=== PATIENT | male | born 1955 | race Caucasian/White ===

== ENCOUNTER 2020-07-07 10:00 | Outpatient (REF) | payer MEDICARE, OTHER, SELFPAY ==
[2020-07-07 11:07] LABS: MANUAL DIFF FLAG NO
[2020-07-07 11:13] LABS: Basophils Percent Auto 0.5 % (0-2); Eosinophils Absolute Auto 0.2 X10*3/uL (0.0-0.4); Eosinophils Percent Auto 4.2 % (0-4); Hematocrit 46.7 % (42-52); Hemoglobin 15.5 g/dl (14.0-18.0); Imm Gran Abs Auto 0.01 X10*3/uL (0.00-0.03); Imm Gran Pct Auto 0.2 % (0.0-0.4); Lymphocytes Absolute Auto 2.3 X10*3/uL (1.2-4.9); Lymphocytes Percent Auto 40.2 % (20-40); Mean Corpuscular HGB Conc 33.2 g/dl (31.0-36.0); Mean Corpuscular Hemoglobin 31.2 pg (27.0-33.0); Mean Platelet Volume 10.6 fL (9.4-12.4); Monocytes Absolute Auto 0.5 X10*3/uL (0.1-1.2); Neutrophils Absolute Auto 2.7 X10*3/uL (2.0-8.3); Neutrophils Percent Auto 46.9 % (45-73); Platelet Count 174 X10*3/uL (160-400); Red Blood Count 4.97 X10*6/uL (4.60-5.80); Red Cell Distribution Width 12.6 % (11.0-16.0); White Blood Count 5.7 X10*3/uL (4.8-10.8)
[2020-07-07 12:12] LABS: Alanine Aminotransferase 38 U/L (0-40); Albumin Level 4.3 g/dL (3.5-5.0); Alkaline Phosphatase 68 U/L (39-117); Anion Gap 11 (12-20); Aspartate Amino Transferase 29 U/L (5-37); Blood Urea Nitrogen 12 mg/dL (9-16); Calcium 9.3 mg/dL (8.4-10.2); Carbon Dioxide 31 mmol/L (22-29); Chloride 104 mmol/L (96-108); Cholesterol 138 mg/dL; Estimated Glomerular Filt Rate > 60; Glucose Fasting 90 mg/dL (60-99); HDL Cholesterol 55 mg/dL; LDL Cholesterol Calculated 68 mg/dl; Potassium 4.5 mmol/L (3.3-5.1); Prostate Specific Antigen 0.38 ng/mL (<0.05-4.0); Sodium 141 mmol/L (135-145); Total Protein 6.8 g/dL (6.5-8.0); Triglycerides 78 mg/dL
== END 2020-07-07 10:01 | disposition home or self-care (01) ==
LOC: HO.MANLDS 10:00
PROVIDERS: PCP Internal Medicine; Visit Provider Internal Medicine
DX: Z00.00 Encounter for general adult medical examination without abnormal findings (principal); Z12.5 Encounter for screening for malignant neoplasm of prostate
CPT/HCPCS: 36415; 80053; 80061; 84153; 85025

== ENCOUNTER 2021-01-26 11:04 | Outpatient (REF) | payer MEDICARE, OTHER, SELFPAY ==
[2021-01-27 11:31] LABS: SARS COV2 IgG Negative (Negative)
== END 2021-01-26 11:05 | disposition home or self-care (01) ==
LOC: HO.MANLDS 11:04
PROVIDERS: PCP Internal Medicine; Visit Provider Internal Medicine
DX: Z20.822 Contact with and (suspected) exposure to COVID-19 (principal)
CPT/HCPCS: 36415; 86769

== ENCOUNTER 2021-08-06 07:39 | Outpatient (REF) | payer MEDICARE, OTHER, SELFPAY ==
[2021-08-06 11:20] LABS: Basophils Percent Auto 0.5 % (0-2); Eosinophils Absolute Auto 0.4 X10*3/uL (0.0-0.4); Eosinophils Percent Auto 5.7 % (0-4); Hematocrit 45.7 % (42.0-52.0); Hemoglobin 15.1 g/dl (14.0-18.0); Imm Gran Abs Auto 0.01 X10*3/uL (0.00-0.03); Imm Gran Pct Auto 0.2 % (0.0-0.4); Lymphocytes Absolute Auto 2.5 X10*3/uL (1.2-4.9); Lymphocytes Percent Auto 40.4 % (20-40); MANUAL DIFF FLAG NO; Mean Corpuscular Hemoglobin 30.7 pg (27.0-33.0); Mean Corpuscular Volume 92.9 fL (80.0-98.0); Mean Platelet Volume 10.8 fL (9.4-12.4); Monocytes Absolute Auto 0.5 X10*3/uL (0.1-1.2); Monocytes Percent Auto 8.4 % (2-11); Neutrophils Absolute Auto 2.8 x10*3/uL (2.0-8.3); Neutrophils Percent Auto 44.8 % (45-73); Platelet Count 166 X10*3/uL (160-400); Red Blood Count 4.92 X10*6/uL (4.60-5.80); Red Cell Distribution Width 12.8 % (11.0-16.0); White Blood Count 6.2 X10*3/uL (4.8-10.8)
[2021-08-06 12:31] LABS: Alanine Aminotransferase 24 U/L (0-40); Alkaline Phosphatase 60 U/L (39-117); Anion Gap 12 (12-20); Aspartate Amino Transferase 20 U/L (5-37); Bilirubin Total 0.6 mg/dL (0.0-1.0); Blood Urea Nitrogen 15 mg/dL (9-16); Calcium 9.1 mg/dL (8.4-10.2); Carbon Dioxide 29 mmol/L (22-29); Chloride 104 mmol/L (96-108); Cholesterol 154 mg/dL; Estimated Glomerular Filt Rate > 60; Glucose Random 110 mg/dL (60-115); HDL Cholesterol 51 mg/dL; LDL Cholesterol Calculated 77 mg/dl; Potassium 4.8 mmol/L (3.3-5.1); Sodium 140 mmol/L (135-145); Total Protein 6.5 g/dL (6.5-8.0); Triglycerides 134 mg/dL
[2021-08-06 12:52] LABS: Prostate Specific Antigen 0.45 ng/mL (<0.05-4.0)
== END 2021-08-06 07:40 | disposition home or self-care (01) ==
LOC: HO.MANLDS 07:39
PROVIDERS: Visit Provider Internal Medicine
DX: Z00.00 Encounter for general adult medical examination without abnormal findings (principal); Z12.5 Encounter for screening for malignant neoplasm of prostate
CPT/HCPCS: 36415; 80053; 80061; 82306; 84153; 85025

== ENCOUNTER 2022-10-25 14:30 | Outpatient (REF) | payer MEDICARE, OTHER, SELFPAY | END 2022-10-25 14:31 | disposition home or self-care (01) | LOC: HO.MANLNP 14:30 | PROVIDERS: Visit Provider Physician Assistant | DX: R07.0 Pain in throat (principal) | CPT/HCPCS: 87070 ==

== ENCOUNTER 2022-12-23 07:47 | Outpatient (REF) | payer MEDICARE, OTHER, SELFPAY ==
[2022-12-23 12:33] LABS: MANUAL DIFF FLAG NO
[2022-12-23 12:47] LABS: Basophils Percent Auto 0.6 % (0-2); Eosinophils Absolute Auto 0.4 X10*3/uL (0.0-0.4); Eosinophils Percent Auto 6.6 % (0-4); Hematocrit 45.6 % (42.0-52.0); Hemoglobin 15.2 g/dl (14.0-18.0); Imm Gran Abs Auto 0.01 X10*3/uL (0.00-0.03); Imm Gran Pct Auto 0.2 % (0.0-0.4); Lymphocytes Absolute Auto 2.8 X10*3/uL (1.2-4.9); Lymphocytes Percent Auto 43.7 % (20-40); Mean Corpuscular HGB Conc 33.3 g/dl (31.0-36.0); Mean Corpuscular Volume 93.1 fL (80.0-98.0); Mean Platelet Volume 10.8 fL (9.4-12.4); Monocytes Absolute Auto 0.6 X10*3/uL (0.1-1.2); Neutrophils Absolute Auto 2.5 x10*3/uL (2.0-8.3); Neutrophils Percent Auto 39.9 % (45-73); Platelet Count 166 X10*3/uL (160-400); Red Cell Distribution Width 13.4 % (11.0-16.0); White Blood Count 6.3 X10*3/uL (4.8-10.8)
[2022-12-23 13:35] LABS: Alanine Aminotransferase 21 U/L (0-40); Albumin Level 3.9 g/dL (3.5-5.0); Alkaline Phosphatase 60 U/L (39-117); Anion Gap 13 (12-20); Aspartate Amino Transferase 20 U/L (5-37); Bilirubin Total 0.7 mg/dL (0.0-1.0); Blood Urea Nitrogen 21 mg/dL (9-16); Calcium 9.2 mg/dL (8.4-10.2); Carbon Dioxide 26 mmol/L (22-29); Chloride 105 mmol/L (96-108); Cholesterol 138 mg/dL (<200); Estimated Glomerular Filt Rate > 60; Glucose Random 84 mg/dL (60-115); HDL Cholesterol 47 mg/dL (>40); LDL Cholesterol Calculated 73 mg/dL (<100); Potassium 4.1 mmol/L (3.3-5.1); Sodium 140 mmol/L (135-145); Total Protein 6.6 g/dL (6.5-8.0); Triglycerides 90 mg/dL (<150)
[2022-12-23 14:41] LABS: Prostate Specific Antigen 0.57 ng/mL (<0.05-4.0)
== END 2022-12-23 07:48 | disposition home or self-care (01) ==
LOC: HO.MANLNP 07:47
PROVIDERS: Visit Provider Internal Medicine
DX: Z00.01 Encounter for general adult medical examination with abnormal findings (principal); Z12.5 Encounter for screening for malignant neoplasm of prostate; Z13.6 Encounter for screening for cardiovascular disorders
CPT/HCPCS: 36415; 80053; 80061; 84153; 85025

== ENCOUNTER 2023-04-10 16:12 | Outpatient (REF) | payer MEDICARE, OTHER, SELFPAY ==
[2023-04-10 17:51] LABS: C Reactive Protein 24.49 mg/dL (< or = 0.50)
[2023-04-10 18:26] LABS: Erythrocyte Sedimentation Rate 38 MM/HR (0-15)
[2023-04-10 18:30] LABS: Basophils Percent Auto 0.2 % (0-2); Eosinophils Percent Auto 0.3 % (0-4); Hematocrit 44.1 % (42.0-52.0); Hemoglobin 15.1 g/dl (14.0-18.0); Imm Gran Abs Auto 0.02 X10*3/uL (0.00-0.03); Imm Gran Pct Auto 0.2 % (0.0-0.4); Lymphocytes Absolute Auto 1.8 X10*3/uL (1.2-4.9); Lymphocytes Percent Auto 16.5 % (20-40); MANUAL DIFF FLAG SCAN; Mean Corpuscular HGB Conc 34.2 g/dl (31.0-36.0); Mean Corpuscular Hemoglobin 30.7 pg (27.0-33.0); Mean Corpuscular Volume 89.6 fL (80.0-98.0); Mean Platelet Volume 11.3 fL (9.4-12.4); Monocytes Absolute Auto 1.3 X10*3/uL (0.1-1.2); Monocytes Percent Auto 11.8 % (2-11); Neutrophils Absolute Auto 7.8 x10*3/uL (2.0-8.3); PLT CLUMP 1; Red Blood Count 4.92 X10*6/uL (4.60-5.80); Red Cell Distribution Width 13.1 % (11.0-16.0); SCAN SMEAR FLAG 1
[2023-04-10 18:58] LABS: Platelet Count 147 X10*3/uL (160-400); SLIDE REVIEW VERIFIED
[2023-04-11 09:38] LABS: Lyme Abs Screen <0.90 index
[2023-04-13 21:19] LABS: Spotted Fever Group IgG Not Detected (Not Detected); Spotted Fever Group IgM Not Detected (Not Detected); Typhus Fever Group IgG Not Detected (Not Detected); Typhus Fever Group IgM Not Detected (Not Detected)
[2023-04-20 10:08] LABS: A. Phagocytophilum Ab IgG <1:64 (<1:64); A. Phagocytophilum Ab IgM <1:20 (<1:20); E. Chaffeensis Ab IgG <1:64 (<1:64); E. Chaffeensis Ab IgM <1:20 (<1:20)
== END 2023-04-10 16:13 | disposition home or self-care (01) ==
LOC: HO.LAB 16:12
PROVIDERS: PCP Internal Medicine; Visit Provider Physician Assistant
DX: T63.481A Toxic effect of venom of other arthropod, accidental (unintentional), initial encounter (principal); R50.81 Fever presenting with conditions classified elsewhere; Z20.821 Contact with and (suspected) exposure to Zika virus
CPT/HCPCS: 85025; 85652; 86140; 86617; 86618; 86666; 86757; 86790; 87086; 87207

== ENCOUNTER 2023-04-12 15:22 | Outpatient (REF) | payer MEDICARE, OTHER, SELFPAY | END 2023-04-12 15:23 | disposition home or self-care (01) | LOC: HO.LAB 15:22 | PROVIDERS: Visit Provider Physician Assistant | DX: R50.9 Fever, unspecified (principal) | CPT/HCPCS: 87040 ==

== ENCOUNTER → 2023-04-18 09:59 | Outpatient (REF) | payer MEDICARE, OTHER, SELFPAY ==
--- NOTE | 2023-04-18 10:04 | CA_ITS ---
Transthoracic Echocardiogram Patient (Last, First, Middle): Rick Carney, Gender: Male Date of : 1955 Age: 67 Procedure Date: 04/18/2023 Procedure Type: Transthoracic Echocardiogram Location: OP Height: 182.88 cm Weight: 90.72 kg BSA: 2.13 m2 Heart Rate: 62 bpm BP: 110 / 68 mmHg Skating Rink Manager: SHAN Referring MD: Malissa ARDON Technical Services Consultant: Maurice Ha MD Symptoms: R50.81 FEVER PRESENTING UNKNOWN ORGIN, HX MYCARDITIS, CHEST PRESSURE Study Quality: Fair ECG Rhythm: Sinus Conclusions: - 1. Normal LV ejection fraction of 60 65% 2. No clear evidence of cardiac vegetations with normal cardiac valvular Dopplers 3. No gross pericardial effusion Findings Procedure Information The quality of the study was technically difficult. The study quality is limited by lung artifact. Left Ventricle Normal left ventricular size, thickness, and systolic function. The visually estimated ejection fraction is between 60-65%. Spectral Doppler is indicative of a normal filling pattern. Right Ventricle Normal right ventricular cavity size and systolic function. Atria The left atrium is normal in size. Interatrial shunt cannot be excluded. The right atrium is normal in size. Aortic Valve The aortic valve structure and function is likely normal. There is no aortic valve stenosis. There is no aortic valve regurgitation. Mitral Valve Normal mitral valve structure and function. There is no mitral valve regurgitation. There is no mitral valve stenosis. Pulmonic Valve The pulmonic valve was not well visualized. Tricuspid Valve Likely normal tricuspid valve structure and function. Tricuspid regurgitation envelope is inadequate for calculation of right ventricular systolic pressure. Normal right atrial pressure. Great Vessels All visible segments of the aorta are normal in size. The pulmonary artery was not well visualized. Venous The inferior vena cava is normal in size and collapses greater than 50% with inspiration. Pericardium/Pleural There is no evidence of pericardial effusion. Prior Study Comparison No prior study available for comparison. Measurements 2D Linear Measurements IVSd: 0.83 0.6-0.9/0.6-1.0 cm LVIDd: 5.63 3.9-5.3/4.2-5.9 cm LVIDd Index: 2.64 2.4-3.2/2.2-3.1 cm/m2 LVIDs: 3.42 2.0-3.6 cm LVPWd: 0.73 0.7-1.1 cm LA Diam: 4.40 2.7-3.8/3.0-4.0 cm LAIDs Index: 2.07 1.5-2.3 cm/m2 LV Mass: 200.65 67-162/88-224 g LV Mass Index: 94.20 43-95/49-115 g/m2 LVOT Diam: 2.00 3.0+(-)1.3 cm 2D Systolic Function EF 4C: 57.00 >55% EF 2C: 66.60 >55% EF BiP: 62.30 >55% Mitral Valve MV Pk E: 0.84 MV PK A: 0.67 MV Decel Time: 217.00 E/A: 1.30 E'Lateral: 9.46 E'Medial: 6.09 E/E' Med: 13.80 E/E' Lat: 8.90 PHT: 64.00 MVA PHT: 3.44 Decel [place]: 3.87 Aortic Valve AoV Pk Uziel: 1.69 AoV Pk Grad: 11.00 REJI: 3.00 LVOT LVOT Pk Uziel: 1.65 LVOT Mn Uziel: 1.06 LVOT VTI: 0.32 LVOT Pk Grad: 11.00 LVOT Mn Grad: 5.00 LVOT Diam: 2.00 LVOT Area: 3.14 Diastolic Function MV Pk E: 0.84 MV Pk A: 0.67 E/A: 1.30 E'Medial: 6.09 E/E' Med: 13.80 E' Laterial: 9.46 E/E' Lat: 8.90 Right Ventricle TAPSE (mm): 23.40 TVS' Uziel: 15.20 Tricuspid Valve RA Press: 3.00 Great Vessels Aorta Sinus of Valsalva: 3.00 2.0-3.5 cm Ao Asc: 3.80 2.1-3.4 cm Ao Arch: 3.10 Pulmonary Veins Pulm Vein S/D 0.90 Pulmonary Valve PV Pk Uziel: 1.34 Peak PV Grad: 7.00 Updated in Other Vendor System with Status of Final Maurice Ha MD electronically signed on 04/18/2023 12:20:18 PM with status of Final
== END ==
LOC: HO.CARD 09:59
PROVIDERS: PCP Internal Medicine; Visit Provider Physician Assistant
DX: R50.82 Postprocedural fever (principal)
CPT/HCPCS: 93306

== ENCOUNTER → 2023-04-18 10:04 | Outpatient (BNV) | payer MEDICARE, OTHER, SELFPAY | PROVIDERS: PCP Internal Medicine; Visit Provider Internal Medicine Cardiovascular Disease | DX: R07.89 Other chest pain (principal); R50.81 Fever presenting with conditions classified elsewhere | CPT/HCPCS: 93306 ==

== ENCOUNTER 2023-04-21 15:35 | Outpatient (REF) | payer MEDICARE, OTHER, SELFPAY ==
[2023-04-21 17:53] LABS: Thyroid Stimulating Hormone 1.09 uIU/mL (0.32-4.0)
[2023-04-22 07:43] LABS: Triiodothyronine T3 Free 3.1 pg/mL (2.3-4.2)
[2023-04-22 12:33] LABS: Thyroid Peroxidase Antibodies 1 IU/mL (<9)
== END 2023-04-21 15:36 | disposition home or self-care (01) ==
LOC: HO.LAB 15:35
PROVIDERS: PCP Internal Medicine; Visit Provider Physician Assistant
DX: T63.481A Toxic effect of venom of other arthropod, accidental (unintentional), initial encounter (principal); R50.81 Fever presenting with conditions classified elsewhere
CPT/HCPCS: 36415; 84443; 84481; 86376

== ENCOUNTER 2023-12-29 08:58 | Outpatient (REF) | payer MEDICARE, OTHER, SELFPAY ==
[2023-12-29 13:21] LABS: MANUAL DIFF FLAG NO
[2023-12-29 13:44] LABS: Basophils Absolute Auto 0.1 X10*3/uL (0.0-0.2); Basophils Percent Auto 0.9 % (0-2); Eosinophils Absolute Auto 0.5 X10*3/uL (0.0-0.4); Eosinophils Percent Auto 9.7 % (0-4); Hematocrit 44.8 % (42.0-52.0); Hemoglobin 15.2 g/dl (14.0-18.0); Imm Gran Abs Auto 0.01 X10*3/uL (0.00-0.03); Imm Gran Pct Auto 0.2 % (0.0-0.4); Lymphocytes Absolute Auto 2.4 X10*3/uL (1.2-4.9); Lymphocytes Percent Auto 45.4 % (20-40); Mean Corpuscular HGB Conc 33.9 g/dl (31.0-36.0); Mean Corpuscular Hemoglobin 31.3 pg (27.0-33.0); Mean Corpuscular Volume 92.4 fL (80.0-98.0); Mean Platelet Volume 11.1 fL (9.4-12.4); Monocytes Absolute Auto 0.5 X10*3/uL (0.1-1.2); Monocytes Percent Auto 9.3 % (2-11); Neutrophils Absolute Auto 1.9 x10*3/uL (2.0-8.3); Neutrophils Percent Auto 34.5 % (45-73); Platelet Count 145 X10*3/uL (160-400); Red Blood Count 4.85 X10*6/uL (4.60-5.80); Red Cell Distribution Width 12.9 % (11.0-16.0); White Blood Count 5.4 X10*3/uL (4.8-10.8)
[2023-12-29 14:19] LABS: Alanine Aminotransferase 28 U/L (0-40); Albumin Level 3.8 g/dL (3.5-5.0); Alkaline Phosphatase 60 U/L (39-117); Anion Gap 11 (12-20); Aspartate Amino Transferase 26 U/L (5-37); Bilirubin Total 0.9 mg/dL (0.0-1.0); Blood Urea Nitrogen 20 mg/dL (9-16); Calcium 9.3 mg/dL (8.4-10.2); Carbon Dioxide 25 mmol/L (22-29); Chloride 110 mmol/L (96-108); Cholesterol 131 mg/dL (<200); Estimated Glomerular Filt Rate > 60; Glucose Random 85 mg/dL (60-115); HDL Cholesterol 49 mg/dL (>40); LDL Cholesterol Calculated 64 mg/dL (<100); Potassium 4.2 mmol/L (3.3-5.1); Sodium 142 mmol/L (135-145); Total Protein 6.5 g/dL (6.5-8.0); Triglycerides 93 mg/dL (<150)
== END 2023-12-29 08:59 | disposition home or self-care (01) ==
LOC: HO.MANLDS 08:58
PROVIDERS: Visit Provider Internal Medicine
DX: Z00.00 Encounter for general adult medical examination without abnormal findings (principal); Z12.11 Encounter for screening for malignant neoplasm of colon; Z13.6 Encounter for screening for cardiovascular disorders
CPT/HCPCS: 36415; 80053; 80061; 85025

== ENCOUNTER 2025-01-22 07:32 | Outpatient (REF) | payer MEDICARE, OTHER, SELFPAY ==
--- OUTSIDE RECORDS SUMMARY | 2022-04-13 15:37 | XMS_ITS | Encounter Summary ---
Author Organization [facility] Address [address] [facility] [address] [place] [id number] Phone Care Team Providers Care Culinary Arts Instructor Name Role Phone Moyrebeca Nguyễn Ojeda DO Unavailable Marko Breaux MD Unavailable Nguyễn Vance DO Primary Care Provider [phone] Encounter Details Date Type Department Care Team (Late st Contact Info) Description 04/13/2022 3:37 PM EST Hospital Encounter [facility] [address] [place] [id number] Daphne Spangler CNP [address] [place] [address] [email or web address] Social History Tobacco Use Types Packs/Day Years Used Date Smoking Tobacco: Former Cigarettes Smokeless Tobacco: Never Alcohol Use Standard Drinks/Week Comments Yes 0 (1 standard drink = 0.6 oz pur e alcohol) 2 weekly Education Answer Date Recorded Are you interested in more education? Not on philipp e 06/24/2022 Are you concerned about learning? Not on file 06/24/2022 No 06/24/2022 No 06/24/2022 Digital Access Answer Date Recorded No 07/23/2022 No 07/23/2022 Reliable internet access at home? Not on file 07/23/2022 Device with a working camera? Not on file Intimate Partner Violence Answer Date R ecorded Are you denied basic needs s uch as food, clothing, or medical care? No 02/08/2023 In the past 12 months have y ou been in a relationship with a person who hurts, threatens, or tries to control you? No 02/08/2023 Are you denied basic needs s uch as food, clothing, or medical care? No 02/08/2023 In the past 12 months have y ou been in a relationship with a person who hurts, threatens, or tries to control you? No 02/08/2023 Sex and Gender Information Value Date Recorded Sex Assigned at Not on file Legal Sex Male 9:56 PM EDT Gender Identity Not on file Sexual Orientation Not on file documented as of this encounter Plan of Treatment Not on file documented as of this encounter Procedures Procedure Name Priority Date/Time Associated Diagnosis Comments XR FINGER 2 OR MORE VIEWS (RIGHT) Urgent/patient waiting 04/13/2022 3:43 PM EST Finger pain, right documented in this encounter Results * XR FINGER 2 OR MORE VIEWS (RIGHT) (04/13/2022 3:43 PM EST) Anatomical Region Laterality Modality Hand Right Computed Radiogr aphy 04/13/2022 3:51 PM EST Impressions 04/13/2022 3:56 PM EST 1. Intra-articular nondisplaced fracture to the base of the fifth digit phalanx. Associated soft tissue swelling. 2. Degenerative changes as described above. Narrative 04/13/2022 3:56 PM EST XR FINGER 2 OR MORE VIEWS (RIGHT) COMPARISON: None. FINDINGS: Intra-articular nondisplaced fracture to the base of the fifth digit phalanx. Associated soft tissue swelling. Narrowing of the DIPs and PIPs of all the digits with marginal osteophyte formation. Limited evaluation of the second and third metacarpophalangeal joints could be due to degree of flexion. Narrowing of the distal radiocarpal joint. Procedure Note Leydi [place] MD - 04/13/2022 XR FINGER 2 OR MORE VIEWS (RIGHT) COMPARISON: None. FINDINGS: Intra-articular nondisplaced fracture to the base of the fifth digitphalanx. Associated soft tissue swelling. Narrowing of the DIPs and PIPs of all the digits with marginal osteophyteformation. Limited evaluation of the second and third metacarpophalangealjoints could be due to degree of flexion. Narrowing of the distal radiocarpal joint. IMPRESSION: 1. Intra-articular nondisplaced fracture to the base of the fifth digitphalanx. Associated soft tissue swelling. 2. Degenerative changes as described above. us Daphne Spangler BUILDING CODE ADMINISTRATOR IMG XR UPPER EXTREMITY Emily l Result documented in this encounter Visit Diagnoses Not on filedocumented in this encounter Additional Health Concerns Infection Onset Date Last Indicated Resolved Time CoV-Risk 03/01/2024 03/01/2024 03/12/2024 1:22 AM EST Resp-Risk 01/16/2025 01/16/2025 documented as of this encounter Care Teams Culinary Arts Instructor Relationship Specialty Start Date End Date Nguyễn Vance DO PCP - General Internal Medicine 09/16/20 01/15/25 Nguyễn Vance DO Historical LMR Provider 12/13/16 Marko Breaux MD [email or web address] Historical LMR Provider 12/13/16 documented as of this encounter Additional Source Comments The information contained in this document represents components of the legal health record. It is not the complete legal health record.[facility]
--- OUTSIDE RECORDS SUMMARY | 2025-01-16 08:10 | XMS_ITS | Encounter Summary ---
Author Organization [facility] Address [address] [facility] [address] [place] [address] Phone Care Team Providers Care Farm Machinery Engine Mechanic Name Role Phone Moyrebeca Nguyễn Ojeda DO Unavailable Marko Breaux MD Unavailable Nguyễn Vance DO Primary Care Provider [phone] Reason for Visit * Reason Comments Nasal Congestion Sinus congestion for the past month, chest congestion 2 weeks,fatigued,body aches, productive cough, irritation of throat,wheezing. Hx of pneumonia. Encounter Details Date Type Department Care Team (Late st Contact Info) Description 01/16/2025 8:10 AM EST Office Visit [facility] at [address] [address] Marnie Michael, CAR REPAIRER HELPER [address] [place] [phone] Daphne Spangler, CAR REPAIRER HELPER [address] [place] [phone] Acute cough (Primary Dx); Other fatigue; Sinus congestion Social History Tobacco Use Types Packs/Day Years [...] on file documented as of this encounter Last Filed Vital Signs Vital Sign Reading Time Taken Comments Blood Pressure 121/63 01/16/2025 8:23 AM EST Pulse 68 01/16/2025 8:23 AM EST Temperature 37 C (98.6 F) 01/16/2025 8:23 AM EST Respiratory Rate 20 01/16/2025 8:23 AM EST Oxygen Saturation 100% 01/16/2025 8:23 AM EST Inhaled Oxygen Concentration - - Weight 95.3 kg (210 lb) 01/16/2025 8:23 AM EST Height 182.9 cm (6') 01/16/2025 8:23 AM EST Body Mass Index 28.48 01/16/2025 8:23 AM EST documented in this encounter Progress Notes * Daphne Spangler CNP - 01/16/2025 8:10 AM EST Images from the original note were not included. Subjective: Patient ID: Rick Carney is a 69 y.o. male. 77-year-old male patient presents with 4 weeks of URI symptoms with cough. Patient states having work done in the home and has seasonal allergies so originally thought symptoms were caused by dust. Patient did not worry much about symptoms and left on 12/31/2024 for 2-week cruise from [place]-was a river cruise. Patient was noting high blood pressure at home prior to the cruise-saw collating machine operator and started on 2.5 mg of Norvasc. Otherwise no med changes. Patient states there has been about 2 weeks of fatigue and body aches. Notes sinus pressure for over a month. No ear pain. Notes that throatis mildly irritated from postnasal drip and cough. Cough is intermittently productive- primarily during the day. Initially was more brown and green but now is more white. Patient did have some mild shortness of breath with stairs on the cruise. Denies any chest pain or syncope. Did have mild peripheral edema after getting off the first flight but otherwise has had no peripheral edema. No hemoptysis. Review of Systems Constitutional: Positive for fatigue. Negative for appetite change, chills, diaphoresis and fever. HENT: Positive for congestion, postnasal drip and sinus pressure. Negative for ear pain, mouth sores, rhinorrhea, sneezing and trouble swallowing. Sore throat: irritated. Respiratory: Positive for cough and wheezing. Negative for chest tightness and shortness of breath. Gastrointestinal: Negative for abdominal pain and nausea. Allergic/Immunologic: Negative for immunocompromised state. Neurological: Negative for dizziness, syncope and headaches. Skin: Negative for persistent rash and wound. Musculoskeletal: Positive for myalgias. Negative for joint pain. Vitals: 01/16/25 0823 BP: 121/63 BP Location: Left arm Patient Position: Sitting Cuff Size: Medium Pulse: 68 Resp: 20 Temp: 37 ??C (98.6 ??F) TempSrc: Oral SpO2: 100% Weight: 95.3 kg (210 lb) Height: 182.9 cm (6') Objective: Physical Exam Vitals and nursing note reviewed. Constitutional: General: He is not in acute distress. Appearance: Normal appearance. He is obese. He is not ill-appearing, toxic- appearing or diaphoretic. Comments: Sitting comfortably on exam table Speaks in full sentences HENT: Head: Normocephalic and atraumatic. Comments: Wearing facial mask, removed briefly for exam Right Ear: Tympanic membrane, ear canal and external ear normal. There is no impacted cerumen. Left Ear: Tympanic membrane, ear canal and external ear normal. There is no impacted cerumen. Nose: Congestion present. No rhinorrhea. Mouth/Throat: Mouth: Mucous membranes are moist. Pharynx: Oropharynx is clear. No oropharyngeal exudate or posterior oropharyngeal erythema. Cardiovascular: Rate and Rhythm: Normal rate and regular rhythm. Heart sounds: Normal heart sounds. No murmur heard. No friction rub. No gallop. Pulmonary: Effort: Pulmonary effort is normal. No respiratory distress. Breath sounds: Normal breath sounds. No stridor. No wheezing, rhonchi or rales. Musculoskeletal: Cervical back: Normal range of motion and neck supple. No rigidity or tenderness. Right lower leg: No edema. Left lower leg: No edema. Lymphadenopathy: Cervical: No cervical adenopathy. Skin: General: Skin is warm and dry. Capillary Refill: Capillary refill takes less than 2 seconds. Neurological: General: No focal deficit present. Mental Status: He is alert and oriented to person, place, and time. Psychiatric: Mood and Affect: Mood normal. Behavior: Behavior normal. Results for orders placed or performed in visit on 01/16/25 POCT SARS-CoV-2, Influenza A/B, RSV, PCR Result Value Ref Range SARS-Cov-2 PCR Negative Negative POC Influenza A Negative Negative POC Influenza B Negative Negative RSV PCR Negative Negative Procedure: Procedures Assessment/Plan: Diagnosis Plan 1. Acute cough XR Chest 2. Other fatigue 3. Sinus congestion Results and Data Reviewed: I personally reviewed the radiology results. Interventions: Check imaging. 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 States symptoms began prior but he thought it was due to dust and allergies as there is some work being done in the home Also noted elevated blood pressure prior to cruise contacted collating machine operator and started amlodipine 2.5 mg Only had mild peripheral edema on the first flight otherwise no peripheral edema No chest pain or syncope. No hemoptysis. 4 weeks of cough-chest x-ray obtained- no abnormality notedper provider. Patient states noted intermittent wheeze-not noted on exam No evidence of OM/OE, bacterial sinusitis, bronchitis, pneumonia or pleural effusion 4 Plex is negative Discussed with patient diagnostic impression is likely viral and advised rest, hydration- family is hosting for Thanksgiving and they are just happy to know that 4 Plex is (-). Agree with plan * Diego Mercado MD - 01/16/2025 8:10 AM EST Subject Line: Provider Attestation I have reviewed the notes, assessments, and/or procedures performed by Daphne Spangler CNP, I concur with her/his documentation of Rick Carney. documented in this encounter Plan of Treatment Not on file documented as of this encounter Procedures Procedure Name Priority Date/Time Associated Diagnosis Comments XR CHEST PA AND LATERAL 2 VIEWS Urgent/patient waiting 01/16/2025 8:41 AM EST Acute cough POCT SARS-COV-2, INFLUENZA A/B, RSV, PCR Routine 01/16/2025 8:27 AM EST documented in this encounter Results * XR CHEST PA AND LATERAL 2 VIEWS (01/16/2025 8:41 AM EST) Anatomical Region Laterality Modality Chest Computed Radiogr aphy 01/16/2025 8:47 AM EST Impressions 01/16/2025 9:18 AM EST No acute abnormality. ATTESTATION: I, Alejandrina Chavarria as teaching physician, have reviewed the images for this case and if necessary edited the report originally created by Francisco Noguera. Narrative 01/16/2025 9:18 AM EST XR CHEST PA AND LATERAL 2 VIEWS Referring clinician's provided indication for this examination in Epic: Cough COMPARISON: XR CHEST PA AND LATERAL 2 VIEWS FINDINGS: Devices/Tubes/Lines: None. Lungs: No focal consolidation or pulmonary edema. Rounded subcentimeter structure projecting over the left lower lung is likely a nipple shadow. Pleura: No pleural effusion or pneumothorax. Heart/Mediastinum: Normal heart size and mediastinal contours. Bones/Soft Tissues: Degenerative changes of the thoracic spine. Procedure Note Alejandrina Chavarria MD, ANATOLY - 01/16/2025 XR CHEST PA AND LATERAL 2 VIEWS Referring clinician's provided indication for this examination in Epic:Cough COMPARISON: XR CHEST PA AND LATERAL 2 VIEWS 2024- FINDINGS: Devices/Tubes/Lines: None. Lungs: No focal consolidation or pulmonary edema. Rounded subcentimeterstructure projecting over the left lower lung is likely a nipple shadow. Pleura: No pleural effusion or pneumothorax. Heart/Mediastinum: Normal heart size and mediastinal contours. Bones/Soft Tissues: Degenerative changes of the thoracic spine. IMPRESSION: No acute abnormality. ATTESTATION: I, Alejandrina Chavarria as teaching physician, have reviewed theimages for this case and if necessary edited the report originally createdby Francisco Noguera. us Dpahne Spangler CNP IMG XR CHEST Final Resul t * POCT SARS-CoV-2, Influenza A/B, RSV, PCR (01/16/2025 8:27 AM EST) [facility] SARS-Cov-2 PCR Negative Negative 01/16/2025 9:08 AM EST [facility] Influenza A Negative Negative 01/16/2025 9:08 AM EST [facility] Influenza B Negative Negative 01/16/2025 9:08 AM EST [facility] RSV PCR Negative Negative 01/16/2025 9:08 AM EST [facility] Swab (Anterior Nares) 01/16/2025 8:27 AM EST 01/16/2025 9:08 AM EST us Marnie Michael CAR REPAIRER HELPER LAB POCT DOCKED DEVICE UNSOLICTED RESULTS Final Result [facility] [address] [address], [facility] [phone] documented in this encounter Visit Diagnoses Diagnosis Acute cough- Primary Other fatigue Sinus congestion Other diseases of nasal cavity and sinuses documented in this encounter Additional Health Concerns Infection Onset Date Last Indicated Resolved Time Resp-Risk 01/16/2025 01/16/2025 documented as of this encounter Care Teams Farm Machinery Engine Mechanic Relationship Specialty Start Date End Date Nguyễn Vance DO [address] [place] [address] PCP - General Internal Medicine 01/16/25 Nguyễn Vance DO [email or web address] Historical LMR Provider 12/13/16 Marko Breaux MD [email or web address] Historical LMR Provider 12/13/16 documented as of this encounter Additional Source Comments The information contained in this document represents components of the legal health record. It is not the complete legal health record.[facility]
--- OUTSIDE RECORDS SUMMARY | 2025-01-16 08:37 | XMS_ITS | Encounter Summary ---
Author Organization [facility] Address [address] [facility] [address] [place] [address] Phone Care Team Providers Care Ecotherapist Name Role Phone Moyrebeca Nguyễn Ojeda DO Unavailable Marko Breaux MD Unavailable Nguyễn Vance DO Primary Care Provider Encounter Details Date Type Department Care Team (Late st Contact Info) Description 01/16/2025 8:37 AM EST Hospital Encounter [facility] [address] [place] [address] Daphne Spangler CNP [address] [place] [address] [email or web address] Social History Tobacco Use Types Packs/Day Years [...] waiting 01/16/2025 8:41 AM EST Acute cough documented in this encounter Results * XR [...] edited the report originally createdby Francisco Noguera. Daphne Spangler CREDIT RISK OFFICER IMG XR CHEST Final Resul t documented in this encounter Visit Diagnoses Not on filedocumented in this encounter Additional Health Concerns Infection Onset Date Last Indicated Resolved Time Resp-Risk 01/16/2025 01/16/2025 documented as of this encounter Care Teams Ecotherapist Relationship Specialty Start Date End Date Nguyễn Vance DO [address] [place] [address] PCP - General Internal Medicine 01/16/25 Nguyễn Vance DO [email or web address] Historical LMR Provider 12/13/16 Marko Breaux MD [email or web address] Historical LMR Provider 12/13/16 documented as of this encounter Additional Source Comments The information contained in this document represents components of the legal health record. It is not the complete legal health record.[facility]
--- OUTSIDE RECORDS SUMMARY | 2025-01-22 07:35 | XMS_ITS | Encounter Summary ---
Author Organization [facility] Address [address] [place] [address] Phone Care Team Providers Care Air Force Pilot Name Role Phone MoyNguyễn jose Unavailable Marko Breaux MD Unavailable Bigrebeca, Nguyễn Ojeda DO Primary Care Provider Nguyễn Vance DO Primary Care Provider Encounter Details Date Type Department Care Team (Late st Contact Info) Description 04/11/2023 Ancillary Orders [facility], X-Ray - [facility] [address] [place] [address] Malissa Tanner PA [address] [facility] [address] [place] [address] Fever presenting with conditions classified elsewhere (Primary Dx) Social History Tobacco Use Types Packs/Day Years [...] on file documented as of this encounter Results * XR CHEST PA AND LATERAL 2 VIEWS (04/11/2023 3:16 PM EST) Anatomical Region Laterality Modality Chest Computed Radiogr aphy 04/11/2023 4:20 PM EST Impressions 04/11/2023 4:21 PM EST Right upper lobe consolidation most consistent with pneumonia. RECOMMENDATIONS: 4-6 week follow-up radiograph to ensure resolution Narrative 04/11/2023 4:21 PM EST XR CHEST PA AND LATERAL 2 VIEWS Referring clinician's provided indication for this examination in [facility]: Fever COMPARISON: February 06, 2019 FINDINGS: Lungs: Right upper lobe consolidation most consistent with pneumonia. Pleura: No pleural effusion. No pneumothorax Heart/Mediastinum: Heart size normal. Bones/Soft Tissues: No acute finding Procedure Note Sourav Thomas MD, ANATOLY - 04/11/2023 XR CHEST PA AND LATERAL 2 VIEWS Referring clinician's provided indication for this examination in [facility]:Fever COMPARISON: February 06, 2019 FINDINGS: Lungs: Right upper lobe consolidation most consistent with pneumonia. Pleura: No pleural effusion. No pneumothorax Heart/Mediastinum: Heart size normal. Bones/Soft Tissues: No acute finding IMPRESSION: Right upper lobe consolidation most consistent with pneumonia. RECOMMENDATIONS: 4-6 week follow-up radiograph to ensure resolution Malissa ARDON IMG XR CHEST Final Resul t documented in this encounter Visit Diagnoses Diagnosis Fever presenting with conditions classified elsewhere- Primary Fever presenting with conditions classified elsewhere documented in this encounter Additional Health Concerns Infection Onset Date Last Indicated Resolved Time CoV-Risk 03/01/2024 03/01/2024 03/12/2024 1:22 AM EST Resp-Risk 01/16/2025 01/16/2025 documented as of this encounter Care Teams [employer] Pilot Relationship Specialty Start Date End Date Nguyễn Vance DO [email or web address] PCP - General Internal Medicine 09/16/20 01/15/25 Nguyễn Vance DO [address] [place] [address] PCP - General Internal Medicine 01/16/25 Nguyễn Vance DO [email or web address] Historical LMR Provider 12/13/16 Marko Breaux MD [email or web address] Historical LMR Provider 12/13/16 documented as of this encounter Additional Source Comments The information contained in this document represents components of the legal health record. It is not the complete legal health record.[facility]
--- OUTSIDE RECORDS SUMMARY | 2025-01-22 07:35 | XMS_ITS | Clinical Summary ---
Author Organization [facility] Address [address] [place] [address] Phone Care Team Providers Care Wild Life Photographer Name Role Phone Nguyễn Vance DO Unavailable Marko Breaux MD Unavailable Nguyễn Vance DO Primary Care Provider [phone] Allergies Active Allergy Reactions Criticality Noted Date Comments Melon Throat Tightness Medium 12/29/2021 Rydal Throat Tightness Medium 12/29/2021 Medications omeprazole (PRILOSEC) 20 MG capsule Take 40 mg by mouth daily. 05/19/19 11 Active fluticasone propionate (FLONASE) 50 mcg/actuation nasal spray 2 sprays by Each Nare route daily. 08/14/19 11 Active aspirin 81 MG EC tablet Take 81 mg by mouth daily. Active rosuvastatin (CRESTOR) 20 MG tabletIndicati ons:Atheroscle rosis of [place] coronary artery of [place] heart without angina pectoris TAKE 1 TABLET BY MOUTH EVERY DAY 90 tablet 3 10/18/19 20 Active ezetimibe (ZETIA) 10 mg tabletIndicati ons:Prescripti on refill TAKE 1 TABLET BY MOUTH EVERY DAY 90 tablet 3 12/05/19 20 Active sildenafiL (VIAGRA) 50 mg tablet 10/24/19 22 Active halobetasol (ULTRAVATE) 0.05 % cream halobetasol propionate 0.05 % topical cream PLEASE SEE ATTACHED FOR DETAILED DIRECTIONS Active albuterol (PROAIR HFA) 90 mcg/actuation inhaler Inhale 2 puffs into the lungs every 4 (four) hours as needed for wheezing. 18 g 10/25/19 22 Active [facility] Spcr 1 EACH BY SEE ADMINISTRATION INSTRUCTIONS ROUTE ONCE FOR 1 DOSE. USE WITH INHALER 10/25/19 Active tadalafiL (CIALIS) 5 MG tablet Take 5 mg by mouth daily as needed for erectile dysfunction. Active candesartan (ATACAND) 16 MG tablet Take 24 mg by mouth. 01/25/20 22 Active rosuvastatin (CRESTOR) 10 MG tablet TAKE 1 TABLET BY MOUTH EVERY DAY TO BE TAKEN WITH 10 MG TAB, TOTAL 30MG/DAY Active nitroglycerin (NITROSTAT) 0.4 MG SL tablet PLEASE SEE ATTACHED FOR DETAILED DIRECTIONS 01/05/20 23 Active albuterol (PROAIR HFA) 90 mcg/actuation inhaler Inhale 2 puffs into the lungs every 4 (four) hours as needed for wheezing. 18 g 03/01/19 25 Active inhaler spacing device (AEROCHAMBER,B REATHERITE) Spcr Inhale 1 each into the lungs every 4 (four) hours as needed. 1 each 03/01/19 25 Active amLODIPine (NORVASC) 2.5 MG tablet Take 1 tablet by mouth every morning. 12/26/19 Active candesartan (ATACAND) 8 MG tablet Take 16 mg by mouth daily. 08/24/19 025 Discontin ued(Dupli heide order) celecoxib (CELEBREX) 200 MG capsule TAKE 1 TABLET BY MOUTH DAILY NEEDED FOR PAIN. TAKE WITH FOOD 025 Discontin ued(No longer taking) benzonatate (TESSALON) 100 MG capsule Take 2 capsules (200 mg total) by mouth 3 (three) times a day as needed for cough. 21 capsule 03/01/19 25 025 Discontin ued(No longer taking) Active Problems Problem Noted Date Diagnosed Date Hypertensive disorder 12/21/2022 Cardiac arrest due to underlying cardiac conditi on 12/29/2021 Diastasis of rectus abdominis 12/29/2021 Dysphagia 12/29/2021 Second degree atrioventricular block 12/29/2021 COVID-19 08/23/2021 Primary erectile dysfunction 08/11/2021 Bradycardia 06/20/2019 PVC's (premature ventricular contractions) 06/19 PAC (premature atrial contraction) 06/20/2019 Atherosclerosis of [place] co ronary artery of [place] heart without angina pectoris 10/25/2018 Displacement of cervical intervertebral disc 10/[address] segment elevation myocardial infarction 03/05/2018 Environmental allergies 03/05/2018 Hypercholesterolemia 03/05/2018 Gastroesophageal reflux disease 03/05/2018 Impaired fasting glucose 03/05/2018 Mobitz type I incomplete atrioventricular block 03/05/2018 Sinus bradycardia 03/05/2018 Status post dilation of esophageal narrowing 08/2018 Encounters Date Type Department Care Team Description 01/16/2025 8:37 AM EST Hospital Encounter [facility] [address] [place] [address] Daphne Spangler CNP 01/16/2025 8:10 AM EST Office Visit [facility] at [address] [address] Marnie Michael, Daphne Castro CNP Acute cough (Primary Dx); Other fatigue; Sinus congestion from Last 3 Months Immunizations Immunization Administration Dates Next Due COVID-19 (Pre-12/19) Moderna Vaccine, mRNA, PF 0 05/18/2020,04/20/2020 INFLUENZA, SPLIT VIRUS, TRIVALENT PF 11/02/2016 INFLUENZA, SPLIT VIRUS, TRIVALENT W/ PRESERVATIV E IM 03/18/2016 Influenza Quadrivalent Adjuvanted Preservative F ree IM 01/12/2021 Influenza Quadrivalent MDCK Preservative Free IM 12/20/2018,12/09/2017 Influenza Quadrivalent Preservative Free IM 10/29,02/12/2010 Influenza Quadrivalent w/ Preservative IM 2018 Pneumococcal polysaccharide PPSV23 03/25/2016 Tdap 09/07/2021 Zoster live 11/02/2016 Zoster recombinant 08/12/2019,03/05/2019 Social History Tobacco Use Types Packs/Day Years Used Date Smoking Tobacco: Former Cigarettes Smokeless Tobacco: Never Tobacco Cessation:Counseling Given: Not Answered Alcohol Use Standard Drinks/Week Comments Yes 0 [...] on file Sexual Orientation Not on file Last Filed Vital Signs Vital Sign Reading [...] Mass Index 28.48 01/16/2025 8:23 AM EST Plan of Treatment Health Maintenance Due Date Last Done Comments DEPRESSION SCREENING 1966 SMOKING Hx and SMOKELESS TOBACCO SCREENING 06/07/1967 HEPATITIS C SCREENING 1972 COLOGUARD 06/07/1999 FIT TEST 06/07/1999 FOBT 06/07/1999 SIGMOIDOSCOPY 06/07/1999 VIRTUAL COLONOSCOPY 06/07/1999 CREATININE LEVEL 03/10/2022 03/10/2021 POTASSIUM LEVEL 03/10/2022 03/10/2021 COVID-19 VACCINE ( season) 2024 02/22/2021, 05/18/2020, 04/20/2020 BLOOD PRESSURE 07/16/2025 01/16/2025 COLONOSCOPY 04/29/2026 07/02/2024 COLORECTAL CANCER SCREENING 04/29/2026 RSV VACCINE (1 - 1-dose 75+ series) 2029 Adult Td,Tdap Booster 09/08/2031 09/07/2021 ZOSTER VACCINES Completed 08/12/2019, 08/2019, 11/02/2016 ABDOMINAL AORTIC ANEURYSM (AAA) SCREENING Completed 07/29/2020 PNEUMOCOCCAL VACCINES (50+ years) Completed 12/15/2021, 03/25/2016 INFLUENZA VACCINE Completed 11/19/2024, , 11/02/2022, Additional history exists HEPATITIS A VACCINES Aged Out No long er eligible based on patient's age to complete this topic HIB VACCINES Aged Out No longer eligi ble based on patient's age to complete this topic MENINGOCOCCAL VACCINES (ACWY) Aged Out No longer eligible based on patient's age to complete this topic MENINGOCOCCAL VACCINES (B) Aged Out N o longer eligible based on patient's age to complete this topic Medical Devices Not on file Procedures Procedure Name Priority Date/Time Associated Diagnosis Comments XR CHEST PA AND LATERAL 2 VIEWS Urgent/patient waiting 01/16/2025 8:41 AM EST Acute cough POCT SARS-COV-2, INFLUENZA A/B, RSV, PCR Routine 01/16/2025 8:27 AM EST COLONOSCOPY FOR RESULT ENTRY ONLY Routine 07/02/2024 BASIC METABOLIC PANEL (BMP) Routine 03/10/2021 10:37 AM EST Hypertension, unspecified type US ABDOMINAL AORTIC SCREENING Routine 07/29/2020 9:21 AM EDT Abdominal aortic aneurysm without rupture from Last 3 Months or Most Recently Relevant to Health Maintenance Results * XR CHEST PA AND LATERAL 2 VIEWS (01/16/2025 8:41 AM EST) Anatomical Region Laterality Modality Chest Computed Radiogr aphy 01/16/2025 8:47 AM EST Impressions 01/16/2025 9:18 AM EST No acute abnormality. ATTESTATION: Alejandrina Arguello as teaching physician, have reviewed the images for this case and if necessary edited the report originally created by Francisco Noguera. Narrative 01/16/2025 9:18 AM EST XR CHEST PA AND LATERAL 2 VIEWS Referring clinician's provided indication for this examination in Psychiatric: Cough COMPARISON: XR CHEST PA AND LATERAL [...] clinician's provided indication for this examination in Psychiatric:Cough COMPARISON: XR CHEST PA AND LATERAL 2 VIEWS FINDINGS: Devices/Tubes/Lines: None. Lungs: No focal consolidation or pulmonary edema. Rounded subcentimeterstructure projecting over the left lower lung is likely a nipple shadow. Pleura: No pleural effusion or pneumothorax. Heart/Mediastinum: Normal heart size and mediastinal contours. Bones/Soft Tissues: Degenerative changes of the thoracic spine. IMPRESSION: No acute abnormality. ATTESTATION: Alejandrina Arguello as teaching physician, have reviewed theimages for this case and if necessary edited the report originally createdby Francisco Noguera. Daphne Spangler TEASEL GIG OPERATOR IMG XR CHEST Final Resul t * POCT SARS-CoV-2, Influenza A/B, RSV, PCR (01/16/2025 8:27 AM EST) SARS-Cov-2 PCR Negative Negative 01/16/2025 9:08 AM EST [facility] Influenza A Negative Negative 01/16/2025 9:08 AM EST [facility] Influenza B Negative Negative 01/16/2025 9:08 AM EST [facility] RSV PCR Negative Negative 01/16/2025 9:08 AM EST [facility] Swab (Anterior Nares) 01/16/2025 8:27 AM EST 01/16/2025 9:08 AM EST us Marnie Michael TEASEL GIG OPERATOR LAB POCT DOCKED DEVICE UNSOLICTED RESULTS Final Result [facility] [address] [address], [facility] [phone] * COLONOSCOPY FOR RESULT ENTRY ONLY (07/02/2024) HM Colonoscopy External us Historical Provider MD HEALTH MAINTENANCE Final Result * Basic metabolic panel (03/10/2021 10:37 AM EST) SODIUM 140 133 - 146 mmol/L [facility] CHLORIDE 100 96 - 108 mmol/L [facility] POTASSIUM 4.2 3.3 - 5.1 mmol/L [facility] Comment:Specimen slightly he molyzed, result may be falsely elevated. CO2 29 21 - 35 mmol/L [facility] BUN 17 6 - 19 mg/dL [facility] CREATININE 0.80 0.5 - 1.5 mg/dL [facility] GLUCOSE 76 70 - 99 mg/dL [facility] CALCIUM 9.7 8.4 - 10.3 mg/dL [facility] EGFR 98 >59 mL/min/1.7 3m2 [facility] Comment:Estimated glomerular filtration rate calculated using the CKD-EPI refit equation. ANION GAP 15 10 - 20 mmol/L [facility] Blood 03/10/2021 10:3 7 AM EST 03/10/2021 10:40 AM EST us Marko Breaux MD LAB BLOOD BKR ORDERABLES Final R esult [facility] [address] [place] [address] * US Abdominal Aortic Screening (07/29/2020 9:21 AM EDT) Anatomical Region Laterality Modality Abdomen Ultrasound 07/29/2020 9:24 AM EDT Impressions 07/29/2020 9:24 AM EDT No AAA. Narrative 07/29/2020 9:24 AM EDT COMPARISON: CT abdomen pelvis 06/24/2015. ABDOMINAL AORTA ULTRASOUND FINDINGS: No evidence of an abdominal aortic aneurysm. The proximal common iliac arteries are nonaneurysmal. No significant plaque identified. Procedure Note Adama Muro MD - 07/29/2020 COMPARISON: CT abdomen pelvis 06/24/2015. ABDOMINAL AORTA ULTRASOUND FINDINGS: No evidence of an abdominal aortic aneurysm. The proximal common iliacarteries are nonaneurysmal. No significant plaque identified. IMPRESSION: No AAA. us Nguyễn A Bigda DO IMG US ABDOMEN Final Result from Last 3 Months or Most Recently Relevant to Health Maintenance Additional Health Concerns Infection Onset Date Last Indicated Resp-Risk 01/16/2025 01/16/2025 Insurance [employer] [facility] EXTENSION MEDICARE SUPPLEMENT MEDICARE PART A & B [facility] EXTENSION MEDICARE SUPPLEMENT MEDICARE PART A & B [employer] [facility] EXTENSION MEDICARE SUPPLEMENT MEDICARE PART A & [facility] EXTENSION MEDICARE SUPPLEMENT MEDICARE PART A & B [employer] MEDICARE SUPPLEMENT MEDICARE PART A & B [employer]ION MEDICARE SUPPLEMENT MEDICARE PART A & B [facility] MEDICARE SUPPLEMENT MEDICARE PART A & B Member Subscriber Plan / Payer (Ef fective 2019-Present) Name:Rick Carney Member ID:[id number] Relation to Subscriber:Self Name:Angelika Rick Subscriber ID:[id number] Payer ID:[id number] Group ID:Not on file Type:Medicare Address: [employer] SAR[employer] [id number] [employer] [facility] MEDICARE SUPPLEMENT MEDICARE PART A & B Member Subscriber Plan / Payer (Ef fective 2019-Present) Name:Rick Carney Member ID:[id number] Relation to Subscriber:Self Name:Rick Carney Subscriber ID:[id number] Payer ID:[id number] Group ID:Not on file Type:Medicare Address: [employer] [address] [place] [id number] [employer] [facility] SU[facility] MEDICARE PART A & B Care Teams Wild Life Photographer Relationship Specialty Start Date End Date Nguyễn Vance DO [address] [place] [address] [place] [address] PCP - General Internal Medicine 01/16/25 Nguyễn Vance DO [email or web address] Historical LMR Provider 12/13/16 Marko Breaux MD [email or web address] Historical LMR Provider 12/13/16 Additional Source Comments The information contained in this document represents components of the legal health record. It is not the complete legal health record.[facility]
--- OUTSIDE RECORDS SUMMARY | 2025-01-22 07:35 | XMS_ITS | Patient Health Record ---
Author Organization [facility] Address [address] [place] [phone] Care Team Providers Care Hand Edger Name Role Phone Reji David Jr Reason For Referral No Information Plan Of Treatment No Information
--- OUTSIDE RECORDS SUMMARY | 2025-01-22 07:35 | XMS_ITS | Data Portability ---
Author Organization [facility], Telehealth Patient Home Address [address] [place] [address] Assessment Encounter Date Assessment Date Assessment LastModified by Organization Details LastModified Time 04/10/2023 04/10/2023 Patient agreed and verbally consents to this audio and video Telehealth appt via a secure platform [email or web address] Not available 04/10/2023 15:23:55 04/11/2023 04/11/2023 Patient agreed and verbally consents to this audio and video Telehealth appt via a secure platform [email or web address] Not available 04/11/2023 14:21:38 12/27/2023 12/27/2023 Patient presente d to office today for their Medicare Annual Wellness Visit. Education was provided on healthy nutrition, including a diet rich in fruits and vegetables, minimizing simple carbohydrates, salt, and saturated fats. Encouraged regular cardiovascular exercise such as walking at least 30 minutes daily, 5 times per week. Emphasized preventive health measures and educated pt on fall prevention and community-based lifestyle interventions to help reduce health risks and promote healthy living. [email or web address] Not available 12/15/2023 12:19:05 01/21/2025 01/21/2025 Patient presente d to office today for their Medicare Annual Wellness Visit. Education was provided on healthy nutrition, including a diet rich in fruits and vegetables, minimizing simple carbohydrates, salt, and saturated fats. Encouraged regular cardiovascular exercise such as walking at least 30 minutes daily, 5 times per week. Emphasized preventive health measures and educated pt on fall prevention and community-based lifestyle interventions to help reduce health risks and promote healthy living. Not available 11/22/2024 11:55:20 Plan of Treatment Reminders Order Date Submit Date Provider Last Modified By Organization Details Last Modified Time Details Appointments MEDICARE ANNUAL WELLNESS 2025 10:30A M DR CAUSEY Not available Not available Not available Lab CMP, serum or plasma 2024 [facility], [address] [place] [address], [id number], 01/21/2025 09:30:43 PSA, serum or plasma 2024 [facility], [address] [place] [address], [id number], 01/21/2025 09:30:42 CBC w/ auto diff 2024 [facility], [address] [place] [address], [id number], 01/21/2025 09:30:43 hemoglobi n, gastroint estinal, stool 2024 [facility], [address] [place] [address], [id number], 01/21/2025 09:30:43 lipid panel, blood 2024 [facility], [address] [place] [address], [id number], 01/21/2025 09:30:43 lipid panel, blood 2023 024 [facility], [address] [place] [address], [id number], 01/01/2024 11:48:26 hemoglobi n, gastroint estinal, stool 2023 024 [facility], [address] [place] [address], [id number], 12/27/2023 14:48:36 CBC w/ auto diff 2023 024 [facility], [address] [place] [address], [id number], 01/01/2024 11:48:27 CMP, serum or plasma 2023 [facility], [address] [place] [address], [id number], 01/01/2024 11:48:26 culture, blood 2023 [facility], [address] [place] [address], [id number], 04/13/2023 12:34:00 lyme disease igg+igm, serum, reflex western blot 2023 [facility], [address] [place] [address], [id number], 04/10/2023 15:25:09 rickettsi al antibody panel, serum 2023 [facility], [address] [place] [address], [id number], 04/10/2023 15:25:09 ehrlichia Ab, serum 2023 [facility], [address] [place] [address], [id number], 04/14/2023 11:16:06 anaplasma phagocyto philum + ehrlichia chaffeens is IgG + IgM panel, serum 2023 [facility], [address] [place] [address], [id number], 04/20/2023 15:21:44 dengue fever Ab, serum 2023 [facility], [address] [place] [address], [id number], 04/21/2023 11:35:59 chikungun ya virus Ab IgM + IgG panel, serum 2023 024 [facility], [address] [place] [address], [id number], 04/10/2023 15:25:09 malaria, igg Ab, serum 2023 [facility], [address] [place] [address], [id number], 04/10/2023 15:25:09 CBC w/ auto diff 2023 [facility], [address] [place] [address], 57373, 04/11/2023 11:19:11 C-reactiv e protein, quantitat benja, serum or plasma 2023 [facility], [address] [place] [address], 61561, 04/10/2023 15:25:08 erythrocy te sedimenta tion rate by westergre n method 2023 [facility], [address] [place] [address], 39978, 04/10/2023 15:25:09 culture, urine 2023 [facility], [address] [place] [address], 16573, 04/13/2023 11:46:27 zika virus Ab, IgG, QN, serum 2023 [facility], [address] [place] [address], 78664, 04/10/2023 15:25:08 Referral physical therapist referral 2023 [facility], [address] [place], [place] [address]kiana Fernández, ENRIKE Vaughan, [address], 01/03/2024 09:06:15 Procedures None recorded. Surgeries None recorded. Imaging XR, chest, 2 view 2023 024 [email or web address] Not available 04/12/2023 11:58:54 US, echocardi ogram - fever of unknown origin, hx of myocardit is, elevated BP and tachycard ia 2023 024 [facility], [address] [place], [address], 04/12/2023 16:22:23 Medication Orders azithromy cayla 250 mg tablet 2024 025 [facility]acy #2024, [address] [place], [address], 01/21/2025 09:27:24 ciproflox acin 500 mg tablet 2023 024 [facility]2024, [address] [place], [address], 12/27/2023 14:36:59 Patient TargetsNo targets recorded. Patient Instructions Encounter Date Encounter Id Patient Instructions Last Modified By Organization Details Last Modified Time 12/27/2023 [id number] cervical disc disease: care instructions Not available 12/27/2023 15:05:51 advance care planning: care instructions Not available 12/27/2023 14:47:09 Discussed and explained advance directives such as standard forms to the patient. Face to face discussion lasted for a duration of 13___ minutes. Not available 12/27/2023 14:47:00 01/21/2025 [id number] advance care planning: care instructions Not available 01/21/2025 09:27:21 cough: care instructions Not available 01/21/2025 09:27:21 Discussed and explained advance directives such as standard forms to the . Face to face discussion lasted for a duration of ___ minutes. Not available 11/22/2024 11:55:20 Reason for Referral Physical Therapist Referral for Displacement of cervical intervertebral disc without myelopathy Referring Physician: Nguyễn Causey, Internal Medicine, Encounter Date: 12/27/2023 Results Created Date Observation Date Name Description Value Unit Range Abnormal Flag Note LastModifiedBy Organization Detail LastModifiedTime 04/11/19 24 04/11/2023 XR, chest , 2 view No observ ation record ed. [address], [address], 12/27/2023 14:46:00 04/18/19 24 04/18/2023 , echoc ardio gram No observ ation record ed. [facility] (Medical Records) [address] [place], [address], 12/27/2023 14:46:00 05/09/19 24 05/09/2023 XR, chest , 2 view No observ ation record ed. [address], [address], 12/27/2023 14:46:00 01/17/20 25 01/16/2025 XR, chest , 2 view No observ ation record ed. [facility] [address], [address], 01/16/2025 10:48:26 Result Notes None recorded. Problems Name Problem SNOMED Code Status Onset Date Resolution Date Notes Provider Name and Address Organization Details Recorded Time Hyperchole sterolemia 87714329 Active 2018 Not Available [facility] 3 11:37:41 Gastroesop hageal reflux disease 247836779 Active 2018 Not Available [facility] 3 11:37:41 Environmen shi allergy 656925253 Active 2018 Not Available [facility] 3 11:37:41 Dilation of esophageal stricture Active 2018 Not Available [facility] 3 11:37:41 Impaired fasting glycemia 406170221 Active 2018 Not Available [facility] 3 11:37:41 Coronary arterioscl erosis 95735251 Active 2018 Not Available [facility] 3 11:37:[address] segment elevation myocardial infarction 704827034 Active 2018 Not Available [facility] 3 11:37:41 Sinus bradycardi a 38345907 Active 2018 Not Available [facility] 3 11:37:41 Mobitz type I incomplete atrioventr icular block 58710768 Active 2018 Not Available [facility] 3 11:37:41 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 43591566 Active 2018 Not Available [facility] 3 11:37:41 Primary erectile dysfunctio n 710420504 Active 2021 Not Available [facility] 3 11:37:41 COVID-19 628237616 Active 2021 Not Available [facility] 3 11:37:41 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 492433388 Active 2022 Not Available [facility] 3 11:37:41 Candidiasi s of skin 60613432 Active 2022 Not Available [facility] 3 11:37:41 Pain in throat 716029624 Active 2022 Not Available [facility] 3 11:37:41 Hypertensi ve disorder 72663179 Active 2022 Nguyễn Causey DO [address] [place], [address], [facility] 3 14:59:44 Insect bite reaction 953653504 Active 2023 REVA SMITH [address] [place], [address], [facility] 4 15:19:15 Pyrexia of unknown origin 6711978 Active 2023 REVA SMITH [address] [place], [address], [facility] 4 15:21:25 Pneumonia 179627494 Active 2023 REVA SMITH [address] [place], [address], [facility] 4 16:37:29 Cough 35384665 Active 2024 Nguyễn Causey, [address] [place] [address], [address], [facility] 5 11:57:30 Erectile dysfunctio n 876234270 Active 2024 Nguyễn Causey, DO [address] [place] [address], [address], [facility] 5 16:03:59 Problem Notes None recorded. Procedures Surgical History Date Name Laterality Status Provider Name and Address Organization Details Recorded Time 04/30/19 22 Colonoscopy completed Nguyễn Causey, [address] [place] [address], [address], [facility] 04/29/2021 16:02:19 Imaging Results None recorded. Procedure Notes None recorded. Medical Equipment None Reported. Allergies Allergen ID Allergen Name Allergen Category Reaction Reaction Severity Criticality Documentation Date Start Date Code Code System Note Provider Name and Address Organization Details Recorded Time 29667 melon extract food Not available Not available [facility] 01/21/20252021 67108 10 RxNorm Not Available [employer] - prod 03:46:19 68995 walnut allergeni c extract food Not available Not available [facility] 01/21/20252021 66530 0 RxNorm Not Available [employer] - prod 03:46:19 No known drug allergies Medications Name Sig Start Date Stop Date Status Note LastModified by Organization Details LastModified Time celecoxib 200 mg capsule TAKE 1 TABLET BY MOUTH DAILY NEEDED FOR PAIN. TAKE WITH FOOD active Not Available Not Available No t Available amoxicillin 500 mg capsule 07/07 completed Not Available Not Available Not Available prednisone 10 mg tablet TAKE 5 TABS X 2 DAYS, THEN 4 TABS X 2 DAYS, 3 TABS X 2 DAYS, 2 TABS X 2 DAYS, THEN 1 TAB X 2 DAYS 11/25 /2025 completed Not Available Not Available Not Available sildenafil 50 mg tablet TAKE 1 TABLET BY MOUTH EVERY DAY FOR 30 DAYS 12/21 completed Not Available Not Available Not Available azithromyci n 250 mg tablet TAKE 2 TABLETS (500 MG) BY ORAL ROUTE ONCE DAILY FOR 1 DAY THEN 1 TABLET (250 MG) BY ORAL ROUTE ONCE DAILY FOR 4 DAYS 2024 active Not Available Not Available Not Avai lable fluconazole 150 mg tablet TAKE 1 TABLET BY MOUTH EVERY DAY FOR 3 DAYS 12/21 completed Not Available Not Available Not Available Levaquin 750 mg tablet Take 1 tablet every day by oral route for 5 days. 07/07 completed Not Available Not Available Not Available prednisone 20 mg tablet TAKE 3 TABLETS BY MOUTH EVERY DAY FOR 5 DAYS 12/21 completed Not Available Not Available Not Available amlodipine 2.5 mg tablet TAKE 1 TABLET BY MOUTH EVERY DAY active Not Available Not Available No t Available ciprofloxac in 500 mg tablet TAKE 1 TABLET EVERY 12 HOURS BY ORAL ROUTE FOR 10 DAYS, FOR FEVER OF UNKNOWN ORIGIN. 12/26 completed Not Available Not Available Not Available aspirin 81 mg tablet,asuncion yed release Take 1 tablet every day by oral route. 03/06 completed Not Available Not Available Not Available triamcinolo ne acetonide 0.1 % topical cream 07/07 completed Not Available Not Available Not Available econazole nitrate 1 % topical cream APPLY TWICE DAILY TO AFFECTED AREAS NEEDED active Not Available Not Available No t Available oseltamivir 75 mg capsule 03/06 completed Not Available Not Available Not Available candesartan 16 mg tablet TAKE 2 TABLET BY MOUTH EVERY DAY active Not Available Not Available No t Available hydrochloro thiazide 12.5 mg capsule TAKE 1 CAPSULE BY MOUTH ONCE A DAY IN THE MORNING 12/21 completed Not Available Not Available Not Available nitroglycer in 0.4 mg sublingual tablet PLEASE SEE ATTACHED FOR DETAILED DIRECTION S active Not Available Not Available No t Available omeprazole 20 mg capsule,del ayed release TAKE 1 CAPSULE BY MOUTH EVERY DAY active Not Available Not Available No t Available halobetasol propionate 0.05 % topical cream APPLY 1-2 TIMES ADAY TO AFFECTED AREAS OF ECZEMA FOR 1-2WKS AT ATIME. DO NOT USE ON FACE, SKIN FOLDS active Not Available Not Available No t Available methylpredn isolone 4 mg tablets in a dose pack use as directed. 12/21 completed Not Available Not Available Not Available albuterol sulfate HFA 90 mcg/actuati on aerosol inhaler INHALE 2 PUFFS INTO THE LUNGS EVERY 4 HOURS NEEDED FOR WHEEZE active Not Available Not Available No t Available ketoconazol e 2 % topical cream 07/07 completed Not Available Not Available Not Available hydroxyzine HCl 10 mg tablet PLEASE SEE ATTACHED FOR DETAILED DIRECTION S 07/07 completed Not Available Not Available Not Available fluticasone propionate 50 mcg/actuati on nasal spray,suspe nsion SPRAY 2 SPRAYS INTO EACH NOSTRIL EVERY DAY active Not Available Not Available No t Available candesartan 8 mg tablet TAKE 1 TABLET BY MOUTH EVERY DAY 01/21 completed Not Available Not Available Not Available amoxicillin 875 mg-potassiu m clavulanate 125 mg tablet TAKE 1 TABLET BY MOUTH 2 (TWO) TIMES A DAY FOR 7 DAYS. TAKE W FOOD, YOGURT, PROBIOTIC S. FINISH ALL. 01/21 completed Not Available Not Available Not Available Asprin Ec Low Dose 81 mg tablet,asuncion yed release Take 1 tablet every day by oral route. active Not Available Not Available No t Available ezetimibe 10 mg tablet TAKE 1 TABLET BY MOUTH EVERY DAY active Not Available Not Available No t Available rosuvastati n 10 mg tablet TAKE 1 TABLET BY MOUTH EVERY DAY. TAKE WITH 20 MG TAB TO MAKE 30 MG DAILY active Not Available Not Available No t Available rosuvastati n 20 mg tablet TAKE 1 TABLET BY MOUTH EVERY DAY TO BE TAKEN WITH 10MG DAILY. TOTAL DOSE 30MG DAILY. active Not Available Not Available No t Available rosuvastati n 40 mg tablet Take 1 tablet every day by oral route for 6 days. 07/07 completed Not Available Not Available Not Available tadalafil 5 mg tablet Take 1 tablet every day by oral route for 90 days. 2024 active Not Available Not Available Not Avai lable chlorhexidi ne gluconate 0.12 % mouthwash 07/07 completed Not Available Not Available Not Available diclofenac 1 % topical gel APPLY 1-2 GRAMS TO PAINFUL AREA 3-4 TIMES A DAY NEEDED active Not Available Not Available No t Available GaviLyte-N 420 gram oral solution 03/06 completed Not Available Not Available Not Available Soniya Kearns [facility] spacer INHALE 1 EACH INTO THE LUNGS EVERY 4 HOURS NEEDED. active Not Available Not Available No t Available Shingrix (PF) 50 mcg/0.5 mL intramuscul ar suspension, kit 07/07 completed Not Available Not Available Not Available Flucelvax Quad (PF) 60 mcg (15 mcg x 4)/0.5 mL IM syringe 09/04 completed Not Available Not Available Not Available Flucelvax Quad (PF) 60 mcg (15 mcg x 4)/0.5 mL IM syringe 01/23 completed Not Available Not Available Not Available Flowflex COVID-19 Antigen Home Test kit USE DIRECTED 12/21 completed Not Available Not Available Not Available Vitals Date Recorded Body height Body mass index (BMI) Body weight Heart rate Oxygen saturation Systolic And Diastolic Provider Name and Address Organization Details Last Updated DateTime 4 184.15 cm 29.2 kg/m2 27863.1 4 g 46 /min 98 % 124/70 mm[Hg] Xiang Amado [facility] 4 14:39:08 Date Recorded Body weight Body mass index (BMI) Body height Heart rate Oxygen saturation Systolic And Diastolic Provider Name and Address Organization Details Last Updated DateTime 5 51103.8 6 g 29.6 kg/m2 182.88 cm 66 /min 95 % 142/66 mm[Hg] Keke Davis [facility] 5 09:03:20 Social History Question Answer Notes LastModified by Organizat ion Details LastModified Time Tobacco Smoking Status Former Smoker Not Available [facility] 12/31/2019 03:36:24 What Was The Date Of Your Most Recent Tobacco Screening? 01/21/2025 [email or web address] Information not available 01/21/2025 Sex: Unknown Functional Status Question Answer Note LastModified by Organization D etails LastModified Time Do you or have you ever used any other forms of tobacco or nicotine? No Information not available 08/04/2021 Mental Status None recorded. Family History Nothing Reported. Medical History No medical history recorded. Immunizations Vaccine Type Date Status Note Provider Nam e and Address Organization Details Recorded Time Influenza, split virus, quadrivalent, preservative 01/13/20 21 completed Not Available [facility] 04/04/2022 07:25:49 COVID-19, mRNA, LNP-S, PF, 100 mcg/0.5mL dose or 50 mcg/0.25mL dose 02/23/20 21 completed Not Available [facility] 04/04/2022 07:25:50 Tdap 09/08/19 22 completed Not Available [facility] 04/04/2022 07:25:50 influenza, unspecified formulation 11/03/19 23 completed Nguyễn Causey DO [address] [place] [address], [address], [facility] 11/03/2022 16:30:46 influenza, unspecified formulation 11/13/19 25 completed Nguyễn Causey DO [address] [place] [address], [address], [facility] 01/21/2025 09:20:41 Influenza, split virus, quadrivalent, preservative 03/06/19 19 completed Not Available [facility] 04/04/2022 07:25:49 zoster, unspecified formulation 03/05/19 20 completed Not Available [facility] 04/04/2022 07:25:49 COVID-19, mRNA, LNP-S, PF, 100 mcg/0.5mL dose or 50 mcg/0.25mL dose 05/19/19 21 completed Not Available [facility] 04/04/2022 07:25:50 COVID-19, mRNA, LNP-S, PF, 100 mcg/0.5mL dose or 50 mcg/0.25mL dose 04/20/19 21 completed Not Available [facility] 04/04/2022 07:25:50 zoster, unspecified formulation 08/12/19 20 completed Not Available [facility] 04/04/2022 07:25:50 pneumococcal polysaccharide PPV23 03/18/19 17 completed Not Available [facility] 04/04/2022 07:25:50 Past Encounters Encounter ID Performer Location Encounter Start Date Encounter Closed Date Diagnosis/Indication Diagnosis SNOMED-CT Code Diagnosis ICD10 Code Diagnosis IMO Codes Diagnosis Note [id number] Nguyễn Causey DO [facility] [address] [facility],[place] [address] 03/06/2018 11:24:19 03/06/2018 11:54:34 Coronary arteriosclerosis 35099624 I25.10 asymptomat ic and has no evid of activity after workup at [facility] Dizziness 604959394 R42 currently is asymptomat ic Degenerati on of cervical intervertebral disc 81843521 M50.30 will need to refer to a neurologis t in [facility] [place] pt request [id number] Nguyễn Causey DO [facility] [address] [facility],[place] [address] [address] 09/04/2018 10:25:38 09/04/2018 12:10:37 Adult health examination 102014117 Z00.00 Active or passive immunization 842796149 Z23 [id number] Nguyễn Causey DO [facility] [address] [facility],[place] [employer] [place] [address] 01/23/2019 09:48:43 01/23/2019 10:26:05 Asthmatic bronchitis 643280600 J45.909 Ongoing 3 weeks, productive cough, expiratory wheeze [id number] Nguyễn Causey DO [facility] [address] [facility],[place] [employer] [place] [address] 02/06/2019 13:58:03 02/06/2019 15:17:25 Cough 00229840 R05 ? pna vs PRAD repeat steroid FQ abx Active or passive immunization 913296616 Z23 Gastroesop hageal reflux disease 087438914 K21.9 continue omeprazole [id number] Nguyễn Causey [facility] [address] [facility],[place] [employer] [place] [address] 07/07/2020 08:52:39 07/07/2020 10:06:40 Active or passive immunization 289207222 Z23 utd Adult heal th examination 637851088 Z00.00 doing well Abdominal aortic aneurysm 452955171 I71.4 will order Displaceme nt of cervical intervertebral disc without myelopathy 20913993 M50.20 [id number] Nguyễn Causey DO [facility] [address] [facility],[place] [address] 08/04/2021 13:36:26 08/04/2021 15:36:47 Abdominal aortic aneurysm 163962954 I71.4 will order Active or passive immunization 478776016 Z23 patient advised he is due for tdap & pneu 13 Adult heal th examination 068063746 Z00.00 doing well Advance care planning 71 6520958 Z71.89 done [id number] Nguyễn Causey [facility] [address] [facility] [address],[place] [address] 12/21/2022 14:26:32 12/21/2022 16:24:46 Adult health examination 917175837 Z00.01 doing well Screening for cardiovascular system disease 685462028 Z13.6 Screening for malignant neoplasm of colon 452891130 Z12.11 Hypercholesterolemia 136 66958 E78.00 will have him get lab [id number] Nguyễn Causey [facility] [address] [facility],[place] [address] 04/10/2023 11:05:43 04/11/2023 10:11:05 [id number] Nguyễn Causey [facility] [address] [facility],[place] [address] 04/10/2023 13:28:59 04/10/2023 15:40:10 Insect bite reaction 209344646 T63.481A will set up with lab testing given bite by insect and symptoms, and area of concern that he was in when he got the bite Exposure t o Zika virus 6312996703 4858108 Z20.821 will set up with evaluation Pyrexia of unknown origin 4887540 R50.81 will set up with lab work and screening [id number] Nguyễn Causey [facility] [address] [facility] [address],[place] [address] 04/11/2023 14:20:21 04/12/2023 11:58:54 Pyrexia of unknown origin 4254184 R50.81 will set up with lab work and screening History of myocarditis 8046630703 80922 Z86.79 will fu with US echowould like CXR first, pt awarewill fu tomorrow [id number] Nguyễn Causey [facility] [address] [facility], [place] [address] 12/27/2023 14:30:32 12/27/2023 15:23:34 Adult health examination 529134698 Z00.00 doing well Screening for cardiovascular system disease 691845178 Z13.6 Screening for malignant neoplasm of colon 914339445 Z12.11 stable Depression screening 171 303266 Z13.31 neg Displaceme nt of cervical intervertebral disc without myelopathy [id number] M50.20 needs PT [id number] DO [facility] [address] [facility],[place] [address] 01/21/2025 08:57:23 01/21/2025 09:33:57 Screening for cardiovascular system disease [id number] Z13.6 needs lab Screening for malignant neoplasm of colon [id number] Z12.11 stable Depression screening 171 [id number] Z13.31 neg Hypertensive disorder 38 [id number] I10 just started on amlodipine 2.5 but doesnt have appt til may Coronary arteriosclerosis [id number] I25.10 asymptomat ic and has no evid of activity after workup at [facility] Cough [id number] R05.9 ongoing for 4 weeks needs tx General ex amination of patient [id number] Z00.01 [id number] doing well Health Concerns Section Related Observation LastModified by Organization Detai ls LastModified Time None Recorded Concern Status LastModified by Organization Details LastModified Time None Recorded Advance Directives Directive None Recorded Payers Insurance Date Sequence Insurance Name Policy Number Policy Finnegan Covered Member ID Finnegan Member ID Guarantor Name 01/21/2025 1 [place] [employer] Rick Carney [id number] Rick Carney 01/18/2025 2 [facility] (INDEMNITY) [id number] Sonia Carney [id number] Rick Carney Notes Date Note Type Note Provider Name and Address Organization Details Recorded Time 4 text/htm l ROS as noted in the HPI c/o sudden fever and chills The patient is participating in this appointment via telemedicine communication with a phone call/video calling service (Doxy)The patient consents to use of these platforms in place of an in-person appointment due to either sick symptoms the patient is presenting with or current office closure due to COVID exposure in order to keep our office staff and patients safe Traveled 2 weeks ago to [facility]. Covid while was there with complete recovery. Yesterday felt cold and severe shaking began, had difficulty controllingFever broke during the night with Tylenol. Today joint pain especially in left shoulder and torso.have some difficulty getting out of a recliner.continue to feel cold and have frequent shaking chills without fever. have experienced severe bloating after eating recently especially with carbs very high concern for an infection from the bug bite since that's when the symptoms startedbig concern for zika, dengue and chikungunyaneed to rule those out malaria is also a possibility REVA SMITH [address] [place], [address], [facility] 04/10/2023 15:33:35 4 text/htm l ROS as noted in the HPI fu BW The patient is participating in this appointment via telemedicine communication with a phone call/video calling service (Optics 1)The patient consents to use of these platforms in place of an in-person appointment due to either sick symptoms the patient is presenting with or current office closure due to COVID exposure in order to keep our office staff and patients safe follow up BW workWBC count up, elevated CRP and ESRnegative Lyme, haven't received his other BW yethaving wheezing but no sob or chest pain, 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, and with the fever agreed to fu with an will discuss with patient about possible blood culture tomorrow as an additional lab in the meantime as that may come back sooner than the other infectious disease panels I have run will also start patient on Cipro on the meantime US echo and CT abd/pelvis might also be indicated if everything comes back normal given unknown agent at this time will fu with patient tomorrow cont with advil and APAP REVA SMIHT [address] [facility], [place], [address], [facility] 04/11/2023 14:31:43 4 text/htm l Medicare Annual Wellness VisitReported by PatientSocial/Behavioral HistoryFor diet and nutrition, patient reportshealthy diet. For fracture risk, patient reportsno history of fractures,no recent explained fracture,no sudden unexplained fractures, andno previous musculoskeletal injuries. For physical activity, patient reportsexercises on a regular basis,recent increase in physical activity, andgood physical condition.Mental Status:For depression risk, patient reportsnever feels sad, empty, or tearful,no loss of interest in activities,no significant changes in weight,no sleep disturbances or insomnia,no agitation,no loss of energy,no feelings of worthlessness or guilt,no thoughts of suicide,no history of depression, andno history of mood disorders. For orientation, patient reportsno disorientation to time,no disorientation to date, andno disorientation to place. For concentration and memory, patient reportsno decreased concentrating ability,no memory lapses or loss, anddoes not forget words. For speech/motor difficulties, patient reportsno speech difficulties,no difficulty expressing formulated concepts,no difficulty with fine manipulative tasks,no difficulty writing/copying,no slowed reaction time, anddoes not knock things over when trying to pick them up.Functional AbilityFor hearing, patient reportsno loss of hearing. For vision, patient reportsno vision problems. For activities of daily living, patient reportsable to bathe with limited or no assistance,able to contol urination and bowels,able to dress with limited or no assistance,able to feed self with limited or no assistance,able to get out of chair or bed with limited or no assistance,able to groom with limited or no assistance, andable to toilet with limited or no assistance. For instrumental activities of daily living, patient reportsable to do house work with limited or no assistance,able to grocery shop with limited or no assistance,able to manage medications with limited or no assistance,able to manage money with limited or no assistance,able to prepare meals with limited or no assistance, andable to use the phone with limited or no assistance. For falls risk assessment, patient reportsno frequent falls while walking,no fall in the past year,no fall since last visit, andno dizziness/vertigo. For home safety, patient reportsno unsafe aliya hazzards,no unsafe stairs,no unsafe gas appliances,working smoke/co detectors,wears protective head gear for biking/high velocity,use of seatbelts,practicing 'safer sex',no vision or hearing loss while driving,no fire arms,has hand bars in the bathroom/shower, andgood lighting in the home.ROS as noted in the HPI here Nguyễn LynettePrincess Causey, DO [address] [facility], [place], [address], [facility] 12/27/2023 15:08:33 5 text/htm l Care Management - HypertensionReported by PatientHPIFor self care, patient reportsnot under emotional stress. For severity, patient reportssymptoms are improvinganddoes not interfere with daily activities. For associated symptoms, patient reportsno dizziness,no lightheadedness,no chest pain,no shortness of breath,no palpitations,no edema,no calf muscle cramps,no blurred vision,no confusion,no headaches, andno fatigue. Medicare Annual Wellness VisitReported by PatientSocial/Behavioral HistoryFor diet and nutrition, patient reportshealthy diet. For fracture risk, patient reportsno history of fractures,no recent explained fracture,no sudden unexplained fractures, andno previous musculoskeletal injuries. For physical activity, patient reportsexercises on a regular basis,recent increase in physical activity, andgood physical condition.Mental Status:For depression risk, patient reportsnever feels sad, empty, or tearful,no loss of interest in activities,no significant changes in weight,no sleep disturbances or insomnia,no agitation,no loss of energy,no feelings of worthlessness or guilt,no thoughts of suicide,no history of depression, andno history of mood disorders. For orientation, patient reportsno disorientation to time,no disorientation to date, andno disorientation to place. For concentration and memory, patient reportsno decreased concentrating ability,no memory lapses or loss, anddoes not forget words. For speech/motor difficulties, patient reportsno speech difficulties,no difficulty expressing formulated concepts,no difficulty with fine manipulative tasks,no difficulty writing/copying,no slowed reaction time, anddoes not knock things over when trying to pick them up.Functional AbilityFor hearing, patient reportsno loss of hearing. For vision, patient reportsno vision problems. For activities of daily living, patient reportsable to bathe with limited or no assistance,able to contol urination and bowels,able to dress with limited or no assistance,able to feed self with limited or no assistance,able to get out of chair or bed with limited or no assistance,able to groom with limited or no assistance, andable to toilet with limited or no assistance. For instrumental activities of daily living, patient reportsable to do house work with limited or no assistance,able to grocery shop with limited or no assistance,able to manage medications with limited or no assistance,able to manage money with limited or no assistance,able to prepare meals with limited or no assistance, andable to use the phone with limited or no assistance. For falls risk assessment, patient reportsno frequent falls while walking,no fall in the past year,no fall since last visit, andno dizziness/vertigo. For home safety, patient reportsno unsafe aliya hazzards,no unsafe stairs,no unsafe gas appliances,working smoke/co detectors,wears protective head gear for biking/high velocity,use of seatbelts,practicing 'safer sex',no vision or hearing loss while driving,no fire arms,has hand bars in the bathroom/shower, andgood lighting in the home.ROS as noted in the HPI here for mwv and is doing ok except for sinus congestion and productive cough for 4 weeksseen in UC cxr neg several weeks ago has had elevated bps lately and also has had meds adjustedhad a holter monitor which showe d extra beats and pauses has a hx of sleep apnea but didnt tolerate the cpap has a home study ordered Nguyễn Causey, DO [address] [facility], [place], [address], [facility] 01/21/2025 09:30:13
--- OUTSIDE RECORDS SUMMARY | 2025-01-22 07:35 | XMS_ITS | Encounter Summary ---
Author Organization [facility] Address [facility] [address] [place] [address] Phone Care Team Providers Care Kiln Tender Name Role Phone Nguyễn Vance DO Unavailable Cnoor Hdz MD Unavailable Elgin Ayoub MD Unavailable [phone] Juan Alonso MD Unavailable [phone] Marko Breaux MD Unavailable Bigda, Nguyễn A DO Primary Care Provider [phone] Bigda, Nguyễn A DO Primary Care Provider [phone] Bigda, Nguyễn A DO Primary Care Provider [phone] Encounter Details Date Type Department Care Team (Latest Contact Info) Description 08/08/2018 Transcribe Orders [address] [address] Ashok Villarreal MD, PhD [address] [place] [address] Avitaminosis D (Primary Dx) Social History Tobacco Use Types Packs/Day Years Used Date Smoking Tobacco: Never Assessed Sex and Gender Information Value Date Recorded Sex Assigned at Not on file Legal Sex Male 9:56 PM EDT Gender Identity Not on file Sexual Orientation Not on file documented as of this encounter Plan of Treatment Not on file documented as of this encounter Results * 25-OH vitamin D (08/08/2018 7:55 AM EDT) 25 OH VIT D (TOTAL) 39 30 - 60 ng/mL [facility] Blood 08/08/2018 7:55 AM EDT 08/08/2018 8:42 AM EDT us Ashok Villarreal MD, PhD LAB BLOOD BKR ORDERABLE S Final Result [facility] [address] [place] [address] documented in this encounter Visit Diagnoses Diagnosis Avitaminosis D- Primary Unspecified vitamin D deficiency documented in this encounter Additional Health Concerns Infection Onset Date Last Indicated Resolved Time CoV-Risk 10/24/2021 10/24/2021 11/04/2021 1:23 AM EDT CoV-Risk 03/01/2024 03/01/2024 03/12/2024 1:22 AM EST Resp-Risk 01/16/2025 01/16/2025 documented as of this encounter Care Teams Kiln Tender Relationship Specialty Start Date End Date Nguyễn Vance DO PCP - General 03/02/17 09/15/20 Nguyễn Vance DO PCP - General Internal Medicine 09/16/20 01/15/25 Nguyễn Vance DO [address] [place] [address] PCP - General Internal Medicine 01/16/25 Nguyễn Vance DO Historical LMR Provider 12/13/16 Conor Hdz MD [address] [place] [address] Historical LMR Provider 12/13/16 2 Elgin Ayoub MD [address] [place] [address], [address] [place] [address] [email or web address] Historical LMR Provider 12/13/16 03/06/21 Juan Alonso MD [address] [place] [address] Historical LMR Provider 12/13/16 Marko Breaux MD [address] [place] [address] [email or web address] Historical LMR Provider 12/13/16 documented as of this encounter Additional Source Comments The information contained in this document represents components of the legal health record. It is not the complete legal health record.[facility]
--- OUTSIDE RECORDS SUMMARY | 2025-01-22 07:35 | XMS_ITS | Encounter Summary ---
Author Organization [facility] Address [address] [place] [address] Phone Care Team Providers Care Wood Patternmaker Name Role Phone Nguyễn Vance DO Unavailable Conor Hdz MD Unavailable Elgin Ayoub MD Unavailable [phone] Juan Alonso MD Unavailable Marko Breaux MD Unavailable Bigda, Nguyễn A DO Primary Care Provider [phone] Bigda, Nguyễn A DO Primary Care Provider [phone] Bigda, Nguyễn A DO Primary Care Provider [phone] Encounter Details Date Type Department Care Team (Late st Contact Info) Description 02/06/2019 Transcribe Orders Virtual Department [address] [place] [address] Dorinda Downing, NICK [address] An[address]. [address] [place] [address] [email or web address] Cough (Primary Dx) Social History Tobacco Use Types [...] XR CHEST PA AND LATERAL 2 VIEWS (02/06/2019 3:18 PM EST) Anatomical Region Laterality Modality Chest Radiographic Nancy ging 02/06/2019 3:31 PM EST Impressions 02/06/2019 4:04 PM EST Bandlike atelectasis probably on the left seen on lateral view. No infiltrate or other source of the cough detected. POS - [id number] Edited by: Petty Linder on 02/06/2019 3:35 PM Narrative 02/06/2019 4:04 PM EST PA and lateral views of the chest obtained. No prior. Heart not enlarged. No mediastinal contour finding of concern. Slight rotation to the right. Small bandlike area of atelectasis suggested on lateral. Nipple shadows noted. No free air or pneumothorax. No compression deformity seen. Procedure Note Loyda Avilez MD - 02/06/2019 PA and lateral views of the chest obtained. No prior. Heart not enlarged.No mediastinal contour finding of concern. Slight rotation to the right.Small bandlike area of atelectasis suggested on lateral. Nipple shadowsnoted. No free air or pneumothorax. No compression deformity seen. IMPRESSION: Bandlike atelectasis probably on the left seen on lateral view. Noinfiltrate or other source of the cough detected. POS - [id number] Edited by: Petty Linder on 02/06/2019 3:35 PM May Chang ROMERO IMG XR CHEST Final Result documented in this encounter Visit Diagnoses Diagnosis Cough- Primary Cough documented in this encounter Additional Health Concerns Infection Onset Date Last Indicated Resolved Time CoV-Risk 10/24/2021 10/24/2021 11/04/2021 1:23 AM EDT CoV-Risk 03/01/2024 03/01/2024 03/12/2024 1:22 AM EST Resp-Risk 01/16/2025 01/16/2025 documented as of this encounter Care Teams Wood Patternmaker Relationship Specialty Start Date End Date Nguyễn Vance DO PCP - General 03/02/17 09/15/20 Nguyễn Vance DO PCP - General Internal Medicine 09/16/20 01/15/25 Nguyễn Vance DO [address] [place] [address] PCP - General Internal Medicine 01/16/25 Nguyễn Vance DO [email or web address] Historical LMR Provider 12/13/16 Conor Hdz MD [address] [place] [address] Historical LMR Provider 12/13/16 2 Elgin Ayoub MD [address] [address] [email or web address] Historical LMR Provider 12/13/16 03/06/21 Juan Alonso MD [address] [place] [address] Historical LMR Provider 12/13/16 Marko Breaux MD [address] [place] [address] [email or web address] Historical LMR Provider 12/13/16 documented as of this encounter Additional Source Comments The information contained in this document represents components of the legal health record. It is not the complete legal health record.[facility]
--- OUTSIDE RECORDS SUMMARY | 2025-01-22 07:35 | XMS_ITS | Encounter Summary ---
Author Organization [facility] Address [address] [place] [address] [place] [address] Phone Care Team Providers Care Rehab Consultant Name Role Phone Nguyễn Vance DO Unavailable Conor Hdz MD Unavailable Elgin Ayoub MD Unavailable [phone] Juan Alonso MD Unavailable [phone] Marko Breaux MD Unavailable Bigda, Nguyễn A DO Primary Care Provider [phone] Bigda, Nguyễn A DO Primary Care Provider [phone] Bigda, Nguyễn A DO Primary Care Provider [phone] Encounter Details Date Type Department Care Team (Latest Contact Info) Description 10/02/2018 Transcribe Orders [address] [address] Moira Agrawal, SHAHRZAD [address] [place] [address] Atherosclerosis of [place] coronary artery, angina presence unspecified, unspecified whether [place] or transplanted heart (Primary Dx) Social History Tobacco Use Types Packs/Day Years Used Date Smoking Tobacco: Never Assessed Sex and Gender Information Value Date Recorded Sex Assigned at Not on file Legal Sex Male 9:56 PM EDT Gender Identity Not on file Sexual Orientation Not on file documented as of this encounter Plan of Treatment Not on file documented as of this encounter Results * (ABNORMAL) Lipid panel (10/02/2018 7:31 AM EDT) HDL 57 mg/dL [facility] Comment: Interpretation <40 mg/dL: Low HDL cholesterol (major risk factor for CHD) Greater than or equal to 60 mg/dL: High HDL cholesterol ( negative risk factor for CHD) HDL - cholesterol is affected by a number of factors, e.g. smoking, excerise, hormones, sex and age. CHOLESTEROL 121 0 - 240 mg/dL [facility] TRIGLYCERIDES 88 30 - 160 mg/dL [facility] LDL 46(L) 50 - 129 mg/dL [facility] Comment: LDL levels in terms of risk for coronary heart disease: <100 mg/dL: Optimal 100-129 mg/dL: Near or above optimal 130-159 mg/dL: Borderline high 160-189 mg/dL: High >190 mg/dL: Very High CARDIAC RISK RATIO 2.1(L) 3.4 - 5.0 C [facility] Blood 10/02/2018 7:31 AM EDT 10/02/2018 1:02 PM EDT us Moira Agrawal PUBLIC HEALTH AIDE LAB BLOOD BKR ORDERABLES Final Result Performing Organization Address City/State/[facility] Co de Phone Number [address] [address] documented in this encounter Visit Diagnoses Diagnosis Atherosclerosis of [place] coronary artery, angina presence unspecified, unspecified whether [place] or transplanted heart- Primary documented in this encounter Additional Health Concerns Infection Onset Date Last Indicated Resolved Time CoV-Risk 10/24/2021 10/24/2021 11/04/2021 1:23 AM EDT CoV-Risk 03/01/2024 03/01/2024 03/12/2024 1:22 AM EST Resp-Risk 01/16/2025 01/16/2025 documented as of this encounter Care Teams Rehab Consultant Relationship Specialty Start Date End Date Nguyễn Vance DO PCP - General 03/02/17 09/15/20 Nguyễn Vance DO PCP - General Internal Medicine 09/16/20 01/15/25 Nguyễn Vance DO [address] [facility] [place] [address] PCP - General Internal Medicine 01/16/25 Nguyễn Vance DO Historical LMR Provider 12/13/16 Conor Hdz MD [address] [address] Historical LMR Provider 12/13/16 2 Elgin Ayoub MD [address] [address] [email or web address] Historical LMR Provider 12/13/16 03/06/21 Juan Alonso MD [address] [place] [address] Historical LMR Provider 12/13/16 Marko Breaux MD [address] [place] [address] [email or web address] Historical LMR Provider 12/13/16 documented as of this encounter Additional Source Comments The information contained in this document represents components of the legal health record. It is not the complete legal health record.[facility]
--- OUTSIDE RECORDS SUMMARY | 2025-01-22 07:35 | XMS_ITS | Encounter Summary ---
Author Organization [facility] Address [address] [place] [address] [place] [address] Phone Care Team Providers Care Sales Service Representative Name Role Phone Nguyễn Vance DO Unavailable Conor Hdz MD Unavailable Elgin Ayoub MD Unavailable [phone] Juan Alonso MD Unavailable [phone] Marko Breaux MD Unavailable Unknown, Unknown MD Primary Care Provider Jimena Vance, Nguyễn A DO Primary Care Provider [phone] Bigda, Nguyễn A DO Primary Care Provider [phone] Bigda, Nguyễn A DO Primary Care Provider [phone] Encounter Details Date Type Department Care Team (Latest Contact Info) Description 02/22/2017 Transcribe Orders [address] [address] Marko Breaux MD [address] [place] [address] [email or web address] Old myocardial infarction (Primary Dx); Hyperlipidemia, unspecified hyperlipidemia type Social History Tobacco Use Types Packs/Day Years Used Date Smoking Tobacco: Never Assessed Sex and Gender Information Value Date Recorded Sex Assigned at Not on file Legal Sex Male 9:56 PM EDT Gender Identity Not on file Sexual Orientation Not on file documented as of this encounter Plan of Treatment Not on file documented as of this encounter Results * (ABNORMAL) Lipid panel (02/22/2017 7:42 AM EST) HDL 48 mg/dL [facility] Comment: Interpretation: Risk Level Males Decreased >45 mg/dL Average 40-45 mg/dL Increased <40 mg/dL CHOLESTEROL 176 0 - 240 mg/dL [facility] TRIGLYCERIDES 232(H) 30 - 160 mg/dL [facility] LDL 82 50 - 129 mg/dL [facility] Comment: LDL levels in terms of risk for coronary heart disease: <100 mg/dL: Optimal 100-129 mg/dL: Near or above optimal 130-159 mg/dL: Borderline high 160-189 mg/dL: High >190 mg/dL: Very High CARDIAC RISK RATIO 3.7 3.4 - 5.0 C [facility] Blood 02/22/2017 7:42 AM EST 02/22/2017 8:38 AM EST Marko Breaux MD LAB BLOOD BKR ORDERABLES Final R esult [facility] [address] [place] [address] documented in this encounter Visit Diagnoses Diagnosis Old myocardial infarction- Primary Hyperlipidemia, unspecified hyperlipidemia type documented in this encounter Additional Health Concerns Infection Onset Date Last Indicated Resolved Time CoV-Risk 10/24/2021 10/24/2021 11/04/2021 1:23 AM EDT CoV-Risk 03/01/2024 03/01/2024 03/12/2024 1:22 AM EST Resp-Risk 01/16/2025 01/16/2025 documented as of this encounter Care Teams Sales Service Representative Relationship Specialty Start Date End Date Unknown, Unknown, [address] [place] [address] PCP - General 02/22/17 03/01/17 Nguyễn Vance DO PCP - General 03/02/17 09/15/20 Nguyễn Vance DO PCP - General Internal Medicine 09/16/20 01/15/25 Nguyễn Vance DO [address] [facility] [place] [address] PCP - General Internal Medicine 01/16/25 Nguyễn Vance DO Historical LMR Provider 12/13/16 Conor Hdz MD [address] [address] Historical LMR Provider 12/13/16 2 Elgin Ayoub MD [address] [address] [email or web address] Historical LMR Provider 12/13/16 03/06/21 Juan Alonso MD [address] [place] [address] Historical LMR Provider 12/13/16 Marko Breaux MD [address] [place] [address] [email or web address] Historical LMR Provider 12/13/16 documented as of this encounter Additional Source Comments The information contained in this document represents components of the legal health record. It is not the complete legal health record.[facility]
--- OUTSIDE RECORDS SUMMARY | 2025-01-22 07:35 | XMS_ITS | Encounter Summary ---
Author Organization [facility] Address [address] [place] [address] [place] [address] Phone Care Team Providers Care Account Solutions Analyst Name Role Phone Nguyễn Vance DO Unavailable Conor Hdz MD Unavailable [phone] Elgin Ayoub MD Unavailable [phone] Juan Alonso MD Unavailable [phone] Marko Breaux MD Unavailable Bigda, Nguyễn A DO Primary Care Provider [phone] Bigda, Nguyễn A DO Primary Care Provider [phone] Bigda, Nguyễn A DO Primary Care Provider [phone] Encounter Details Date Type Department Care Team (Latest Contact Info) Description 07/11/2017 Transcribe Orders [address] [address] Marko Breaux MD [address] [place] [address] [email or web address] Old myocardial infarction (Primary Dx) Social History Tobacco Use Types [...] this encounter Results * (ABNORMAL) Lipid panel (07/11/2017 7:53 AM EDT) HDL 61 mg/dL [facility] Comment: Interpretation: Risk Level Males Decreased >45 mg/dL Average 40-45 mg/dL Increased <40 mg/dL CHOLESTEROL 160 0 - 240 mg/dL [facility] TRIGLYCERIDES 98 30 - 160 mg/dL [facility] LDL 79 50 - 129 mg/dL [facility] Comment: LDL levels in terms of risk for coronary heart disease: <100 mg/dL: Optimal 100-129 mg/dL: Near or above optimal 130-159 mg/dL: Borderline high 160-189 mg/dL: High >190 mg/dL: Very High CARDIAC RISK RATIO 2.6(L) 3.4 - 5.0 C [facility] Blood 07/11/2017 7:53 AM EDT 07/11/2017 8:59 AM EDT us Marko Breaux MD LAB BLOOD BKR ORDERABLES Final R esult Performing Organization Address City/State/[facility] Co de Phone Number [facility] [address] [place] [address] documented in this encounter Visit Diagnoses Diagnosis Old myocardial infarction- Primary documented in this encounter Additional Health Concerns Infection Onset Date Last Indicated Resolved Time CoV-Risk 10/24/2021 10/24/2021 11/04/2021 1:23 AM EDT CoV-Risk 03/01/2024 03/01/2024 03/12/2024 1:22 AM EST Resp-Risk 01/16/2025 01/16/2025 documented as of this encounter Care Teams Account Solutions Analyst Relationship Specialty Start Date End Date Nguyễn Vance DO [email or web address] PCP - General 03/02/17 09/15/20 Nguyễn Vance DO PCP - General Internal Medicine 09/16/20 01/15/25 Nguyễn Vacne DO [address] [facility] [place] [place] [address] PCP - General Internal Medicine 01/16/25 Nguyễn Vance DO [email or web address] Historical LMR Provider 12/13/16 Conor Hdz MD [address] [address] Historical LMR Provider 12/13/16 2 Elgin Ayoub MD [address] [address] [email or web address] Historical LMR Provider 12/13/16 03/06/21 Juan Alonso MD [address] [place] [address] Historical LMR Provider 12/13/16 Marko Breaux MD [address] [place] [address] [email or web address] Historical LMR Provider 12/13/16 documented as of this encounter Additional Source Comments The information contained in this document represents components of the legal health record. It is not the complete legal health record.[facility]
--- OUTSIDE RECORDS SUMMARY | 2025-01-22 07:35 | XMS_ITS | Encounter Summary ---
Author Organization [facility] Address [address] [place] [address] [place] [address] Phone Care Team Providers Care Documentation Liaison Name Role Phone Nguyễn Vance DO Unavailable Conor Hdz MD Unavailable [phone] Elgin Ayoub MD Unavailable [phone] Juan Alonso MD Unavailable [phone] Marko Breaux MD Unavailable Bigda, Nguyễn A DO Primary Care Provider [phone] Bigda, Nguyễn A DO Primary Care Provider [phone] Bigda, Nguyễn A DO Primary Care Provider [phone] Encounter Details Date Type Department Care Team (Latest Contact Info) Description 08/08/2018 Transcribe Orders [address] [address] Moira Agrawal, SHAHRZAD [address] [place] [address] 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 smoking, excerise, hormones, sex and age. CHOLESTEROL 148 0 - 240 mg/dL [facility] TRIGLYCERIDES 84 30 - 160 mg/dL [facility] LDL 78 50 - 129 mg/dL [facility] Comment: LDL levels in terms of risk for coronary heart disease: <100 mg/dL: Optimal 100-129 mg/dL: Near or above optimal 130-159 mg/dL: Borderline high 160-189 mg/dL: High >190 mg/dL: Very High CARDIAC RISK RATIO 2.8(L) 3.4 - 5.0 C [facility] Blood 08/08/2018 7:55 AM EDT 08/08/2018 8:42 AM EDT us Moira Agrawal [employer] LAB BLOOD BKR ORDERABLES Final Result Performing Organization Address City/State/[facility] Co de Phone Number [address] [phone] documented in this encounter Visit Diagnoses Diagnosis 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, unspecified whether tetlin or transplanted heart- Primary documented in this encounter Additional Health Concerns Infection Onset Date Last Indicated Resolved Time CoV-Risk 10/24/2021 10/24/2021 11/04/2021 1:23 AM EDT CoV-Risk 03/01/2024 03/01/2024 03/12/2024 1:22 AM EST Resp-Risk 01/16/2025 01/16/2025 documented as of this encounter Care Teams Documentation Liaison Relationship Specialty Start Date End Date Nguyễn Vance DO PCP - General 03/02/17 09/15/20 Nguyễn Vance DO PCP - General Internal Medicine 09/16/20 01/15/25 Nguyễn Vance DO [address] [facility] [place] [address] PCP - General Internal Medicine 01/16/25 Nguyễn Vance DO Historical LMR Provider 12/13/16 Conor Hdz MD [address] [address] Historical LMR Provider 12/13/16 2 Elgin Ayoub MD [address] [address] [email or web address] Historical LMR Provider 12/13/16 03/06/21 Juan Alonso MD [address] [place] [address] Historical LMR Provider 12/13/16 Marko Breaux MD [address] [place] [address] [email or web address] Historical LMR Provider 12/13/16 documented as of this encounter Additional Source Comments The information contained in this document represents components of the legal health record. It is not the complete legal health record.[facility]
--- OUTSIDE RECORDS SUMMARY | 2025-01-22 07:35 | XMS_ITS | Continuity of Care Document ---
Author Organization [facility] Address [address] [facility] [place] [address] [place] [address] Assessment Encounter Date Assessment Date Assessment LastModified by Organization Details LastModified Time 01/21/2025 01/21/2025 Patient presente d to office [...] available Lab CMP, serum or plasma 2024 [facility], [address] [place] [address], [address], 01/21/2025 09:30:43 PSA, serum or plasma 2024 025 [facility], [address] [place] [address], [address], 01/21/2025 09:30:42 CBC w/ auto diff 2024 025 [facility], [address] [place] [address], [address], 01/21/2025 09:30:43 hemoglobi n, gastroint estinal, stool 2024 [facility], [address] [facility], [place], [address], 01/21/2025 09:30:43 lipid panel, blood 2024 025 [facility], [address] [facility], [place], [address], 01/21/2025 09:30:43 Referral None recorded. Procedures None recorded. Surgeries None recorded. Imaging None recorded. Medication Orders azithromy cayla 250 mg tablet 2024 [facility], [address] [place], [address], 01/21/2025 09:27:24 Patient TargetsNo targets recorded. Patient Instructions Encounter Date Encounter Id Patient Instructions Last Modified By Organization Details Last Modified Time 01/21/2025 [id number] advance care planning: care instructions Not available 01/21/2025 09:27:21 cough: care instructions Not available 01/21/2025 09:27:21 Discussed and explained advance directives such as standard forms to the . Face to face discussion lasted for a duration of ___ minutes. Not available 11/22/2024 11:55:20 Reason for Referral None Reported. Results Created Date Observation Date Name Description Value Unit Range Abnormal Flag Note LastModifiedBy Organization Detail LastModifiedTime 01/17/2001/16/2025 XR, chest , 2 view No observ ation record ed. [facility] [address] [place], [address], 01/16/2025 10:48:26 Result Notes None recorded. Problems Name Problem SNOMED Code Status Onset Date Resolution Date Notes Provider Name and Address Organization Details Recorded Time Hyperchole sterolemia 53767350 Active 2018 Not Available [facility] 11:37:41 Gastroesop hageal reflux disease 244597659 Active 2018 Not Available [facility] 3 11:37:41 Environmen shi allergy 598493090 Active 2018 Not Available [facility] 3 11:37:41 Dilation of esophageal stricture Active 2018 Not Available [facility] 3 11:37:41 Impaired fasting glycemia 483886419 Active 2018 Not Available [facility] 3 11:37:41 Coronary arterioscl erosis 43906599 Active 2018 Not Available [facility] 3 11:37:[address] segment elevation myocardial infarction 061383834 Active 2018 Not Available [facility] 3 11:37:41 Sinus bradycardi a 30890949 Active 2018 Not Available [facility] 3 11:37:41 Mobitz type I incomplete atrioventr icular block 25538703 Active 2018 Not Available [facility] 3 11:37:41 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 67822124 Active 2018 Not Available [facility] 3 11:37:41 Primary erectile dysfunctio n 196278072 Active 2021 Not Available [facility] 3 11:37:41 COVID-19 319076441 Active 2021 Not Available [facility] 3 11:37:41 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 080371828 Active 2022 Not Available [facility] 3 11:37:41 Candidiasi s of skin 19340806 Active 2022 Not Available [facility] 3 11:37:41 Pain in throat 584135718 Active 2022 Not Available [facility] 3 11:37:41 Hypertensi ve disorder 88587718 Active 2022 Nguyễn Causey, DO [address] [facility], [place], [address], [facility] 3 14:59:44 Insect bite reaction 023545395 Active 2023 REVA SMITH [address] [place] [address], [address], [facility] 4 15:19:15 Pyrexia of unknown origin 5828313 Active 2023 REVA SMITH [address] [place] [address], [address], [facility] 4 15:21:25 Pneumonia 068263716 Active 2023 REVA SMITH [address] [place] [address], [address], [facility] 4 16:37:29 Cough 60029897 Active 2024 Nguyễn Causey DO [address] [place] [address], [address], [facility] 5 11:57:30 Erectile dysfunctio n 681319876 Active 2024 Nguyễn Causey DO [address] [place] [address], [address], [facility] 5 16:03:59 Problem Notes None recorded. Procedures Surgical History Date Name Laterality Status Provider Name and Address Organization Details Recorded Time 04/30/19 22 Colonoscopy completed Nguyễn Causey DO [address] [place] [address], [phone], [facility] 04/29/2021 16:02:19 Imaging Results None recorded. Procedure Notes None recorded. Medical Equipment None Reported. Allergies Allergen ID Allergen Name Allergen Category Reaction Reaction Severity Criticality Documentation Date Start Date Code Code System Note Provider Name and Address Organization Details Recorded Time 14386 melon extract food Not available Not available [facility] 01/21/20252021 24145 10 RxNorm Not Available [employer] - prod 5 03:46:19 04744 walnut allergeni c extract food Not available Not available high 01/21/20252021 36928 0 RxNorm Not Available [employer] - prod 5 03:46:19 No known drug allergies Medications Name [...] DAYS, THEN 1 TAB X 2 DAYS 01/21 completed Not Available Not Available Not [...] Not Available Not Available Not Available [facility] spacer INHALE 1 EACH INTO THE LUNGS [...] Available Not Available Vitals Date Recorded Body weight Body mass index (BMI) Body height Heart rate Oxygen saturation Systolic And Diastolic Provider Name and Address Organization Details Last Updated DateTime 5 27[address].8 6 g 29.6 kg/m2 182.88 cm 66 /min 95 % 142/66 mm[Hg] [facility] 5 09:03:20 Social History Question Answer Notes LastModified by Organizat ion Details LastModified Time Tobacco Smoking Status Former Smoker Not Available [employer] 12/31/2019 03:36:24 What Was The Date Of [...] quadrivalent, preservative 01/13/20 21 completed Not Available [facility] 04/04/2022 07:25:49 COVID-19, mRNA, LNP-S, PF, 100 mcg/0.5mL dose or 50 mcg/0.25mL dose 02/23/20 21 completed Not Available [facility] 04/04/2022 07:25:50 Tdap 09/08/19 22 completed Not Available [facility] 04/04/2022 07:25:50 influenza, unspecified formulation 11/03/19 23 completed Nguyễn Causey [address], [address], [facility] 11/03/2022 16:30:46 influenza, unspecified formulation 11/13/19 25 completed Nguyễn Causey DO [address] [place] [address], [address], [facility] 01/21/2025 09:20:41 Influenza, split virus, quadrivalent, preservative 03/06/19 19 completed Not Available [facility] 04/04/2022 07:25:49 zoster, unspecified formulation 03/05/19 20 completed Not Available [facility] 04/04/2022 07:25:49 COVID-19, mRNA, LNP-S, PF, 100 mcg/0.5mL dose or 50 mcg/0.25mL dose 05/19/19 21 completed Not Available [facility] 04/04/2022 07:25:50 COVID-19, mRNA, LNP-S, PF, 100 mcg/0.5mL dose or 50 mcg/0.25mL dose 04/20/19 21 completed Not Available [facility] 04/04/2022 07:25:50 zoster, unspecified formulation 08/12/19 20 completed Not Available [facility] 04/04/2022 07:25:50 pneumococcal polysaccharide PPV23 03/18/19 17 completed Not Available [facility] 04/04/2022 07:25:50 Past Encounters Encounter ID Performer Location Encounter Start Date Encounter Closed Date Diagnosis/Indication Diagnosis SNOMED-CT Code Diagnosis ICD10 Code Diagnosis IMO Codes Diagnosis Note [id number] DO [facility] [address] [facility] [address],[place] [address] 01/21/2025 08:57:23 01/21/2025 09:33:57 Screening for cardiovascular system disease 082442372 Z13.6 needs lab Screening for malignant neoplasm of colon 044365205 Z12.11 stable Depression screening 171 099711 Z13.31 neg Hypertensive disorder 38 389198 I10 just started on amlodipine 2.5 but doesnt have appt til may Coronary arteriosclerosis 55589920 I25.10 asymptomat ic and has no evid of activity after workup at [facility] Cough 87414506 R05.9 ongoing for 4 weeks needs tx General ex amination of patient 006458814 Z00.01 94159930 doing well Health Concerns Section Related Observation LastModified by Organization Detai ls LastModified Time None Recorded Concern Status LastModified by Organization Details LastModified Time None Recorded Payers Encounter Date Sequence Insurance Name Policy Number Policy Finnegan Covered Member ID Finnegan Member ID Guarantor Name 01/21/2025 1 [place]: [employer] Rick Carney [id number] Rick Carney 01/21/2025 2 [facility] INDEMNITY PLAN (INDEMNITY) [id number] Sonia Carney [id number] Rick Carney Notes Date Note Type Note Provider Name and Address Organization Details Recorded Time 5 text/htm l Care Management - HypertensionReported [...] home study ordered Nguyễn Causey, DO [address] [facility], [place], [address], [facility] 01/21/2025 09:30:13
--- OUTSIDE RECORDS SUMMARY | 2025-01-22 07:35 | XMS_ITS | Encounter Summary ---
Author Organization [facility] Address [address] [place] [address] [place] [address] Phone Care Team Providers Care House Rn Name Role Phone Nguyễn Vance DO Unavailable Conor Hdz MD Unavailable [phone] Elgin Ayoub MD Unavailable [phone] Juan Alonso MD Unavailable [phone] Marko Breaux MD Unavailable Bigda, Nguyễn A DO Primary Care Provider [phone] Bigda, Nguyễn A DO Primary Care Provider [phone] Bigda, Nguyễn A DO Primary Care Provider [phone] Encounter Details Date Type Department Care Team (Latest Contact Info) Description 03/05/2018 Transcribe Orders [address] [address] Marko Breaux MD [address] [place] [address] [email or web address] Hyperlipidemia, unspecified hyperlipidemia type (Primary Dx) Social History Tobacco Use Types [...] this encounter Results * (ABNORMAL) Lipid panel (03/05/2018 8:06 AM EST) HDL 51 mg/dL [facility] Comment: Interpretation <40 mg/dL: Low HDL cholesterol (major risk factor for CHD) Greater than or equal to 60 mg/dL: High HDL cholesterol ( negative risk factor for CHD) HDL - cholesterol is affected by a number of factors, e.g. smoking, excerise, hormones, sex and age. CHOLESTEROL 160 0 - 240 mg/dL [facility] TRIGLYCERIDES 96 30 - 160 mg/dL [facility] LDL 90 50 - 129 mg/dL [facility] Comment: LDL levels in terms of risk for coronary heart disease: <100 mg/dL: Optimal 100-129 mg/dL: Near or above optimal 130-159 mg/dL: Borderline high 160-189 mg/dL: High >190 mg/dL: Very High CARDIAC RISK RATIO 3.1(L) 3.4 - 5.0 C [facility] Blood 03/05/2018 8:06 AM EST 03/05/2018 8:11 AM EST us Marko Breaux MD LAB BLOOD BKR ORDERABLES Final R esult Performing Organization Address City/State/[facility] Co de Phone Number [address] [address] documented in this encounter Visit Diagnoses Diagnosis Hyperlipidemia, unspecified hyperlipidemia type- Primary documented in this encounter Additional Health Concerns Infection Onset Date Last Indicated Resolved Time CoV-Risk 10/24/2021 10/24/2021 11/04/2021 1:23 AM EDT CoV-Risk 03/01/2024 03/01/2024 03/12/2024 1:22 AM EST Resp-Risk 01/16/2025 01/16/2025 documented as of this encounter Care Teams House Rn Relationship Specialty Start Date End Date Nguyễn Vance DO PCP - General 03/02/17 09/15/20 Nguyễn Vance DO PCP - General Internal Medicine 09/16/20 01/15/25 Nguyễn Vance DO [address] [facility] [place] [address] PCP - General Internal Medicine 01/16/25 Nguyễn Vance DO Historical LMR Provider 12/13/16 Conor Hdz MD [address] [address] Historical LMR Provider 12/13/16 2 Elgin Ayoub MD [address] [address] [email or web address] Historical LMR Provider 12/13/16 03/06/21 Juan Alonso MD [address] [place] [address] Historical LMR Provider 12/13/16 Marko Breaux MD [address] [place] [address] [email or web address] Historical LMR Provider 12/13/16 documented as of this encounter Additional Source Comments The information contained in this document represents components of the legal health record. It is not the complete legal health record.[facility]
--- OUTSIDE RECORDS SUMMARY | 2025-01-22 07:35 | XMS_ITS | Encounter Summary ---
Author Organization [facility] Address [address] [facility] [address] [place] [address] Phone Care Team Providers Care Executive Chairman Of The Board Name Role Phone Rajiv Nguyễn Ojeda DO Unavailable Marko Breaux MD Unavailable Nguyễn Vance DO Primary Care Provider [phone] Nguyễn Vance DO Primary Care Provider [phone] Encounter Details Date Type Department Care Team (Late st Contact Info) Description 02/08/2023 Procedure Pass [facility] Endoscopy Admitting Dept Virtual Department [address] [place] [address] Social History Tobacco Use Types Packs/Day Years [...] on file documented as of this encounter Visit Diagnoses Not on filedocumented in this encounter Additional Health Concerns Infection Onset Date Last Indicated Resolved Time CoV-Risk 03/01/2024 03/01/2024 03/12/2024 1:22 AM EST Resp-Risk 01/16/2025 01/16/2025 documented as of this encounter Care Teams Executive Chairman Of The Board Relationship Specialty Start Date End Date gNuyễn Vance DO PCP - General Internal Medicine 09/16/20 01/15/25 Nguyễn Vance DO [address] [place] [address] PCP - General Internal Medicine 01/16/25 Nguyễn Vance DO Historical LMR Provider 12/13/16 Marko Breaux MD [email or web address] Historical LMR Provider 12/13/16 documented as of this encounter Additional Source Comments The information contained in this document represents components of the legal health record. It is not the complete legal health record.[facility]
--- OUTSIDE RECORDS SUMMARY | 2025-01-22 07:35 | XMS_ITS | Encounter Summary ---
Author Organization [facility] Address [address] [place] [address] Phone Care Team Providers Care Industrial Registered Nurse Name Role Phone Nguyễn Vance DO Unavailable Conor Hdz MD Unavailable [phone] Elgin Ayoub MD Unavailable [phone] Juan Alonso MD Unavailable [phone] Marko Breaux MD Unavailable Bigda, Nguyễn A DO Primary Care Provider [phone] Bigda, Nguyễn A DO Primary Care Provider [phone] Bigda, Nguyễn A DO Primary Care Provider [phone] Reason for Referral * MRI/CAT Scan - Closed Specialty Diagnoses / Procedures Referred By Contac t Referred To Contact Radiology Diagnoses Acute ST elevation myocardial infarction (STEMI) involving other coronary artery of anterior wall Procedures NC Myocardial Perfusion Stress Single NC Myocardial Perfusion Exercise Multiple System, Provider Not In, PhD Formerly [facility] [employer] [address] Referral ID Status Reason Start Date Expiration Date Visits Re quested Visits Authorized [id number] Closed 03/19/2018 04/17/2018 1 1 Encounter Details Date Type Department Care Team (Latest Contact Info) Description 03/21/2018 Ancillary Orders [facility] [address] [facility] [address] [facility] [address] [place] [address] System, Provider Not In, PhD [facility] [address] [place] [address] elevation myocardial infarction (STEMI) involving other coronary artery of anterior wall Social History Tobacco Use Types Packs/Day Years Used Date Smoking Tobacco: Never Assessed Sex and Gender Information Value Date Recorded Sex Assigned at Not on file Legal Sex Male 9:56 PM EDT Gender Identity Not on file Sexual Orientation Not on file documented as of this encounter Plan of Treatment Not on file documented as of this encounter Results * NC Myocardial Perfusion Stress Single (03/19/2018 1:44 PM EST) Nuc Stress EF 49 % LV Systolic Volume Index 62 mL/m2 LV Diastolic Volume Index 120 mL/m2 Anatomical Region Laterality Modality Heart Ultrasound Narrative 03/30/2018 12:39 PM EST There is no evidence of myocardial infarction or ischemia after stress only protocol Normal left ventricular size and function with no regional wall motion abnormalities. Low likelihood of hemodynamically significant coronary artery disease. Low risk study for myocardial events or cardiac in the next two years. Nuclear Study Quality Overall image quality is good. TYPE OF STUDY: Myocardial Perfusion Imaging after exercise utilizing a standard Jorge protocol with gated SPECT. PROTOCOL USED: One day stress protocol only in the supine and prone position. Images were obtained after 20 minutes in gated tomographic technique. Images were processed in SPECT format, reconstructed tomographically and compared [id number] in short axis, horizontal long axis and vertical long axis. DOSE: Technetium 99m Sestamibi 11.8 mCi injected intravenously during stress on 03/19/2018 with post injection scan time of 20 minutes. . There are no artifacts present. Study was successfully gated.. Response to Stress BMI: 28.48 Patient exercised for 12:18 minutes on a standard Jorge protocol achieving 14.5 METs and % MPHR ( BPM). The test was terminated due to fatigue. SUMMARY: 1. RESTING ECG: Sinus francisco j cardia with a rate of [address]/T wave abnormalities. 2. EXERCISE ECG: No ischemic ECG changes with exercise 3. SYMPTOMS: No chest pain, no dizziness 4. PHYSIOLOGY: Appropriate exercise physiology. Resting heart rate of 49 bpm hipolito to a max heart rate of 142 bpm, this represents 90% MPHR. Resting BP of 110/60 hipolito to a max BP of 196/72. Vital signs stable and returned to baseline prior to discharge from the lab. Achieved 14.5 METs consistent with good functional capacity for age. 5. ARRHYTHMIA: Occasional PACs, frequent PVCs, five ventricular couplets at peak exercise. CONCLUSION: Normal ECG portion of nuclear exercise stress test without ECG changes suggestive of ischemia and without symptoms concerning for angina. Appropriate exercise physiology. Good functional capacity. Nuclear images and report to follow. See attached stress report for full details. Tony Turk, GASTROENTEROLOGY NURSE PRACTITIONER- . Stress Function Comments Post-stress ejection fraction was 49%. Stress end diastolic index: 120 mL/m2. Perfusion Scoring Stress Summed Score: 0 Percent Normal: 0.00% The left ventricular perfusion is normal. Procedure Note Vignesh Carey MD / Marko Breaux MD - 03/30/2018 There is no evidence of myocardial infarction or ischemia after stressonly protocol Normal left ventricular size and function with no regional wall motionabnormalities. Low likelihood of hemodynamically significant coronary artery disease. Low risk study for myocardial events or cardiac in the next twoyears. Provider Not In System PhD CV NM CARDIAC Final Result documented in this encounter Visit Diagnoses Diagnosis Acute ST elevation myocardial infarction (STEMI) involving other coronary artery of anterior wall- Primary Acute ST elevation myocardial infarction (STEMI) involving other coronary artery of anterior wall documented in this encounter Additional Health Concerns Infection Onset Date Last Indicated Resolved Time CoV-Risk 10/24/2021 10/24/2021 11/04/2021 1:23 AM EDT CoV-Risk 03/01/2024 03/01/2024 03/12/2024 1:22 AM EST Resp-Risk 01/16/2025 01/16/2025 documented as of this encounter Care Teams Industrial Registered Nurse Relationship Specialty Start Date End Date Nguyễn Vance DO [email or web address] PCP - General 03/02/17 09/15/20 Nguyễn Vance DO [email or web address] PCP - General Internal Medicine 09/16/20 01/15/25 Nguyễn Vance DO [address] [facility] [place] [address] PCP - General Internal Medicine 01/16/25 Nguyễn Vance DO [email or web address] Historical LMR Provider 12/13/16 Conor Hdz MD [address] [address] Historical LMR Provider 12/13/16 2 Elgin Ayoub MD [address] [facility] [address] [place] [address] [email or web address] Historical LMR Provider 12/13/16 03/06/21 Juan Alonso MD 9 [place] [address] Historical LMR Provider 12/13/16 Marko Breaux MD [address] [place] [id number] [email or web address] Historical LMR Provider 12/13/16 documented as of this encounter Additional Source Comments The information contained in this document represents components of the legal health record. It is not the complete legal health record.[facility]
--- OUTSIDE RECORDS SUMMARY | 2025-01-22 07:35 | XMS_ITS | Encounter Summary ---
Author Organization [facility] Address [address] [place] [address] [place] [address] Phone Care Team Providers Care Montessori Paraprofessional Name Role Phone Nguyễn Vance DO Unavailable Marko Breaux MD Unavailable Nguyễn Vance DO Primary Care Provider [phone] Nguyễn Vance DO Primary Care Provider [phone] Encounter Details Date Type Department Care Team (Late st Contact Info) Description 03/01/2022 Procedure Pass [address] [place] [address] Social History Tobacco Use Types Packs/Day Years Used Date Smoking Tobacco: Former Smokeless Tobacco: Never Alcohol Use Standard Drinks/Week Comments Yes 0 (1 standard drink = 0.6 oz pur e alcohol) Sex and Gender Information Value Date Recorded [...] documented as of this encounter Care Teams Montessori Paraprofessional Relationship Specialty Start Date End Date Nguyễn Vance DO [email or web address] PCP - General Internal Medicine 09/16/20 01/15/25 Nguyễn Vance DO [address] [place] [address] PCP - General Internal Medicine 01/16/25 Nguyễn Vance DO [email or web address] Historical LMR Provider 12/13/16 Marko Breaux MD [email or web address] Historical LMR Provider 12/13/16 documented as of this encounter Additional Source Comments The information contained in this document represents components of the legal health record. It is not the complete legal health record.[facility]
--- OUTSIDE RECORDS SUMMARY | 2025-01-22 07:35 | XMS_ITS | Encounter Summary ---
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 Procedures MRI Cervical Spine Nguyễn Vance DO Phone: tel: fax: [email or web address] Referral ID Status Reason Start Date Expiration Date Visits Re quested Visits Authorized [id number] Closed 03/01/2022 03/01/2023 1 1 Encounter Details Date Type Department Care Team (Late st Contact Info) Description 03/01/2022 Transcribe Orders Virtual Department [address] [place] [address] Nguyễn Vance DO [address] [facility] [place] [address] [email or web address] 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 Multilevel foraminal stenosis, moderate to severe at C3-4 and C6-7 on the left. Narrative 03/29/2022 4:10 PM EST MRI CERVICAL SPINE (BONE) WITHOUT CONTRAST TECHNIQUE: MRI CERVICAL SPINE (BONE) WITHOUT CONTRAST Multi-sequence, multi-planar MRI of the cervical spine was performed without intravenous contrast. COMPARISON: XR CERVICAL SPINE 4-5 VIEWS 2022- 14:20:28.000 FINDINGS: Limitation: some sequences are degraded by motion. Vertebrae: No suspicious marrow replacing lesion. No compression fracture. Discs and Endplates: Multilevel disc dessication and height loss with endplate degenerative changes. Spinal Cord: No spinal cord compression or signal abnormality. Soft Tissue: No prevertebral edema. Findings by level: C2-C3: No disc-osteophyte complex. No foraminal stenosis. No spinal canal stenosis. C3-C4: Uncovertebral hypertrophy and posterior disc-osteophyte eccentric to the left. Moderate to severe left foraminal stenosis. No spinal canal stenosis. C4-C5: Uncovertebral hypertrophy and posterior disc-osteophyte. Moderate right, mild left foraminal stenosis. No spinal canal stenosis. C5-C6: Uncovertebral hypertrophy and posterior disc-osteophyte. Moderate bilateral foraminal stenosis. No spinal canal stenosis. C6-C7: Uncovertebral hypertrophy and posterior disc-osteophyte. Mild right, moderate to severe left foraminal stenosis. No spinal canal stenosis. C7-T1: No disc-osteophyte complex. No foraminal stenosis. No spinal canal stenosis. Procedure Note Heather Small MD - 03/29/2022 MRI CERVICAL SPINE (BONE) WITHOUT CONTRAST TECHNIQUE: MRI CERVICAL SPINE (BONE) WITHOUT CONTRAST Multi-sequence, multi-planar MRI of the cervical spine was performedwithout intravenous contrast. COMPARISON: XR CERVICAL SPINE 4-5 VIEWS 2022- 14:20:28.000 FINDINGS: Limitation: some sequences are degraded by motion. Vertebrae: No suspicious marrow replacing lesion. No compressionfracture. Discs and Endplates: Multilevel disc dessication and height loss withendplate degenerative changes. Spinal Cord: No spinal cord compression or signal abnormality. Soft Tissue: No prevertebral edema. Findings by level: C2-C3: No disc-osteophyte complex. No foraminal stenosis. No spinal canalstenosis. C3-C4: Uncovertebral hypertrophy and posterior disc-osteophyte eccentricto the left. Moderate to severe left foraminal stenosis. No spinal canalstenosis. C4-C5: Uncovertebral hypertrophy and posterior disc-osteophyte. Moderateright, mild left foraminal stenosis. No spinal canal stenosis. C5-C6: Uncovertebral hypertrophy and posterior disc-osteophyte. Moderatebilateral foraminal stenosis. No spinal canal stenosis. C6-C7: Uncovertebral hypertrophy and posterior disc-osteophyte. Mildright, moderate to severe left foraminal stenosis. No spinal canalstenosis. C7-T1: No disc-osteophyte complex. No foraminal stenosis. No spinal canalstenosis. IMPRESSION: Multilevel disc and uncovertebral degenerative changes from C3 to C7. Multilevel foraminal stenosis, moderate to severe at C3-4 and C6-7 on theleft. 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 documented in this encounter Additional Health Concerns Infection Onset Date Last Indicated Resolved Time CoV-Risk 03/01/2024 03/01/2024 03/12/2024 1:22 AM EST Resp-Risk 01/16/2025 01/16/2025 documented as of this encounter Care Teams Precision Assembly Inspector Relationship Specialty Start Date End Date Nguyễn Vance DO [email or web address] PCP - General Internal Medicine 09/16/20 01/15/25 Nguyễn Vance DO [address] [place] [address] PCP - General Internal Medicine 01/16/25 Nguyễn Vance DO [email or web address] Historical LMR Provider 12/13/16 Marko Breaux MD [email or web address] Historical LMR Provider 12/13/16 documented as of this encounter Additional Source Comments The information contained in this document represents components of the legal health record. It is not the complete legal health record.[facility]
--- OUTSIDE RECORDS SUMMARY | 2025-01-22 07:36 | XMS_ITS | Encounter Summary ---
Author Organization [facility] Address [address] [place] [address] Phone Care Team Providers Care Immigration Investigator Name Role Phone Rajiv Nguyễn Ojeda DO Unavailable Conor Hdz MD Unavailable [phone] Elgin Ayoub MD Unavailable [phone] Juan Alonso MD Unavailable [phone] Marko Breaux MD Unavailable Bigrebeca, Nguyễn Ojeda DO Primary Care Provider [phone] Bigrebeca, Nguyễn Ojeda DO Primary Care Provider [phone] Bigda, Nguyễn Ojeda DO Primary Care Provider [phone] Encounter Details Date Type Department Care Team (Late st Contact Info) Description 07/07/2020 Transcribe Orders Virtual Department [address] [place] [address] Nguyễn Vance DO [address] [facility] [place] [address] [place] [address] Abdominal aortic aneurysm without rupture (Primary Dx) Social History Tobacco Use Types Packs/Day Years Used Date Smoking Tobacco: Never Assessed Sex and Gender Information Value Date Recorded Sex Assigned at Not on file Legal Sex Male 9:56 PM EDT Gender Identity Not on file Sexual Orientation Not on file documented as of this encounter Plan of Treatment Not on file documented as of this encounter Results * US Abdominal Aortic Screening (07/29/2020 9:21 [...] plaque identified. IMPRESSION: No AAA. us Nguyễn Vance DO IMG US ABDOMEN Final Result documented in this encounter Visit Diagnoses Diagnosis Abdominal aortic aneurysm without rupture- Primary Abdominal aneurysm without mention of rupture Abdominal aortic aneurysm without rupture Abdominal aneurysm without mention of rupture documented in this encounter Additional Health Concerns Infection Onset Date Last Indicated Resolved Time CoV-Risk 10/24/2021 10/24/2021 11/04/2021 1:23 AM EDT CoV-Risk 03/01/2024 03/01/2024 03/12/2024 1:22 AM EST Resp-Risk 01/16/2025 01/16/2025 documented as of this encounter Care Teams Immigration Investigator Relationship Specialty Start Date End Date Nguyễn Vance DO PCP - General 03/02/17 09/15/20 Nguyễn Vance DO PCP - General Internal Medicine 09/16/20 01/15/25 Nguyễn Vance DO [address] [facility] [place] [address] PCP - General Internal Medicine 01/16/25 Nguyễn Vance DO [email or web address] Historical LMR Provider 12/13/16 Conor Hdz MD [address] [address] Historical LMR Provider 12/13/16 2 Elgin Ayoub MD [address] [address] [email or web address] Historical LMR Provider 12/13/16 03/06/21 Juan Alonso MD [address] [place] [address] Historical LMR Provider 12/13/16 Marko Breaux MD [address] [place] [address] [email or web address] Historical LMR Provider 12/13/16 documented as of this encounter Additional Source Comments The information contained in this document represents components of the legal health record. It is not the complete legal health record.[facility]
--- OUTSIDE RECORDS SUMMARY | 2025-01-22 07:36 | XMS_ITS | Encounter Summary ---
Author Organization [facility] Address [address] [facility] [address] [place] [address] Phone Care Team Providers Care Curtain Cutter Hand Name Role Phone MoyNguyễn jose Unavailable Marko Braeux MD Unavailable Bigrebeca, Nguyễn A DO Primary Care Provider [phone] Nguyễn Vance DO Primary Care Provider [phone] Encounter Details Date Type Department Care Team (Late st Contact Info) Description 05/09/2023 Ancillary Orders [facility], X-Ray - [facility] [address] [place] [address] Malissa Tanner PA [address] [facility] [place] [address] [place] [address] Pneumonia due to infectious organism, unspecified laterality, unspecified part of lung (Primary Dx) Social History Tobacco Use Types [...] XR CHEST PA AND LATERAL 2 VIEWS (05/09/2023 12:16 PM EDT) Anatomical Region Laterality Modality Chest Computed Radiogr aphy 05/09/2023 7:23 PM EDT Impressions 05/09/2023 7:24 PM EDT Appropriate clearing of the RIGHT upper lobe pneumonia. Narrative 05/09/2023 7:24 PM EDT XR CHEST PA AND LATERAL 2 VIEWS Referring clinician's provided indication for this examination in Epic: Pneumonia COMPARISON: 04/11/2023 FINDINGS: Devices/Tubes/Lines: None. Lungs: There has been appropriate interval clearing of the RIGHT upper lobe pneumonia Pleura: No evidence of pleural effusion or pneumothorax Heart/Mediastinum: The cardiac silhouette is stable Bones/Soft Tissues: Unchanged Procedure Note Carlos Ramos MD - 05/09/2023 XR CHEST PA AND LATERAL 2 VIEWS Referring clinician's provided indication for this examination in Epic:Pneumonia COMPARISON: 04/11/2023 FINDINGS: Devices/Tubes/Lines: None. Lungs: There has been appropriate interval clearing of the RIGHT upperlobe pneumonia Pleura: No evidence of pleural effusion or pneumothorax Heart/Mediastinum: The cardiac silhouette is stable Bones/Soft Tissues: Unchanged IMPRESSION: Appropriate clearing of the RIGHT upper lobe pneumonia. Malissa ARDON IMG XR CHEST Final Resul t documented in this encounter Visit Diagnoses Diagnosis Pneumonia due to infectious organism, unspecified laterality, unspecified part of lung- Primary Pneumonia due to infectious organism, unspecified laterality, unspecified part of lung documented in this encounter Additional Health Concerns Infection Onset Date Last Indicated Resolved Time CoV-Risk 03/01/2024 03/01/2024 03/12/2024 1:22 AM EST Resp-Risk 01/16/2025 01/16/2025 documented as of this encounter Care Teams Curtain Cutter Hand Relationship Specialty Start Date End Date Nguyễn Vance DO [email or web address] PCP - General Internal Medicine 09/16/20 01/15/25 Nguyễn Vance DO [address] [place] [address] PCP - General Internal Medicine 01/16/25 Nguyễn Vance DO Historical LMR Provider 12/13/16 Marko Breaux MD [email or web address] Historical LMR Provider 12/13/16 documented as of this encounter Additional Source Comments The information contained in this document represents components of the legal health record. It is not the complete legal health record.[facility]
--- OUTSIDE RECORDS SUMMARY | 2025-01-22 07:36 | XMS_ITS | Encounter Summary ---
Author Organization [facility] Address [address] [place] [address] [place] [address] Phone Care Team Providers Care Grease Monkey Name Role Phone Rajiv Nguyễn Ojeda DO Unavailable Marko Breaux MD Unavailable Nguyễn Vance DO Primary Care Provider [phone] Nguyễn Vance DO Primary Care Provider [phone] Encounter Details Date Type Department Care Team (Late st Contact Info) Description 03/01/2022 Transcribe Orders Virtual Department [address] [place] [address] Nguyễn Vance DO [address] [facility] [place] [address] [place] [address] [email or web address] Connective tissue and disc stenosis of intervertebral [...] as of this encounter Results * XR CERVICAL SPINE 4-5 VIEWS (03/25/2022 2:26 PM EST) Anatomical Region Laterality Modality C-spine Computed Radiogr aphy 03/26/2022 11:0 0 PM EST Impressions 03/26/2022 11:02 PM EST Multilevel cervical spine degenerative changes, most pronounced C4-C7. Narrative 03/26/2022 11:02 PM EST XR CERVICAL SPINE 4-5 VIEWS COMPARISON: MRI CERVICAL SPINE (BONE) WITHOUT CONTRAST 13:42:09.000 FINDINGS: ALIGNMENT: No spondylolisthesis. Open-mouth view demonstrates normal alignment of the C1-C2 lateral masses. VERTEBRAE: Vertebral body heights preserved. DISCS: Disc height loss with endplate sclerosis and marginal osteophytes are C4- 5, C5-6, and C6-7. FACETS: Facet arthropathy at all levels. Oblique neuroforaminal views reveal mild to moderate left C3-4 and C6-7 osseous neuroforaminal stenosis. No significant osseous neuroforaminal stenosis on the right. PARASPINAL SOFT TISSUES: Within normal limits. Procedure Note Verito King MD - 03/26/2022 XR CERVICAL SPINE 4-5 VIEWS COMPARISON: MRI CERVICAL SPINE (BONE) WITHOUT CONTRAST [id number]:42:09.000 FINDINGS: ALIGNMENT: No spondylolisthesis. Open-mouth view demonstrates normalalignment of the C1-C2 lateral masses. VERTEBRAE: Vertebral body heights preserved. DISCS: Disc height loss with endplate sclerosis and marginal osteophytesare C4- 5, C5-6, and C6-7. FACETS: Facet arthropathy at all levels. Oblique neuroforaminal viewsreveal mild to moderate left C3-4 and C6-7 osseous neuroforaminalstenosis. No significant osseous neuroforaminal stenosis on the right. PARASPINAL SOFT TISSUES: Within normal limits. IMPRESSION: Multilevel cervical spine degenerative changes, most pronounced C4-C7. 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 documented in this encounter Additional Health Concerns Infection Onset Date Last Indicated Resolved Time CoV-Risk 03/01/2024 03/01/2024 03/12/2024 1:22 AM EST Resp-Risk 01/16/2025 01/16/2025 documented as of this encounter Care Teams Grease Monkey Relationship Specialty Start Date End Date Nguyễn Vance DO [email or web address] PCP - General Internal Medicine 09/16/20 01/15/25 Nguyễn Vance DO [address] [place] [address] PCP - General Internal Medicine 01/16/25 Nguyễn Vance DO [email or web address] Historical LMR Provider 12/13/16 Marko Breaux MD [email or web address] Historical LMR Provider 12/13/16 documented as of this encounter Additional Source Comments The information contained in this document represents components of the legal health record. It is not the complete legal health record.[facility]
[2025-01-22 13:38] LABS: MANUAL DIFF FLAG NO
[2025-01-22 13:50] LABS: Hematocrit 43.4 % (42.0-52.0); Hemoglobin 14.6 g/dl (14.0-18.0); Imm Gran Abs Auto 0.02 X10*3/uL (0.00-0.03); Imm Gran Pct Auto 0.2 % (0.0-0.4); Lymphocytes Absolute Auto 2.4 X10*3/uL (1.2-4.9); Mean Corpuscular HGB Conc 33.6 g/dl (31.0-36.0); Mean Corpuscular Hemoglobin 31.1 pg (27.0-33.0); Mean Corpuscular Volume 92.3 fL (80.0-98.0); NRBC Abs Auto 0.000 X10*3/uL (0.0-0.012); NRBC Pct Auto 0.0 /100WBC (0.0-0.2); Platelet Count 210 X10*3/uL (160-400); Red Blood Count 4.70 X10*6/uL (4.60-5.80); White Blood Count 9.2 X10*3/uL (4.8-10.8)
[2025-01-22 15:01] LABS: Prostate Specific Antigen 0.59 ng/mL (<0.05-4.0)
[2025-01-22 15:15] LABS: Alanine Aminotransferase 31 U/L (0-40); Albumin Level 4.0 g/dL (3.5-5.0); Alkaline Phosphatase 73 U/L (39-117); Anion Gap 12 (12-20); Aspartate Amino Transferase 32 U/L (5-37); Blood Urea Nitrogen 14 mg/dL (9-16); Calcium 8.9 mg/dL (8.4-10.2); Carbon Dioxide 29 mmol/L (22-29); Chloride 105 mmol/L (96-108); Cholesterol 116 mg/dL (<200); Estimated Glomerular Filt Rate > 60; HDL Cholesterol 43 mg/dL (>40); Potassium 4.5 mmol/L (3.3-5.1); Sodium 141 mmol/L (135-145); Total Protein 6.8 g/dL (6.5-8.0)
[2025-01-22 15:41] LABS: Triglycerides 126 mg/dL (<150)
== END 2025-01-22 07:33 | disposition home or self-care (01) ==
LOC: HO.MANLDS 07:32
PROVIDERS: Visit Provider Internal Medicine
DX: Z12.11 Encounter for screening for malignant neoplasm of colon (principal); I10 Essential (primary) hypertension; I25.10 Atherosclerotic heart disease of native coronary artery without angina pectoris; R05.9 Cough, unspecified; Z12.5 Encounter for screening for malignant neoplasm of prostate
CPT/HCPCS: 36415; 80053; 80061; 84153; 85025

== ENCOUNTER 2025-01-23 13:33 | Outpatient (REF) | payer MEDICARE, OTHER, SELFPAY ==
--- OUTSIDE RECORDS SUMMARY | 2022-04-13 15:37 | XMS_ITS | Encounter Summary ---
Author Organization [facility] Address [address] [facility] [address] [place] [address] Phone Care Team Providers Care Tyre Retreader Name Role Phone Moyrebeca Nguyễn Ojeda DO Unavailable Marko Breaux MD Unavailable Nguyễn Vance DO Primary Care Provider [phone] Encounter Details Date Type Department Care Team (Late st Contact Info) Description 04/13/2022 3:37 PM EST Hospital Encounter [facility] [address] [place] [address] Daphne Spangler CNP [address] [place] [address] [email or web address] Social History Tobacco Use Types Packs/Day Years [...] changes as described above. us Daphne Spangler COLLEGE AND CAREER COUNSELOR IMG XR UPPER EXTREMITY Emily l Result documented in this encounter Visit Diagnoses Not on filedocumented in this encounter Additional Health Concerns Infection Onset Date Last Indicated Resolved Time CoV-Risk 03/01/2024 03/01/2024 03/12/2024 1:22 AM EST Resp-Risk 01/16/2025 01/16/2025 documented as of this encounter Care Teams Tyre Retreader Relationship Specialty Start Date End Date Nguyễn Vance DO PCP - General Internal Medicine 09/16/20 01/15/25 Nguyễn Vance DO Historical LMR Provider 12/13/16 Marko Breaux MD [email or web address] Historical LMR Provider 12/13/16 documented as of this encounter Additional Source Comments The information contained in this document represents components of the legal health record. It is not the complete legal health record.[facility]
--- OUTSIDE RECORDS SUMMARY | 2025-01-16 08:37 | XMS_ITS | Encounter Summary ---
Author Organization [facility] Address [address] [facility] [address] [place] [address] Phone Care Team Providers Care Cane Flume Watcher Name Role Phone Moyrebeca Nguyễn Ojeda DO Unavailable Marko Breaux MD Unavailable Nguyễn [place]ance DO Primary Care Provider [phone] Encounter Details Date Type Department Care Team (Late st Contact Info) Description 01/16/2025 8:37 AM EST Hospital Encounter [facility] [address] [place] [address] Daphne Spangler CNP [address] [place] [address] [email or web address] Social History Tobacco Use Types Packs/Day Years [...] report originally createdby Francisco Noguera. Daphne Spangler VIRTUAL ASSISTANT FOR ADVERTISERS IMG XR CHEST Final Resul t documented in this encounter Visit Diagnoses Not on filedocumented in this encounter Additional Health Concerns Infection Onset Date Last Indicated Resolved Time Resp-Risk 01/16/2025 01/16/2025 documented as of this encounter Care Teams Cane Flume Watcher Relationship Specialty Start Date End Date Nguyễn Vance DO [address] [place] [address] PCP - General Internal Medicine 01/16/25 Nguyễn Vance DO [email or web address] Historical LMR Provider 12/13/16 Marko Breaux MD [email or web address] Historical LMR Provider 12/13/16 documented as of this encounter Additional Source Comments The information contained in this document represents components of the legal health record. It is not the complete legal health record.[facility]
[2025-01-27 14:31] LABS: FIT Int Ctl YES; FIT Lot M502755; FIT1 NEGATIVE (NEGATIVE); FIT2 NEGATIVE (NEGATIVE)
--- OUTSIDE RECORDS SUMMARY | 2025-01-27 17:06 | XMS_ITS | Encounter Summary ---
Author Organization [facility] Address [address] [place] [address] [place] [address] Phone Care Team Providers Care Rv Body Mechanic Name Role Phone Nguyễn Vance DO Unavailable Marko Breaux MD Unavailable Nguyễn Vance DO Primary Care Provider [phone] Nguyễn Vance DO Primary Care Provider [phone] Encounter Details Date Type Department Care Team (Late st Contact Info) Description 03/01/2022 Procedure Pass [address] [place] [address] Social History Tobacco Use Types Packs/Day Years [...] documented as of this encounter Care Teams Rv Body Mechanic Relationship Specialty Start Date End Date Nguyễn Vance DO [email or web address] PCP - General Internal Medicine 09/16/20 01/15/25 Nguyễn Vance DO [address] [place] [address] PCP - General Internal Medicine 01/16/25 Nguyễn Vance DO [email or web address] Historical LMR Provider 12/13/16 Marko Breaux MD [email or web address] Historical LMR Provider 12/13/16 documented as of this encounter Additional Source Comments The information contained in this document represents components of the legal health record. It is not the complete legal health record.[facility]
--- OUTSIDE RECORDS SUMMARY | 2025-01-27 17:06 | XMS_ITS | Encounter Summary ---
Author Organization [facility] Address [facility] [address] [place] [address] Phone Care Team Providers Care General Technician Name Role Phone Nguyễn Vance DO Unavailable Conor Hdz MD Unavailable Elgin Ayoub MD Unavailable [phone] Juan Alonso MD Unavailable [phone] Marko Breaux MD Unavailable Bigda, Nguyễn A DO Primary Care Provider [phone] Bigda, Nguyễn A DO Primary Care Provider [phone] Bigda, Nguyễn A DO Primary Care Provider [phone] Encounter Details Date Type Department Care Team (Latest Contact Info) Description 08/08/2018 Transcribe Orders [address] [address] Ashok Villarreal MD, PhD [address] [place] [address] Avitaminosis D (Primary Dx) Social History Tobacco [...] D (TOTAL) 39 30 - 60 ng/mL [facility] Blood 08/08/2018 7:55 AM EDT 08/08/2018 8:42 AM EDT us Ashok Villarreal MD, PhD LAB BLOOD BKR ORDERABLE S Final Result [facility] [address] [place] [address] documented in this encounter Visit Diagnoses Diagnosis Avitaminosis D- Primary Unspecified vitamin D deficiency documented in this encounter Additional Health Concerns Infection Onset Date Last Indicated Resolved Time CoV-Risk 10/24/2021 10/24/2021 11/04/2021 1:23 AM EDT CoV-Risk 03/01/2024 03/01/2024 03/12/2024 1:22 AM EST Resp-Risk 01/16/2025 01/16/2025 documented as of this encounter Care Teams General Technician Relationship Specialty Start Date End Date Nguyễn Vance DO PCP - General 03/02/17 09/15/20 Nguyễn Vance DO PCP - General Internal Medicine 09/16/20 01/15/25 Nguyễn Vance DO [address] [place] [address] PCP - General Internal Medicine 01/16/25 Nguyễn Vance DO Historical LMR Provider 12/13/16 Conor Hdz MD [address] [place] [address] Historical LMR Provider 12/13/16 2 Elgin Ayoub MD [address] [place] [address], [address] [place] [address] [email or web address] Historical LMR Provider 12/13/16 03/06/21 Juan Alonso MD [address] [place] [address] Historical LMR Provider 12/13/16 Marko Breaux MD [address] [place] [address] [email or web address] Historical LMR Provider 12/13/16 documented as of this encounter Additional Source Comments The information contained in this document represents components of the legal health record. It is not the complete legal health record.[facility]
--- OUTSIDE RECORDS SUMMARY | 2025-01-27 17:06 | XMS_ITS | Encounter Summary ---
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 Procedures MRI Cervical Spine Nguyễn Vance DO Phone: tel: fax: [email or web address] Referral ID Status Reason Start Date Expiration Date Visits Re quested Visits Authorized [id number] Closed 03/01/2022 03/01/2023 1 1 Encounter Details Date Type Department Care Team (Late st Contact Info) Description 03/01/2022 Transcribe Orders Virtual Department [address] [place] [address] Nguyễn Vance DO [address] [facility] [place] [address] [email or web address] Connective tissue and disc [...] documented as of this encounter Care Teams Solar Panel Installer Relationship Specialty Start Date End Date Nguyễn Vance DO [email or web address] PCP - General Internal Medicine 09/16/20 01/15/25 Nguyễn Vance DO [address] [place] [address] PCP - General Internal Medicine 01/16/25 Nguyễn Vance DO [email or web address] Historical LMR Provider 12/13/16 Marko Breaux MD [email or web address] Historical LMR Provider 12/13/16 documented as of this encounter Additional Source Comments The information contained in this document represents components of the legal health record. It is not the complete legal health record.[facility]
--- OUTSIDE RECORDS SUMMARY | 2025-01-27 17:06 | XMS_ITS | Encounter Summary ---
Author Organization [facility] Address [address] [place] [address] [place] [address] Phone Care Team Providers Care Shopping Investigator Name Role Phone Nguyễn Vance DO Unavailable Conor Hdz MD Unavailable Elgin Ayoub MD Unavailable [phone] Juan Alonso MD Unavailable [phone] Marko Breaux MD Unavailable Unknown, Unknown MD Primary Care Provider iJmena Vance, Nguyễn A DO Primary Care Provider [phone] Bigda, Nguyễn A DO Primary Care Provider [phone] Bigda, Nguyễn A DO Primary Care Provider [phone] Encounter Details Date Type Department Care Team (Latest Contact Info) Description 02/22/2017 Transcribe Orders [address] [address] Marko Breaux MD [address] [place] [address] [email or web address] myocardial infarction (Primary Dx); Hyperlipidemia, unspecified [...] (02/22/2017 7:42 AM EST) HDL 48 mg/dL [facility] Comment: Interpretation: Risk Level Males Decreased >45 mg/dL Average 40-45 mg/dL Increased <40 mg/dL CHOLESTEROL 176 0 - 240 mg/dL [facility] TRIGLYCERIDES 232(H) 30 - 160 mg/dL [facility] LDL 82 50 - 129 mg/dL [facility] Comment: LDL levels in terms of risk for coronary heart disease: <100 mg/dL: Optimal 100-129 mg/dL: Near or above optimal 130-159 mg/dL: Borderline high 160-189 mg/dL: High >190 mg/dL: Very High CARDIAC RISK RATIO 3.7 3.4 - 5.0 [facility] Blood 02/22/2017 7:42 AM EST 02/22/2017 8:38 AM EST Marko Breaux MD LAB BLOOD BKR ORDERABLES Final R esult [facility] [address] [place] [address] documented in this encounter Visit Diagnoses Diagnosis Old myocardial infarction- Primary Hyperlipidemia, unspecified hyperlipidemia type documented in this encounter Additional Health Concerns Infection Onset Date Last Indicated Resolved Time CoV-Risk 10/24/2021 10/24/2021 11/04/2021 1:23 AM EDT CoV-Risk 03/01/2024 03/01/2024 03/12/2024 1:22 AM EST Resp-Risk 01/16/2025 01/16/2025 documented as of this encounter Care Teams Shopping Investigator Relationship Specialty Start Date End Date Unknown, Unknown, [address] [place] [address] PCP - General 02/22/17 03/01/17 Nguyễn Vance DO PCP - General 03/02/17 09/15/20 Nguyễn Vance DO PCP - General Internal Medicine 09/16/20 01/15/25 Nguyễn Vance DO [address] [facility] [place] [address] PCP - General Internal Medicine 01/16/25 Nguyễn Vance DO Historical LMR Provider 12/13/16 Conor Hdz MD [address] [address] Historical LMR Provider 12/13/16 2 Elgin Ayoub MD [address] [address] [email or web address] Historical LMR Provider 12/13/16 03/06/21 Juan Alonso MD [address] [place] [address] Historical LMR Provider 12/13/16 Marko Breaux MD [address] [place] [address] [email or web address] Historical LMR Provider 12/13/16 documented as of this encounter Additional Source Comments The information contained in this document represents components of the legal health record. It is not the complete legal health record.[facility]
--- OUTSIDE RECORDS SUMMARY | 2025-01-27 17:06 | XMS_ITS | Continuity of Care Document ---
Author Organization [facility] Address [address] [facility] [place] [address] [place] [address] Assessment Encounter Date Assessment Date Assessment LastModified [...] available Lab CMP, serum or plasma 2024 [facility], [address] [place] [address], [address], 01/24/2025 10:40:04 PSA, serum or plasma 2024 025 [facility], [address] [place] [address], [address], 01/21/2025 09:30:42 CBC w/ auto diff 2024 025 [facility], [address] [place] [address], [address], 01/21/2025 09:30:43 hemoglobi n, gastroint estinal, stool 2024 [facility], [address] [facility], [place], [address], 01/21/2025 09:30:43 lipid panel, blood 2024 [facility], [address] [facility], [place], [address], 01/21/2025 09:30:43 Referral None recorded. Procedures None recorded. Surgeries None recorded. Imaging None recorded. Medication Orders azithromy cayla 250 mg tablet 2024 [facility]armacy #[facility], [address] [place], [address], 01/21/2025 09:27:24 Patient TargetsNo targets recorded. Patient Instructions Encounter Date Encounter Id Patient Instructions Last Modified By Organization Details Last Modified Time 01/21/2025 [id number] advance care planning: care instructions Not available [...] observ ation record ed. [facility] [address] [facility], [place], [address], 01/16/2025 10:48:26 Result Notes None recorded. Problems Name Problem SNOMED Code Status Onset Date Resolution Date Notes Provider Name and Address Organization Details Recorded Time Hyperchole sterolemia 07950830 Active 2018 Not Available [facility] 3 11:37:41 Gastroesop hageal reflux disease 131462238 Active 2018 Not Available [facility] 3 11:37:41 Environmen shi allergy 400870575 Active 2018 Not Available [facility] 3 11:37:41 Dilation of esophageal stricture Active 2018 Not Available [facility] 3 11:37:41 Impaired fasting glycemia 464940749 Active 2018 Not Available [facility] 3 11:37:41 Coronary arterioscl erosis 62052651 Active 2018 Not Available [facility] 3 11:37:[address] segment elevation myocardial infarction 463573282 Active 2018 Not Available [facility] 3 11:37:41 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 Active 2018 Not Available [facility] 3 11:37:41 Mobitz type I incomplete atrioventr icular block 02491431 Active 2018 Not Available [facility] 3 11:37:41 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 15817761 Active 2018 Not Available [facility] 3 11:37:41 Primary erectile dysfunctio n 889488367 Active 2021 Not Available [facility] 3 11:37:41 COVID-19 528435025 Active 2021 Not Available [facility] 3 11:37:41 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 219218111 Active 2022 Not Available [facility] 3 11:37:41 Candidiasi s of skin 73733497 Active 2022 Not Available [facility] 3 11:37:41 Pain in throat 591433993 Active 2022 Not Available [facility] 3 11:37:41 Hypertensi ve disorder 46245217 Active 2022 Nguyễn Causey, DO [address] [facility], [place], [address], [facility] 3 14:59:44 Insect bite reaction 698440366 Active 2023 REVA SMITH [address] [place] [address], [phone], [facility] 4 15:19:15 Pyrexia of unknown origin 4857268 Active 2023 REVA SMITH [address] [place] [address], [phone], [facility] 4 15:21:25 Pneumonia 599835634 Active 2023 REVA SMITH [address] [place] [address], [phone], [facility] 4 16:37:29 Cough 61239913 Active 2024 Nguyễn Causey [address], [address], [facility] 5 11:57:30 Erectile dysfunctio n 968727425 Active 2024 Nguyễn Causey [address], [address], [facility] 5 16:03:59 Problem Notes None recorded. Procedures Surgical History Date Name Laterality Status Provider Name and Address Organization Details Recorded Time 04/30/19 22 Colonoscopy completed Nguyễn Causey [address], [address], [facility] 04/29/2021 16:02:19 Imaging Results None recorded. Procedure Notes None recorded. Medical Equipment None Reported. Allergies Allergen ID Allergen Name Allergen Category Reaction Reaction Severity Criticality Documentation Date Start Date Code Code System Note Provider Name and Address Organization Details Recorded Time 79672 melon extract food Not available Not available high 01/21/20252021 45329 10 RxNorm Not Available [employer] - prod 5 03:46:19 89164 walnut allergeni c extract food Not available Not available high 01/21/20252021 69720 0 RxNorm Not Available [employer] - prod 5 03:46:19 [...] completed Not Available Not Available Not Available [facility] spacer INHALE 1 EACH INTO THE LUNGS [...] Address Organization Details Last Updated DateTime 5 47050.8 6 g 29.6 kg/m2 182.88 cm 66 [...] quadrivalent, preservative 01/13/20 21 completed Not Available [facility] 04/04/2022 07:25:49 COVID-19, mRNA, LNP-S, PF, 100 mcg/0.5mL dose or 50 mcg/0.25mL dose 02/23/20 21 completed Not Available [facility] 04/04/2022 07:25:50 Tdap 09/08/19 22 completed Not Available [facility] 04/04/2022 07:25:50 influenza, unspecified formulation 11/03/19 23 completed Nguyễn Causey DO [address] [place] [address], [address], [facility] 11/03/2022 16:30:46 influenza, unspecified formulation 11/13/19 25 completed Nguyễn Causey DO [address] [place] [address], [address], [facility] 01/21/2025 09:20:41 Influenza, split virus, quadrivalent, preservative 03/06/19 19 completed Not Available [facility] 04/04/2022 07:25:49 zoster, unspecified formulation 03/05/19 20 completed Not Available [facility] 04/04/2022 07:25:49 COVID-19, mRNA, LNP-S, PF, 100 mcg/0.5mL dose or 50 mcg/0.25mL dose 05/19/19 21 completed Not Available [facility] 04/04/2022 07:25:50 COVID-19, mRNA, LNP-S, PF, 100 mcg/0.5mL dose or 50 mcg/0.25mL dose 04/20/19 21 completed Not Available [facility] 04/04/2022 07:25:50 zoster, unspecified formulation 08/12/19 20 completed Not Available [facility] 04/04/2022 07:25:50 pneumococcal polysaccharide PPV23 03/18/19 17 completed Not Available [facility] 04/04/2022 07:25:50 Past Encounters Encounter ID Performer Location Encounter Start Date Encounter Closed Date Diagnosis/Indication Diagnosis SNOMED-CT Code Diagnosis ICD10 Code Diagnosis IMO Codes Diagnosis Note [id number] DO [facility] [address] [address],[place] [address] 01/21/2025 08:57:23 01/21/2025 09:33:57 Screening for cardiovascular system disease 572794320 Z13.6 needs lab Screening for malignant neoplasm of colon 147752723 Z12.11 stable Depression screening 171 217342 Z13.31 neg Hypertensive disorder 38 651285 I10 just started on amlodipine 2.5 but doesnt have appt til may Coronary arteriosclerosis 29835853 I25.10 asymptomat ic and has no evid of activity after workup at [facility] Cough 75593050 R05.9 ongoing for 4 weeks needs tx General ex amination of patient 512651205 Z00.01 [id number] doing well Health Concerns Section Related Observation LastModified by Organization Detai ls LastModified Time None Recorded Concern Status LastModified by Organization Details LastModified Time None Recorded Payers Encounter Date Sequence Insurance Name Policy Number Policy Finnegan Covered Member ID Finnegan Member ID Guarantor Name 01/21/2025 1 [place]IC[place] [employer] Rick Carney [id number] Rick Carney 01/21/2025 2 [facility] INDEMNITY PLAN (INDEMNITY) [id number] Sonia Carney [id number] Rick Carney Notes Date Note Type Note [...] and productive cough for 4 weeksseen in cxr neg several weeks ago has had elevated bps lately and also has had meds adjustedhad a holter monitor which showe d extra beats and pauses has a hx of sleep apnea but didnt tolerate the cpap has a home study ordered Nguyễn Causey, DO [address] [facility], [place], [address], [facility] 01/21/2025 09:30:13
--- OUTSIDE RECORDS SUMMARY | 2025-01-27 17:06 | XMS_ITS | Encounter Summary ---
Author Organization [facility] Address [address] [facility] [address] [place] [address] Phone Care Team Providers Care Coordinator Of Rehabilitation Services Name Role Phone Rajiv Nguyễn Ojeda DO Unavailable Marko Breaux MD Unavailable Nguyễn Vance DO Primary Care Provider [phone] Nguyễn Vance DO Primary Care Provider [phone] Encounter Details Date Type Department Care Team (Late st Contact Info) Description 02/08/2023 Procedure Pass [facility] Endoscopy Admitting Dept Virtual Department [address] [place] [address] Social History Tobacco Use Types Packs/Day Years [...] documented as of this encounter Care Teams Coordinator Of Rehabilitation Services Relationship Specialty Start Date End Date Nguyễn Vance DO PCP - General Internal Medicine 09/16/20 01/15/25 Nguyễn Vance DO [address] [place] [address] PCP - General Internal Medicine 01/16/25 Nguyễn Vance DO Historical LMR Provider 12/13/16 Marko Breaux MD [email or web address] Historical LMR Provider 12/13/16 documented as of this encounter Additional Source Comments The information contained in this document represents components of the legal health record. It is not the complete legal health record.[facility]
--- OUTSIDE RECORDS SUMMARY | 2025-01-27 17:06 | XMS_ITS | Encounter Summary ---
Author Organization [facility] Address [address] [place] [address] [place] [address] Phone Care Team Providers Care Marine Fuel Dock Attendant Name Role Phone Nguyễn Vance DO Unavailable Conor Hdz MD Unavailable [phone] Elgin Ayoub MD Unavailable [phone] Juan Alonso MD Unavailable [phone] Marko Breaux MD Unavailable Bigda, Nguyễn A DO Primary Care Provider [phone] Bigda, Nguyễn A DO Primary Care Provider [phone] Bigda, Nguyễn A DO Primary Care Provider [phone] Encounter Details Date Type Department Care Team (Latest Contact Info) Description 10/02/2018 Transcribe Orders [address] [address] Moira Agrawal, SHAHRZAD [address] [place] [address] Atherosclerosis of [place] coronary artery, angina presence unspecified, unspecified whether [place] or transplanted heart (Primary Dx) Social History [...] (10/02/2018 7:31 AM EDT) HDL 57 mg/dL [facility] Comment: Interpretation <40 mg/dL: Low HDL cholesterol (major risk factor for CHD) Greater than or equal to 60 mg/dL: High HDL cholesterol ( negative risk factor for CHD) HDL - cholesterol is affected by a number of factors, e.g. smoking, excerise, hormones, sex and age. CHOLESTEROL 121 0 - 240 mg/dL [facility] TRIGLYCERIDES 88 30 - 160 mg/dL [facility] LDL 46(L) 50 - 129 mg/dL [facility] Comment: LDL levels in terms of risk for coronary heart disease: <100 mg/dL: Optimal 100-129 mg/dL: Near or above optimal 130-159 mg/dL: Borderline high 160-189 mg/dL: High >190 mg/dL: Very High CARDIAC RISK RATIO 2.1(L) 3.4 - 5.0 C [facility] Blood 10/02/2018 7:31 AM EDT 10/02/2018 1:02 PM EDT us Moira Agrawal AUTOMATIC DRY STARCH OPERATOR LAB BLOOD BKR ORDERABLES Final Result Performing Organization Address City/State/[facility] Co de Phone Number [address] [address] documented in this encounter Visit Diagnoses Diagnosis Atherosclerosis of [place] coronary artery, angina presence unspecified, unspecified whether [place] or transplanted heart- Primary documented in this encounter Additional Health Concerns Infection Onset Date Last Indicated Resolved Time CoV-Risk 10/24/2021 10/24/2021 11/04/2021 1:23 AM EDT CoV-Risk 03/01/2024 03/01/2024 03/12/2024 1:22 AM EST Resp-Risk 01/16/2025 01/16/2025 documented as of this encounter Care Teams Marine Fuel Dock Attendant Relationship Specialty Start Date End Date Nguyễn Vance DO PCP - General 03/02/17 09/15/20 Nguyễn Vance DO PCP - General Internal Medicine 09/16/20 01/15/25 Nguyễn Vance DO [address] [facility] [place] [address] PCP - General Internal Medicine 01/16/25 Nguyễn Vance DO Historical LMR Provider 12/13/16 Conor Hdz MD [address] [address] Historical LMR Provider 12/13/16 2 Elgin Ayoub MD [address] [address] [email or web address] Historical LMR Provider 12/13/16 03/06/21 Juan Alonso MD [address] [place] [address] Historical LMR Provider 12/13/16 Marko Breaux MD [address] [place] [address] [email or web address] Historical LMR Provider 12/13/16 documented as of this encounter Additional Source Comments The information contained in this document represents components of the legal health record. It is not the complete legal health record.[facility]
--- OUTSIDE RECORDS SUMMARY | 2025-01-27 17:06 | XMS_ITS | Encounter Summary ---
Author Organization [facility] Address [address] [place] [address] [place] [address] Phone Care Team Providers Care Tissue Technologist Name Role Phone Nguyễn Vance DO Unavailable Conor Hdz MD Unavailable [phone] Elgin Ayoub MD Unavailable Juan Alonso MD Unavailable [phone] Marko Breaux MD Unavailable Bigda, Nguyễn A DO Primary Care Provider [phone] Bigda, Nguyễn A DO Primary Care Provider [phone] Bigda, Nguyễn A DO Primary Care Provider [phone] Encounter Details Date Type Department Care Team (Latest Contact Info) Description 07/11/2017 Transcribe Orders [address] [address] Marko Breaux MD [address] [place] [address] [email or web address] Old myocardial infarction (Primary Dx) Social History [...] (07/11/2017 7:53 AM EDT) HDL 61 mg/dL [facility] Comment: Interpretation: Risk Level Males Decreased >45 mg/dL Average 40-45 mg/dL Increased <40 mg/dL CHOLESTEROL 160 0 - 240 mg/dL [facility] TRIGLYCERIDES 98 30 - 160 mg/dL [facility] LDL 79 50 - 129 mg/dL [facility] Comment: LDL levels in terms of risk for coronary heart disease: <100 mg/dL: Optimal 100-129 mg/dL: Near or above optimal 130-159 mg/dL: Borderline high 160-189 mg/dL: High >190 mg/dL: Very High CARDIAC RISK RATIO 2.6(L) 3.4 - 5.0 C [facility] Blood 07/11/2017 7:53 AM EDT 07/11/2017 8:59 AM EDT us Marko Breaux MD LAB BLOOD BKR ORDERABLES Final R esult Performing Organization Address City/State/[facility] Co de Phone Number [facility] [address] [place] [address] documented in this encounter Visit Diagnoses Diagnosis Old myocardial infarction- Primary documented in this encounter Additional Health Concerns Infection Onset Date Last Indicated Resolved Time CoV-Risk 10/24/2021 10/24/2021 11/04/2021 1:23 AM EDT CoV-Risk 03/01/2024 03/01/2024 03/12/2024 1:22 AM EST Resp-Risk 01/16/2025 01/16/2025 documented as of this encounter Care Teams Tissue Technologist Relationship Specialty Start Date End Date Nguyễn Vance DO [email or web address] PCP - General 03/02/17 09/15/20 Nguyễn Vance DO PCP - General Internal Medicine 09/16/20 01/15/25 Nguyễn Vance DO [address] [facility] [place] [address] PCP - General Internal Medicine 01/16/25 Nguyễn Vance DO [email or web address] Historical LMR Provider 12/13/16 Conor Hdz MD [address] [address] Historical LMR Provider 12/13/16 2 Elgin Ayoub MD [address] [address] [email or web address] Historical LMR Provider 12/13/16 03/06/21 Juan Alonso MD [address] [place] [address] Historical LMR Provider 12/13/16 Marko Breaux MD [address] [place] [address] [email or web address] Historical LMR Provider 12/13/16 documented as of this encounter Additional Source Comments The information contained in this document represents components of the legal health record. It is not the complete legal health record.[facility]
--- OUTSIDE RECORDS SUMMARY | 2025-01-27 17:06 | XMS_ITS | Encounter Summary ---
Author Organization [facility] Address [address] [place] [address] Phone Care Team Providers Care Weather Forcaster Name Role Phone Nguyễn Vance DO Unavailable Conor Hdz MD Unavailable [phone] Elgin Ayoub MD Unavailable [phone] Juan Alonso MD Unavailable Marko Breaux MD Unavailable Bigda, Nguyễn A DO Primary Care Provider [phone] Bigda, Nguyễn A DO Primary Care Provider [phone] Bigda, Nguyễn A DO Primary Care Provider [phone] Encounter Details Date Type Department Care Team (Late st Contact Info) Description 02/06/2019 Transcribe Orders Virtual Department 30 [place] [address] Dorinda Downing, NICK [address] [place] [address] [email or web address] Cough (Primary Dx) Social History [...] documented as of this encounter Care Teams Weather Forcaster Relationship Specialty Start Date End Date Nguyễn Vance DO PCP - General 03/02/17 09/15/20 Nguyễn Vance DO PCP - General Internal Medicine 09/16/20 01/15/25 Nguyễn Vance DO [address] [place] [address] PCP - General Internal Medicine 01/16/25 Nguyễn Vance DO [email or web address] Historical LMR Provider 12/13/16 Conor Hdz MD [address] [place] [address] Historical LMR Provider 12/13/16 2 Elgin Ayoub MD [address] [address] [email or web address] Historical LMR Provider 12/13/16 03/06/21 Juan Alonso MD [address] [place] [address] Historical LMR Provider 12/13/16 Marko Breaux MD [address] [place] [address] [email or web address] Historical LMR Provider 12/13/16 documented as of this encounter Additional Source Comments The information contained in this document represents components of the legal health record. It is not the complete legal health record.[facility]
--- OUTSIDE RECORDS SUMMARY | 2025-01-27 17:06 | XMS_ITS | Encounter Summary ---
Author Organization [facility] Address [address] [place] [address] [place] [address] Phone Care Team Providers Care Unpaid Intern Name Role Phone Nguyễn Vance DO Unavailable Conor Hdz MD Unavailable [phone] Elgin Ayoub MD Unavailable [phone] Juan Alonso MD Unavailable [phone] Marko Breaux MD Unavailable Bigda, Nguyễn A DO Primary Care Provider [phone] Bigda, Nguyễn A DO Primary Care Provider [phone] Bigda, Nguyễn A DO Primary Care Provider [phone] Encounter Details Date Type Department Care Team (Latest Contact Info) Description 08/08/2018 Transcribe Orders [address] [address] Moira Agrawal, SHAHRZAD [address] [place] [address] Atherosclerosis of [place] coronary artery with angina pectoris, unspecified whether [place] or transplanted heart (Primary Dx) Social History [...] (08/08/2018 7:55 AM EDT) HDL 53 mg/dL [facility] Comment: Interpretation <40 mg/dL: Low HDL cholesterol (major risk factor for CHD) Greater than or equal to 60 mg/dL: High HDL cholesterol ( negative risk factor for CHD) HDL - cholesterol is affected by a number of factors, e.g. smoking, excerise, hormones, sex and age. CHOLESTEROL 148 0 - 240 mg/dL [facility] TRIGLYCERIDES 84 30 - 160 mg/dL [facility] LDL 78 50 - 129 mg/dL [facility] Comment: LDL levels in terms of risk for coronary heart disease: <100 mg/dL: Optimal 100-129 mg/dL: Near or above optimal 130-159 mg/dL: Borderline high 160-189 mg/dL: High >190 mg/dL: Very High CARDIAC RISK RATIO 2.8(L) 3.4 - 5.0 C [facility] Blood 08/08/2018 7:55 AM EDT 08/08/2018 8:42 AM EDT us Moira Agrawal FLAT SPRING ASSEMBLER LAB BLOOD BKR ORDERABLES Final Result Performing Organization Address City/State/[facility] Co de Phone Number [address] [phone] documented in this encounter Visit Diagnoses Diagnosis Atherosclerosis of [place] coronary artery with angina pectoris, unspecified whether [place] or transplanted heart- Primary documented in this encounter Additional Health Concerns Infection Onset Date Last Indicated Resolved Time CoV-Risk 10/24/2021 10/24/2021 11/04/2021 1:23 AM EDT CoV-Risk 03/01/2024 03/01/2024 03/12/2024 1:22 AM EST Resp-Risk 01/16/2025 01/16/2025 documented as of this encounter Care Teams Unpaid Intern Relationship Specialty Start Date End Date Nguyễn Vance DO PCP - General 03/02/17 09/15/20 Nguyễn Vance DO PCP - General Internal Medicine 09/16/20 01/15/25 Nguyễn Vance DO [address] [facility] [place] [address] PCP - General Internal Medicine 01/16/25 Nguyễn Vance DO Historical LMR Provider 12/13/16 Conor Hdz MD [address] [address] Historical LMR Provider 12/13/16 2 Elgin Ayoub MD [address] [address] [email or web address] Historical LMR Provider 12/13/16 03/06/21 Juan Alonso MD [address] [place] [address] Historical LMR Provider 12/13/16 Marko Breaux MD [address] [place] [address] [email or web address] Historical LMR Provider 12/13/16 documented as of this encounter Additional Source Comments The information contained in this document represents components of the legal health record. It is not the complete legal health record.[facility]
--- OUTSIDE RECORDS SUMMARY | 2025-01-27 17:06 | XMS_ITS | Encounter Summary ---
Author Organization [facility] Address [address] [place] [address] Phone Care Team Providers Care Microarray Specialist Name Role Phone MoyNguyễn jose Unavailable Marko Breaux MD Unavailable Bigrebeca, Nguyễn Ojeda DO Primary Care Provider Nguyễn Vance DO Primary Care Provider [phone] Encounter Details Date Type Department Care Team (Late st Contact Info) Description 04/11/2023 Ancillary Orders [facility], X-Ray - [facility] [address] [place] [address] Malissa Tanner PA [address] [facility] [place] [address] [place] [address] Fever presenting with conditions classified elsewhere (Primary [...] clinician's provided indication for this examination in [facility]: Fever COMPARISON: February 06, 2019 FINDINGS: Lungs: Right upper lobe consolidation most consistent with pneumonia. Pleura: No pleural effusion. No pneumothorax Heart/Mediastinum: Heart size normal. Bones/Soft Tissues: No acute finding Procedure Note Sourav Thomas MD, ANATOLY - 04/11/2023 XR CHEST PA AND LATERAL 2 VIEWS Referring clinician's provided indication for this examination in [facility]:Fever COMPARISON: February 06, 2019 FINDINGS: Lungs: Right [...] documented as of this encounter Care Teams Microarray Specialist Relationship Specialty Start Date End Date Nguyễn Vance DO [email or web address] PCP - General Internal Medicine 09/16/20 01/15/25 Nguyễn Vance DO [address] [place] [address] PCP - General Internal Medicine 01/16/25 Nguyễn Vance DO [email or web address] Historical LMR Provider 12/13/16 Marko Breaux MD [email or web address] Historical LMR Provider 12/13/16 documented as of this encounter Additional Source Comments The information contained in this document represents components of the legal health record. It is not the complete legal health record.[facility]
--- OUTSIDE RECORDS SUMMARY | 2025-01-27 17:07 | XMS_ITS | Encounter Summary ---
Author Organization [facility] Address [address] [place] [address] Phone Care Team Providers Care Prosthodontist Name Role Phone Nguyễn Vance DO Unavailable Conor Hdz MD Unavailable [phone] Elgin Ayoub MD Unavailable [phone] Juan Alonso MD Unavailable [phone] [...] Exercise Multiple System, Provider Not In, PhD [facility] [employer] [address] Referral ID Status Reason Start Date Expiration Date Visits Re quested Visits Authorized [id number] Closed 03/19/2018 04/17/2018 1 1 Encounter Details Date Type Department Care Team (Latest Contact Info) Description 03/21/2018 Ancillary Orders [facility] [address] [facility] [address] [facility], [address] [place] [address] System, Provider Not In, PhD [employer] [address] [place] [address] elevation myocardial infarction (STEMI) involving [...] in SPECT format, reconstructed tomographically and compared [id number] in short axis, horizontal long axis and [...] stress report for full details. Tony Turk, INSOLE AND HEEL STIFFENER- . Stress Function Comments Post-stress ejection fraction [...] documented as of this encounter Care Teams Prosthodontist Relationship Specialty Start Date End Date Nguyễn Vance DO [email or web address] PCP - General 03/02/17 09/15/20 Nguyễn Vance DO [email or web address] PCP - General Internal Medicine 09/16/20 01/15/25 Nguyễn Vance DO 179 [facility] [place] [address] PCP - General Internal Medicine 01/16/25 Nguyễn Vance DO [email or web address] Historical LMR Provider 12/13/16 Conor Hdz MD [address] [address] Historical LMR Provider 12/13/16 2 Elgin Ayoub MD 22 [facility] [address] [place] [address] [email or web address] Historical LMR Provider 12/13/16 03/06/21 Juan Alonso MD 9 [place] [address] Historical LMR Provider 12/13/16 Marko Breaux MD [address] [place] [address] [email or web address] Historical LMR Provider 12/13/16 documented as of this encounter Additional Source Comments The information contained in this document represents components of the legal health record. It is not the complete legal health record.[facility]
--- OUTSIDE RECORDS SUMMARY | 2025-01-27 17:07 | XMS_ITS | Encounter Summary ---
Author Organization [facility] Address [address] [place] [address] Phone Care Team Providers Care Material Reclaimer Name Role Phone Rajiv Nguyễn Ojeda DO Unavailable Conor Hdz MD Unavailable [phone] Elgin Ayoub MD Unavailable [phone] Juan Alonso MD Unavailable [phone] Marko Breaux MD Unavailable BigNguyễn jose DO Primary Care Provider [phone] Bigrebeca, Nguyễn Ojeda DO Primary Care Provider [phone] Bigda, Nguyễn Ojeda DO Primary Care Provider [phone] Encounter Details Date Type Department Care Team (Late st Contact Info) Description 07/07/2020 Transcribe Orders Virtual Department 30 [place] [address] Nguyễn Vance DO 179 [facility] [place] [address] [place] [address] Abdominal aortic aneurysm without rupture (Primary Dx) [...] documented as of this encounter Care Teams Material Reclaimer Relationship Specialty Start Date End Date Nguyễn Vance DO PCP - General 03/02/17 09/15/20 Nguyễn Vance DO PCP - General Internal Medicine 09/16/20 01/15/25 Nguyễn Vance DO [address] [facility] [place] [address] PCP - General Internal Medicine 01/16/25 Nguyễn Vance DO [email or web address] Historical LMR Provider 12/13/16 Conor Hdz MD [address] [address] Historical LMR Provider 12/13/16 2 Elgin Ayoub MD [address] [address] [email or web address] Historical LMR Provider 12/13/16 03/06/21 Juan Alonso MD [address] [place] [address] Historical LMR Provider 12/13/16 Marko Breaux MD [address] [place] [address] [email or web address] Historical LMR Provider 12/13/16 documented as of this encounter Additional Source Comments The information contained in this document represents components of the legal health record. It is not the complete legal health record.[facility]
--- OUTSIDE RECORDS SUMMARY | 2025-01-27 17:07 | XMS_ITS | Clinical Summary ---
Author Organization [facility] Address [address] [place] [address] Phone Care Team Providers Care Infantry Officer Name Role Phone Nguyễn Vance DO Unavailable Marko Breaux MD Unavailable Nguyễn Vance DO Primary Care Provider Allergies Active Allergy Reactions Criticality Noted Date Comments Melon Throat Tightness Medium 12/29/2021 Ewing Throat Tightness Medium 12/29/2021 Medications omeprazole (PRILOSEC) 20 MG capsule Take 40 mg by mouth daily. 05/19/19 11 Active fluticasone propionate (FLONASE) 50 mcg/actuation nasal spray 2 sprays by Each Nare route daily. 08/14/19 11 Active aspirin 81 MG EC tablet Take 81 mg by mouth daily. Active rosuvastatin (CRESTOR) 20 MG tabletIndicati ons:Atheroscle rosis of [place] coronary artery of [place] heart without angina pectoris TAKE 1 TABLET [...] 18 g 10/25/19 22 Active [facility] Spcr 1 EACH BY SEE ADMINISTRATION [...] PAC (premature atrial contraction) 06/20/2019 Atherosclerosis of [place] co ronary artery of [place] heart without angina pectoris 10/25/2018 Displacement of cervical intervertebral disc 10/[address] segment elevation myocardial infarction 03/05/2018 Environmental allergies 03/05/2018 Hypercholesterolemia 03/05/2018 Gastroesophageal reflux disease 03/05/2018 Impaired fasting glucose 03/05/2018 Mobitz type I incomplete atrioventricular block 03/05/2018 Sinus bradycardia 03/05/2018 Status post dilation of esophageal narrowing 08/2018 Encounters Date Type Department Care Team Description 01/16/2025 8:37 AM EST Hospital Encounter [facility] [address] [place] [id number] Daphne Spangler CNP 01/16/2025 8:10 AM EST Office Visit [facility] at [address] [address] Marnie Michael, Daphne Castro CNP Acute cough [...] clinician's provided indication for this examination in [facility]: Cough COMPARISON: XR CHEST PA AND LATERAL [...] clinician's provided indication for this examination in [facility]:Cough COMPARISON: XR CHEST PA AND LATERAL 2 [...] report originally createdby Francisco Noguera. Daphne Spangler FILM EDITOR SUPERVISOR IMG XR CHEST Final Resul t * POCT SARS-CoV-2, Influenza A/B, RSV, PCR (01/16/2025 8:27 AM EST) SARS-Cov-2 PCR Negative Negative 01/16/2025 9:08 AM EST [facility] Influenza A Negative Negative 01/16/2025 9:08 AM EST [facility] Influenza B Negative Negative 01/16/2025 9:08 AM EST [facility] RSV PCR Negative Negative 01/16/2025 9:08 AM EST [facility] Swab (Anterior Nares) 01/16/2025 8:27 AM EST 01/16/2025 9:08 AM EST us Marnie Michael FILM EDITOR SUPERVISOR LAB POCT DOCKED DEVICE UNSOLICTED RESULTS Final Result [facility] [address] [address], [facility] [phone] * COLONOSCOPY FOR RESULT ENTRY ONLY (07/02/2024) HM Colonoscopy External us Historical Provider MD HEALTH MAINTENANCE Final Result * Basic metabolic panel (03/10/2021 10:37 AM EST) SODIUM 140 133 - 146 mmol/L [facility] CHLORIDE 100 96 - 108 mmol/L [facility] POTASSIUM 4.2 3.3 - 5.1 mmol/L [facility] Comment:Specimen slightly he molyzed, result may be falsely elevated. CO2 29 21 - 35 mmol/L [facility] BUN 17 6 - 19 mg/dL [facility] CREATININE 0.80 0.5 - 1.5 mg/dL [facility] GLUCOSE 76 70 - 99 mg/dL [facility] CALCIUM 9.7 8.4 - 10.3 mg/dL [facility] EGFR 98 >59 mL/min/1.7 3m2 [facility] Comment:Estimated glomerular filtration rate calculated using the CKD-EPI refit equation. ANION GAP 15 10 - 20 mmol/L [facility] Blood 03/10/2021 10:3 7 AM EST 03/10/2021 10:40 AM EST us Marko Breaux MD LAB BLOOD BKR ORDERABLES Final R esult [facility] [address] [place] [address] * US Abdominal Aortic Screening (07/29/2020 9:21 [...] Date Last Indicated Resp-Risk 01/16/2025 01/16/[address] [facility] EXTENSION MEDICARE SUPPLEMENT MEDICARE PART A & B [facility] EXTENSION MEDICARE SUPPLEMENT MEDICARE PART A & B [employer] [facility] EXTENSION MEDICARE SUPPLEMENT MEDICARE PART A & B [facility] EXTENSION MEDICARE SUPPLEMENT MEDICARE PART A & B [employer] MEDICARE SUPPLEMENT MEDICARE PART A & B [employer]ION MEDICARE SUPPLEMENT MEDICARE PART A & B [facility] MEDICARE SUPPLEMENT MEDICARE PART A & B Member Subscriber Plan / Payer (Ef fective 2019-Present) Name:Rick Carney Member ID:[id number] Relation to Subscriber:Self Name:Angelika Rick Subscriber ID:[id number] Payer ID:[id number] Group ID:Not on file Type:Medicare Address: [facility] [id number] [facility] MEDICARE SUPPLEMENT MEDICARE PART A & B Member Subscriber Plan / Payer (Ef fective 2019-Present) Name:Rick Carney Member ID:[id number] Relation to Subscriber:Self Name:Rick Carney Subscriber ID:[id number] Payer ID:[id number] Group ID:Not on file Type:Medicare Address: [facility] [address] [place] [id number] [employer] MEDICARE SUPPLEMENT MEDICARE PART A & B Care Teams Infantry Officer Relationship Specialty Start Date End Date Nguyễn Vance DO [address] [place] [address] [place] [address] PCP - General Internal Medicine 01/16/25 Nguyễn Vance DO [email or web address] Historical LMR Provider 12/13/16 Marko Breaux MD [email or web address] Historical LMR Provider 12/13/16 Additional Source Comments The information contained in this document represents components of the legal health record. It is not the complete legal health record.[facility]
--- OUTSIDE RECORDS SUMMARY | 2025-01-27 17:07 | XMS_ITS | Encounter Summary ---
Author Organization [facility] Address [address] [place] [address] [place] [address] Phone Care Team Providers Care Tie Hacker Name Role Phone Rajiv Nugyễn Ojeda DO Unavailable Marko Breaux MD Unavailable Nguyễn Vance DO Primary Care Provider [phone] Nguyễn Vance DO Primary Care Provider [phone] Encounter Details Date Type Department Care Team (Late st Contact Info) Description 03/01/2022 Transcribe Orders Virtual Department [address] [place] [address] Nguyễn Vance DO [address] [facility] [place] [address] [place] [address] [email or web address] 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 Open-mouth view demonstrates [...] documented as of this encounter Care Teams Tie Hacker Relationship Specialty Start Date End Date Nguyễn Vance DO [email or web address] PCP - General Internal Medicine 09/16/20 01/15/25 Nguyễn Vance DO [address] [place] [address] PCP - General Internal Medicine 01/16/25 Nguyễn Vance DO [email or web address] Historical LMR Provider 12/13/16 Marko Breaux MD [email or web address] Historical LMR Provider 12/13/16 documented as of this encounter Additional Source Comments The information contained in this document represents components of the legal health record. It is not the complete legal health record.[facility]
--- OUTSIDE RECORDS SUMMARY | 2025-01-27 17:07 | XMS_ITS | Data Portability ---
Author Organization [facility], Telehealth Patient Home Address [address] [place] [address] Assessment Encounter Date Assessment Date Assessment LastModified [...] available Lab CMP, serum or plasma 2024 025 [facility], [address] [place] [address], [id number], 01/24/2025 10:40:04 PSA, serum or plasma 2024 025 [facility], [address] [place] [address], [id number], 01/21/2025 09:30:42 CBC w/ auto diff 2024 025 [facility], [address] [place] [address], [address], 01/21/2025 09:30:43 hemoglobi n, gastroint estinal, stool 2024 025 [facility], [address] [place] [address], [address], 01/21/2025 09:30:43 lipid panel, blood 2024 025 [facility], [address] [place] [address], [address], 01/21/2025 09:30:43 lipid panel, blood 2023 024 [facility], [address] [place] [address], [address], 01/01/2024 11:48:26 hemoglobi n, gastroint estinal, stool 2023 024 [facility], [address] [place] [address], [address], 12/27/2023 14:48:36 CBC w/ auto diff 2023 024 [facility], [address] [place] [address], [address], 01/01/2024 11:48:27 CMP, serum or plasma 2023 [facility], [address] [place] [address], [address], 01/01/2024 11:48:26 culture, blood 2023 [facility], [address] [place] [address], [address], 04/13/2023 12:34:00 lyme disease igg+igm, serum, reflex western blot 2023 [facility], [address] [place] [address], 239[address], 04/10/2023 15:25:09 rickettsi al antibody panel, serum 2023 024 [facility], [address] [place] [address], 10[address], 04/10/2023 15:25:09 ehrlichia Ab, serum 2023 024 [facility], [address] [place] [address], [address], 04/14/2023 11:16:06 anaplasma phagocyto philum + ehrlichia chaffeens is IgG + IgM panel, serum 2023 024 [facility], [address] [place] [address], 6[address], 04/20/2023 15:21:44 dengue fever Ab, serum 2023 024 [facility], [address] [place] [address], [address], 04/21/2023 11:35:59 chikungun ya virus Ab IgM + IgG panel, serum 2023 024 [facility], [address] [place] [address], [place], [address], 04/10/2023 15:25:09 malaria, igg Ab, serum 2023 [facility], [address] [place] [address], [address], 04/10/2023 15:25:09 CBC w/ auto diff 2023 [facility], [address] [place] [address], [address], 04/11/2023 11:19:11 C-reactiv e protein, quantitat benja, serum or plasma 2023 [facility], [address] [place] [address], 377[address], 04/10/2023 15:25:08 erythrocy te sedimenta tion rate by westergre n method 2023 [facility], [address] [place] [address], [address], 04/10/2023 15:25:09 culture, urine 2023 [facility], [address] [place] [address], [address], 04/13/2023 11:46:27 zika virus Ab, IgG, QN, serum 2023 [facility], [address] [place] [address], [address], 04/10/2023 15:25:08 Referral physical therapist referral 2023 [facility], [facility] Rafael Fernández, ENRIKE Vaughan, [address], 01/03/2024 09:06:15 Procedures None recorded. Surgeries None recorded. Imaging XR, chest, 2 view 2023 024 [email or web address] Not available 04/12/2023 11:58:54 US, echocardi ogram - fever of unknown origin, hx of myocardit is, elevated BP and tachycard ia 2023 024 [facility], [address] [place], [address], 04/12/2023 16:22:23 Medication Orders azithromy cayla 250 mg tablet 2024 025 [facility]acy #2024, [address] [place], [address], 01/21/2025 09:27:24 ciproflox acin 500 mg tablet 2023 024 [facility] #2024, [address] [place], [address], 12/27/2023 14:36:59 Patient TargetsNo targets recorded. Patient Instructions Encounter Date Encounter Id Patient Instructions Last Modified By Organization Details Last Modified Time 12/27/2023 [id number] cervical disc disease: care instructions Not available 12/27/2023 15:05:51 advance care planning: care instructions Not available 12/27/2023 14:47:09 Discussed and explained advance directives such as standard forms to the patient. Face to face discussion lasted for a duration of 13___ minutes. Not available 12/27/2023 14:47:00 01/21/2025 [id number] advance care planning: care instructions Not available [...] 2 view No observ ation record ed. [address], [address], 12/27/2023 14:46:00 04/18/19 24 04/18/2023 , echoc ardio gram No observ ation record ed. [facility] (Medical Records) [address] [place], [address], 12/27/2023 14:46:00 05/09/19 24 05/09/2023 XR, chest , 2 view No observ ation record ed. [address], [address], 12/27/2023 14:46:00 01/17/20 25 01/16/2025 XR, chest , 2 view No observ ation record ed. [facility] [address], [address], 01/16/2025 10:48:26 Result Notes None recorded. Problems Name Problem SNOMED Code Status Onset Date Resolution Date Notes Provider Name and Address Organization Details Recorded Time Hyperchole sterolemia 14439953 Active 2018 Not Available [facility] 3 11:37:41 Gastroesop hageal reflux disease 248878200 Active 2018 Not Available [facility] 3 11:37:41 Environmen shi allergy 694076492 Active 2018 Not Available [facility] 3 11:37:41 Dilation of esophageal stricture Active 2018 Not Available [facility] 3 11:37:41 Impaired fasting glycemia 990154482 Active 2018 Not Available [facility] 3 11:37:41 Coronary arterioscl erosis 32045324 Active 2018 Not Available [facility] 3 11:37:[address] segment elevation myocardial infarction 248046555 Active 2018 Not Available [facility] 3 11:37:41 Sinus bradycardi a 63770709 Active 2018 Not Available [facility] 3 11:37:41 Mobitz type I incomplete atrioventr icular block 61751923 Active 2018 Not Available [facility] 3 11:37:41 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 67979650 Active 2018 Not Available [facility] 3 11:37:41 Primary erectile dysfunctio n 359138977 Active 2021 Not Available [facility] 3 11:37:41 COVID-19 320410837 Active 2021 Not Available [facility] 3 11:37:41 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 525219764 Active 2022 Not Available [facility] 3 11:37:41 Candidiasi s of skin 40583298 Active 2022 Not Available [facility] 3 11:37:41 Pain in throat 735345050 Active 2022 Not Available [facility] 3 11:37:41 Hypertensi ve disorder 18678339 Active 2022 Nguyễn Causey, [address] [place], [address], [facility] 3 14:59:44 Insect bite reaction 714587983 Active 2023 REVA SMITH [address] [place], [address], [facility] 4 15:19:15 Pyrexia of unknown origin 7348759 Active 2023 REVA SMITH [address] [place], [address], [facility] 4 15:21:25 Pneumonia 997340671 Active 2023 REVA SMITH [address] [place], [address], [facility] 4 16:37:29 Cough 70615392 Active 2024 Nguyễn Causey, DO [address] [place], [address], [facility] 5 11:57:30 Erectile dysfunctio n 157713595 Active 2024 Nguyễn Causey, DO [address] [place] [address], [address], [facility] 5 16:03:59 Problem Notes None recorded. Procedures Surgical History Date Name Laterality Status Provider Name and Address Organization Details Recorded Time 04/30/19 22 Colonoscopy completed Nguyễn Causey, DO [address] [place] [address], [address], [facility] 04/29/2021 16:02:19 Imaging Results None recorded. Procedure Notes None recorded. Medical Equipment None Reported. Allergies Allergen ID Allergen Name Allergen Category Reaction Reaction Severity Criticality Documentation Date Start Date Code Code System Note Provider Name and Address Organization Details Recorded Time 14101 melon extract food Not available Not available [facility] 01/21/20252021 68564 10 RxNorm Not Available [employer] - prod 03:46:19 49310 walnut allergeni c extract food Not available Not available [facility] 01/21/20252021 13526 0 RxNorm Not Available [employer] - prod 03:46:19 No known [...] Available Not Available Not Available Soniya Kearns [facility] spacer INHALE 1 EACH INTO THE LUNGS [...] Updated DateTime 4 184.15 cm 29.2 kg/m2 20504.1 4 g 46 /min 98 % 124/70 mm[Hg] Xiang Amado [facility] 4 14:39:08 Date Recorded Body weight Body mass index (BMI) Body height Heart rate Oxygen saturation Systolic And Diastolic Provider Name and Address Organization Details Last Updated DateTime 5 90050.8 6 g 29.6 kg/m2 182.88 cm 66 /min 95 % 142/66 mm[Hg] Keke Davis [facility] 5 09:03:20 Social History Question Answer Notes LastModified by Organizat ion Details LastModified Time Tobacco Smoking Status Former Smoker Not Available [facility] 12/31/2019 03:36:24 What Was The Date Of [...] quadrivalent, preservative 01/13/20 21 completed Not Available [facility] 04/04/2022 07:25:49 COVID-19, mRNA, LNP-S, PF, 100 mcg/0.5mL dose or 50 mcg/0.25mL dose 02/23/20 21 completed Not Available [facility] 04/04/2022 07:25:50 Tdap 09/08/19 22 completed Not Available [facility] 04/04/2022 07:25:50 influenza, unspecified formulation 11/03/19 23 completed Nguyễn Causey DO [address] [place] [address], [address], [facility] 11/03/2022 16:30:46 influenza, unspecified formulation 11/13/19 25 completed Nguyễn Causey DO [address] [place] [address], [address], [facility] 01/21/2025 09:20:41 Influenza, split virus, quadrivalent, preservative 03/06/19 19 completed Not Available [facility] 04/04/2022 07:25:49 zoster, unspecified formulation 03/05/19 20 completed Not Available [facility] 04/04/2022 07:25:49 COVID-19, mRNA, LNP-S, PF, 100 mcg/0.5mL dose or 50 mcg/0.25mL dose 05/19/19 21 completed Not Available [facility] 04/04/2022 07:25:50 COVID-19, mRNA, LNP-S, PF, 100 mcg/0.5mL dose or 50 mcg/0.25mL dose 04/20/19 21 completed Not Available [facility] 04/04/2022 07:25:50 zoster, unspecified formulation 08/12/19 20 completed Not Available [facility] 04/04/2022 07:25:50 pneumococcal polysaccharide PPV23 03/18/19 17 completed Not Available [facility] 04/04/2022 07:25:50 Past Encounters Encounter ID Performer Location Encounter Start Date Encounter Closed Date Diagnosis/Indication Diagnosis SNOMED-CT Code Diagnosis ICD10 Code Diagnosis IMO Codes Diagnosis Note [id number] Nguyễ[address] DO [facility] [address] [facility],[place] [address] 03/06/2018 11:24:19 03/06/2018 11:54:34 Coronary arteriosclerosis 96470443 I25.10 asymptomat ic and has no evid of activity after workup at [facility] Dizziness 541709844 R42 currently is asymptomat ic Degenerati on of cervical intervertebral disc 13127811 M50.30 will need to refer to a neurologis t in [facility] [place] request [id number] Nguyễn Causey [facility] [address] [place] [address],[place] [address] 09/04/2018 10:25:38 09/04/2018 12:10:37 Adult health examination 755045889 Z00.00 Active or passive immunization 881190941 Z23 [id number] Nguyễn Causey DO [facility] [address] [place] [address],[place] [address] 01/23/2019 09:48:43 01/23/2019 10:26:05 Asthmatic bronchitis 704921217 J45.909 Ongoing 3 weeks, productive cough, expiratory wheeze [id number] Nguyễn Causey DO [facility] [address] [place] [address],[place] [address] 02/06/2019 13:58:03 02/06/2019 15:17:25 Cough 90357511 R05 ? pna vs PRAD repeat steroid FQ abx Active or passive immunization 987016476 Z23 Gastroesop hageal reflux disease 840271344 K21.9 continue omeprazole [id number] Nguyễn Causey [facility] [address] [place] [address],[place] [address] 07/07/2020 08:52:39 07/07/2020 10:06:40 Active or passive immunization 875862883 Z23 utd Adult heal th examination 493414921 Z00.00 doing well Abdominal aortic aneurysm 758879030 I71.4 will order Displaceme nt of cervical intervertebral disc without myelopathy 84343093 M50.20 [id number] Causey DO [facility] [address] [facility],[place] [address] 08/04/2021 13:36:26 08/04/2021 15:36:47 Abdominal aortic aneurysm 354179344 I71.4 will order Active or passive immunization 635440411 Z23 patient advised he is due for tdap & pneu 13 Adult heal th examination 194476260 Z00.00 doing well Advance care planning 71 2595267 Z71.89 done [id number] Nguyễn Causey [facility] [address] [facility],[place] [facility] [place] [address] 12/21/2022 14:26:32 12/21/2022 16:24:46 Adult health examination 338102134 Z00.01 doing well Screening for cardiovascular system disease 620141599 Z13.6 Screening for malignant neoplasm of colon 068067621 Z12.11 Hypercholesterolemia 136 40005 E78.00 will have him get lab [id number] Nguyễn Causey [facility] [address] [facility], [place] [facility] [place] [address] 04/10/2023 11:05:43 04/11/2023 10:11:05 [id number] Nguyễn Causey [facility] [address] [facility],[place] [address] 04/10/2023 13:28:59 04/10/2023 15:40:10 Insect bite reaction 955915545 T63.481A will set up with lab testing given bite by insect and symptoms, and area of concern that he was in when he got the bite Exposure t o Zika virus 7927424194 9276129 Z20.821 will set up with evaluation Pyrexia of unknown origin 4596899 R50.81 will set up with lab work and screening [id number] Nguyễn Causey [facility] [address] [facility], [place] [address] 04/11/2023 14:20:21 04/12/2023 11:58:54 Pyrexia of unknown origin 8232115 R50.81 will set up with lab work and screening History of myocarditis 4081870394 69133 Z86.79 will fu with US echowould like CXR first, pt awarewill fu tomorrow [id number] Nguyễn Causey [facility] [address] [facility],[place] [address] 12/27/2023 14:30:32 12/27/2023 15:23:34 Adult health examination 765064103 Z00.00 doing well Screening for cardiovascular system disease 041341988 Z13.6 Screening for malignant neoplasm of colon 497177153 Z12.11 stable Depression screening 171 341622 Z13.31 neg Displaceme nt of cervical intervertebral disc without myelopathy 34481686 M50.20 needs [place] [id number] Nguyễn Causey, [facility] [address] [facility],[place] [address] 01/21/2025 08:57:23 01/21/2025 09:33:57 Screening for cardiovascular system disease 801213890 Z13.6 needs lab Screening for malignant neoplasm of colon 461626645 Z12.11 stable Depression screening 171 883282 Z13.31 neg Hypertensive disorder 38 676136 I10 just started on amlodipine 2.5 but doesnt have appt til may Coronary arteriosclerosis 44103927 I25.10 asymptomat ic and has no evid of activity after workup at [facility] Cough 99917361 R05.9 ongoing for 4 weeks needs tx General ex amination of patient 376184329 Z00.01 10476798 doing well Health Concerns Section Related Observation LastModified by Organization Detai ls LastModified Time None Recorded Concern Status LastModified by Organization Details LastModified Time None Recorded Advance Directives Directive None Recorded Payers Insurance Date Sequence Insurance Name Policy Number Policy Finnegan Covered Member ID Finnegan Member ID Guarantor Name 01/21/2025 1 [place] [employer] Rick Carney [id number] Rick Carney 01/18/2025 2 [employer] [facility] INDEMNITY PLAN (INDEMNITY) [id number] Sonia Carney [id number] Rick Carney Notes Date Note Type Note [...] patients safe Traveled 2 weeks ago to [facility]. Covid while was there with complete recovery. [...] is also a possibility REVA SMITH [address] [place], [address], [facility] 04/10/2023 15:33:35 4 text/htm l ROS as noted in the HPI fu BW The patient is participating in this appointment via telemedicine communication with a phone call/video calling service ([employer])The patient consents to use of these platforms [...] tomorrow cont with advil and APAP REVA SMITH [address] [facility], [place], [address], [facility] 04/11/2023 14:31:43 4 text/htm l [...] HPI here Nguyễn LynettePrincess Causey, DO [address] [facility], [place], [address], [facility] 12/27/2023 15:08:33 5 text/htm [...] home study ordered Nguyễn Causey, DO [address] [facility], [place], [address], [facility] 01/21/2025 09:30:13
--- OUTSIDE RECORDS SUMMARY | 2025-01-27 17:07 | XMS_ITS | Encounter Summary ---
Author Organization [facility] Address [address] [place] [address] Phone Care Team Providers Care Receptionist Doctor'S Office Name Role Phone MoyNguyễn jose Unavailable Marko Breaux MD Unavailable Bigrebeca, Nguyễn A DO Primary Care Provider [phone] Nguyễn Vance DO Primary Care Provider [phone] Encounter Details Date Type Department Care Team (Late st Contact Info) Description 05/09/2023 Ancillary Orders [facility], X-Ray - [facility] [address] [place] [address] Malissa Tanner PA [address] [facility] [place] [address] [place] [address] Pneumonia due to infectious organism, unspecified laterality, [...] documented as of this encounter Care Teams Receptionist Doctor'S Office Relationship Specialty Start Date End Date Nguyễn Vance DO [email or web address] PCP - General Internal Medicine 09/16/20 01/15/25 Nguyễn Vance DO [address] [place] [address] PCP - General Internal Medicine 01/16/25 Nguyễn Vance DO Historical LMR Provider 12/13/16 Marko Breaux MD [email or web address] Historical LMR Provider 12/13/16 documented as of this encounter Additional Source Comments The information contained in this document represents components of the legal health record. It is not the complete legal health record.[facility]
--- OUTSIDE RECORDS SUMMARY | 2025-01-27 17:07 | XMS_ITS | Encounter Summary ---
Author Organization [facility] Address [address] [place] [address] [place] [address] Phone Care Team Providers Care Radio Officer Name Role Phone Nguyễn Vance DO Unavailable Conor Hdz MD Unavailable [phone] Elgin Ayoub MD Unavailable [phone] Juan Alonso MD Unavailable [phone] Marko Breaux MD Unavailable Bigda, Nguyễn A DO Primary Care Provider [phone] Bigda, Nguyễn A DO Primary Care Provider [phone] Bigda, Nguyễn A DO Primary Care Provider [phone] Encounter Details Date Type Department Care Team (Latest Contact Info) Description 03/05/2018 Transcribe Orders [address] [address] Marko Breaux MD [address] [place] [address] [email or web address] Hyperlipidemia, unspecified hyperlipidemia type (Primary Dx) Social [...] (03/05/2018 8:06 AM EST) HDL 51 mg/dL [facility] Comment: Interpretation <40 mg/dL: Low HDL cholesterol (major risk factor for CHD) Greater than or equal to 60 mg/dL: High HDL cholesterol ( negative risk factor for CHD) HDL - cholesterol is affected by a number of factors, e.g. smoking, excerise, hormones, sex and age. CHOLESTEROL 160 0 - 240 mg/dL [facility] TRIGLYCERIDES 96 30 - 160 mg/dL [facility] LDL 90 50 - 129 mg/dL [facility] Comment: LDL levels in terms of risk for coronary heart disease: <100 mg/dL: Optimal 100-129 mg/dL: Near or above optimal 130-159 mg/dL: Borderline high 160-189 mg/dL: High >190 mg/dL: Very High CARDIAC RISK RATIO 3.1(L) 3.4 - 5.0 C [facility] Blood 03/05/2018 8:06 AM EST 03/05/2018 8:11 AM EST us Marko Breaux MD LAB BLOOD BKR ORDERABLES Final R esult Performing Organization Address City/State/[facility] Co de Phone Number [address] [address] documented in this encounter Visit Diagnoses Diagnosis Hyperlipidemia, unspecified hyperlipidemia type- Primary documented in this encounter Additional Health Concerns Infection Onset Date Last Indicated Resolved Time CoV-Risk 10/24/2021 10/24/2021 11/04/2021 1:23 AM EDT CoV-Risk 03/01/2024 03/01/2024 03/12/2024 1:22 AM EST Resp-Risk 01/16/2025 01/16/2025 documented as of this encounter Care Teams Radio Officer Relationship Specialty Start Date End Date Nguyễn Vance DO PCP - General 03/02/17 09/15/20 Nguyễn Vance DO PCP - General Internal Medicine 09/16/20 01/15/25 Nguyễn Vance DO [address] [facility] [place] [address] PCP - General Internal Medicine 01/16/25 Nguyễn Vance DO Historical LMR Provider 12/13/16 Conor Hdz MD [address] [address] Historical LMR Provider 12/13/16 2 Elgin Ayoub MD [address] [address] [email or web address] Historical LMR Provider 12/13/16 03/06/21 Juan Alonso MD [address] [place] [address] Historical LMR Provider 12/13/16 Marko Breaux MD [address] [place] [address] [email or web address] Historical LMR Provider 12/13/16 documented as of this encounter Additional Source Comments The information contained in this document represents components of the legal health record. It is not the complete legal health record.[facility]
== END 2025-01-23 13:34 | disposition home or self-care (01) ==
LOC: HO.MANLNP 13:33
PROVIDERS: Visit Provider Internal Medicine
DX: Z12.11 Encounter for screening for malignant neoplasm of colon (principal); I10 Essential (primary) hypertension; I25.10 Atherosclerotic heart disease of native coronary artery without angina pectoris; R05.9 Cough, unspecified
CPT/HCPCS: 82274